=== PATIENT | female | born 1945 | race Caucasian/White ===

== ENCOUNTER 2017-05-03 09:08 | Inpatient (IN) | payer MEDICARE, OTHER ==
[~2017-05-03] VITALS: Ht 152.4 cm; Wt 35.8 kg
[~2017-05-03 09:08] MED LIST: ASPI81TA31 PO; ATOR10TA PO; Acetaminophen PO; CRANBERRY PO; DIAZ2TAB PO; DULO30CA2 PO; GABA100C PO; HYDR-552 PO; LANS15CA13 PO; QUET50TA PO; SODI473S8 TP
[2017-05-03 09:50] LABS: BASOPHILS % (AUTO) 0.7 % (0.0-2.0); EOSINOPHILS # (AUTO) 0.3 K/uL (0.0-0.7); EOSINOPHILS % (AUTO) 4.4 % (0.0-7.0); HEMATOCRIT 34.7 % (31.2-41.9); HEMOGLOBIN 11.1 g/dL (10.9-14.3); LYMPHOCYTES # (AUTO) 1.5 K/uL (20.0-40.0); LYMPHOCYTES % (AUTO) 26.1 % (20.5-51.5); MEAN CORPUSCULAR HGB CONC 32 g/dL (32.3-35.6); MEAN CORPUSCULAR VOLUME 96.9 fL (75.5-95.3); MONOCYTES # (AUTO) 0.7 K/uL (2.0-10.0); MONOCYTES % (AUTO) 11.7 % (0.0-11.0); NEUTROPHILS # (AUTO) 3.4 K/uL (1.8-8.9); NEUTROPHILS % (AUTO) 57.1 % (38.5-71.5); PLATELET COUNT (AUTO) 209 K/uL (179-408); RED BLOOD CELL COUNT(AUTO) 3.58 MIL/uL (3.63-4.92); WHITE BLOOD COUNT (AUTO) 5.9 K/uL (3.8-11.8)
[2017-05-03] MEDS ORDERED: LANS30CA54 PO (09:50)
[2017-05-03] MEDS ORDERED: DULO60CA45 PO (09:50)
[2017-05-03 09:54] LABS: CHLORIDE 102 mmol/L (98-107); CREATININE 0.8 mg/dL (0.6-1.3); GLUCOSE 88 mg/dL (74-106); POTASSIUM 3.6 mmol/L (3.5-5.1); UREA NITROGEN, BLOOD 20 mg/dL (7-18)
[2017-05-03 09:56] LABS: CARBON DIOXIDE 40 mmol/L (21-32)
[2017-05-03 10:06] LABS: ALANINE AMINOTRANSFERASE 11 U/L (14-59); ALKALINE PHOSPHATASE 65 U/L (50-136); ASPARTATE AMINOTRANSFERASE 11 U/L (15-37); BILIRUBIN,DIRECT 0.1 mg/dL (0.0-0.2); BILIRUBIN,TOTAL 0.2 mg/dL (0.2-1.0); TOTAL PROTEIN, SERUM 5.6 g/dL (6.4-8.2)
[2017-05-03 10:17] LABS: *BILIRUBIN,URIN NEGATIVE (NEGATIVE); *BLOOD, URINE 2+ (NEGATIVE); *CLARITY,URINE CLOUDY (CLEAR); *COLOR,URINE YELLOW (YELLOW); *KETONES,URINE NEGATIVE (NEGATIVE); *PROTEIN,URINE 2+ (NEGATIVE); *UROBILINOGEN,URINE 0.2 E.U./dl (NORMAL); LEUKOCYTE ESTERASE ,URINE 2+ (NEGATIVE); NITRITE, URINE NEGATIVE (NEGATIVE); PH,URINE 6.5 (5.0-8.0); UGLUCOSE NEGATIVE (NEGATIVE)
[2017-05-03 10:24] LABS: ABG BASE EXCESS 11.6 mmol/L; ABG HCO3 39.1 mmol/L; ABG PH 7.378 (7.350-7.450); ABG PO2 54.2 mmHg (75.0-100.0); ABG SITE RIGHT RADIAL; ABG TOTAL HEMOGLOBIN 11.5 G/dL (12.0-16.0); COHb 1.8 % (0.5-1.5); MetHb 0.3 % (0.0-1.5); O2Hb 84.1 % (94.0-97.0); VENT MODE Nasal Cannula
[2017-05-03 10:41] LABS: BACTERIA,URINE NONE SEEN /HPF (NONE SEEN); MUCUS,URINE FEW /LPF (0-FEW); SQUAMOUS EPITHELIAL CELL,UR FEW /HPF (NONE SEEN); WBC,URINE TNTC /HPF (0-3); YEAST,URINE MODERATE /HPF (NONE SEEN)
[2017-05-03] MEDS ORDERED: CEFTRIAXONE 1 G in IV DEXTROSE 5% 50 ML IV ONE (10:45)
[2017-05-03] MEDS ORDERED: FUROSEMIDE 20 MG/2 ML VIAL IV ONE ×2 (10:45→22:45)
[2017-05-03] MEDS ORDERED: ACETAMINOPHEN ES 500 MG TABLET PO ONE (11:00)
[2017-05-03] MEDS ORDERED: ACETAMINOPHEN ES 500 MG TABLET ONE (11:14)
[2017-05-03 13:23] VITALS: BP 103/82
[2017-05-03] MEDS ORDERED: HYDROMORPHONE 1 MG/1 ML DISP.SYRIN IV PRN ×2 (15:00→17:15)
[2017-05-03] MEDS ORDERED: POTASSIUM CHLORIDE 20 MEQ in IV D5/ 0.9% NACL 1,000 ML IV PRN (15:00)
[2017-05-03] MEDS ORDERED: ALBUTEROL SULFATE 2.5 MG/3 ML NEBU NEB PRN (15:00)
[2017-05-03] MEDS ORDERED: ALBUTEROL SULFATE 2.5 MG/ 0.5 ML NEBU NEB PRN (15:15)
[2017-05-03 15:54] VITALS: BP 144/70
[2017-05-03] MEDS ORDERED: FLUCONAZOLE 200 MG/NS 100ML IV 100 MG in PREMIXED 1 EACH IV SCH (16:00)
[2017-05-03] MEDS ORDERED: DIAZEPAM 10 MG/2 ML DISP.SYRIN IV PRN (17:15)
[2017-05-03] MEDS: HYDROMORPHONE 2 MG/1 ML DISP.SYRIN IV PRN (17:33)
[2017-05-03] MEDS: VANCOMYCIN IV 750 MG in IV DEXTROSE 5% 250 ML IV SCH (17:56)
[2017-05-03] MEDS ORDERED: AZITHROMYCIN IV 500 MG in IV DEXTROSE 5% 250 ML IV SCH (18:00)
[2017-05-03] MEDS: ALBUTEROL SULFATE 2.5 MG/3 ML NEBU NEB SCH (19:57)
[2017-05-03 20:00] VITALS: BP 143/63
[2017-05-03] MEDS: ATORVASTATIN 40 MG TABLET PO SCH (21:00)
[2017-05-03] MEDS: methylPREDNISolone SOD SUCC 40 MG/ML VIAL IV SCH (21:20)
[2017-05-03] MEDS: PIPERACILLIN/TAZOBACTAM/D5W 3.375 G in PREMIXED 1 EACH IV SCH (21:20)
[2017-05-03] MEDS: ENOXAPARIN SODIUM 30 MG/0.3 ML DISP.SYRIN SUBCUT SCH (21:28)
[2017-05-03] MEDS: ONDANSETRON 4 MG/2 ML VIAL IV PRN (21:37)
[2017-05-03] MEDS: IPRATROPIUM BROMIDE 0.5 MG/2.5 ML NEBU NEB PRN (22:38)
[2017-05-03] MEDS ORDERED: FUROSEMIDE 20 MG/2 ML VIAL ONE (23:23)
[2017-05-03] MEDS: LORAZEPAM 2 MG/1 ML VIAL IV PRN (23:59)
[2017-05-04] VITALS (15 sets, daily range): BP systolic 115–159; BP diastolic 52–102
[2017-05-04] MEDS: HYDROMORPHONE 2 MG/1 ML DISP.SYRIN IV PRN ×3 (02:29→21:41)
[2017-05-04] MEDS: PIPERACILLIN/TAZOBACTAM/D5W 3.375 G in PREMIXED 1 EACH IV SCH ×3 (05:37→21:33)
[2017-05-04 06:18] LABS: BASOPHILS % (AUTO) 0.3 % (0.0-2.0); EOSINOPHILS % (AUTO) 0.3 % (0.0-7.0); HEMATOCRIT 36.5 % (37-47); HEMOGLOBIN 11.8 G/DL (12.0-16.0); LYMPHOCYTES # (AUTO) 0.6 K/UL (0.8-4.8); LYMPHOCYTES % (AUTO) 13.5 % (20.5-51.5); MEAN CORPUSCULAR HEMOGLOBIN 30.8 UUG (27.0-31.0); MEAN CORPUSCULAR HGB CONC 32 g/dL (32.0-37.0); MEAN CORPUSCULAR VOLUME 95.1 FL (81.0-99.0); MONOCYTES # (AUTO) 0.1 K/UL (0.1-1.30); MONOCYTES % (AUTO) 1.9 % (0.0-11.0); NEUTROPHILS # (AUTO) 3.4 K/UL (1.8-8.9); PLATELET COUNT (AUTO) 316 K/UL (150-450); RED BLOOD CELL COUNT(AUTO) 3.84 MIL/UL (4.2-5.4); WHITE BLOOD COUNT (AUTO) 4.1 K/UL (4.0-11.2)
[2017-05-04 06:46] LABS: IRON, SERUM 23 ug/dL (50-175)
[2017-05-04 06:54] LABS: THYROID STIMULATING HORMONE 0.149 mIU/mL (0.358-3.740)
[2017-05-04 07:26] LABS: ALANINE AMINOTRANSFERASE 12 U/L (14-59); ALKALINE PHOSPHATASE 75 U/L (50-136); ASPARTATE AMINOTRANSFERASE 10 U/L (15-37); BILIRUBIN,TOTAL 0.3 mg/dL (0.2-1.0); CHLORIDE 98 mmol/L (98-107); CREATININE 0.6 mg/dL (0.6-1.3); GLUCOSE 132 mg/dL (74-106); MAGNESIUM 1.7 mg/dL (1.8-2.4); PHOSPHOROUS 3.4 mg/dL (2.5-4.9); POTASSIUM 3.6 mmol/L (3.5-5.1); TOTAL PROTEIN, SERUM 6.3 g/dL (6.4-8.2); UREA NITROGEN, BLOOD 11 mg/dL (7-18)
[2017-05-04] MEDS: ALBUTEROL SULFATE 2.5 MG/3 ML NEBU NEB SCH ×3 (07:26→19:24)
[2017-05-04] MEDS: methylPREDNISolone SOD SUCC 40 MG/ML VIAL IV SCH ×2 (08:20→20:43)
[2017-05-04] MEDS: FAMOTIDINE. 20 MG/2 ML VIAL IV SCH (08:21)
[2017-05-04] MEDS: ASPIRIN EC 81 MG TABLET.DR PO SCH ×2 (08:27→09:00)
[2017-05-04 08:28] LABS: CARBON DIOXIDE 41 mmol/L (21-32)
[2017-05-04] MEDS ORDERED: FUROSEMIDE 20 MG/2 ML VIAL IV SCH (09:00)
[2017-05-04 10:31] LABS: ABG HCO3 48.6 mmol/L; ABG PH 7.331 (7.350-7.450); ABG PO2 88.1 mmHg (75.0-100.0); ABG SITE RIGHT RADIAL; ABG TOTAL HEMOGLOBIN 12.8 G/dL (12.0-16.0); COHb 1.6 % (0.5-1.5); MetHb 0.3 % (0.0-1.5); O2Hb 93.9 % (94.0-97.0)
[2017-05-04] MEDS: LORAZEPAM 2 MG/1 ML VIAL IV PRN (11:04)
[2017-05-04] MEDS ORDERED: MAGNESIUM SULFATE/D5W 100 ML IV SCH (11:45)
[2017-05-04] MEDS: IPRATROPIUM BROMIDE 0.5 MG/2.5 ML NEBU NEB PRN (13:19)
[2017-05-04] MEDS ORDERED: Z GUARD REMEDY PASTE 57 GM TUBE TOP PRN (13:45)
[2017-05-04 15:20] LABS: ABG HCO3 45.8 mmol/L; ABG PCO2 68.6 mmHg (35.0-45.0); ABG PH 7.442 (7.350-7.450); ABG PO2 57.4 mmHg (75.0-100.0); ABG SITE LEFT RADIAL; COHb 1.9 % (0.5-1.5); MetHb 0.3 % (0.0-1.5); O2Hb 87.7 % (94.0-97.0); VENT MODE BIPAP
[2017-05-04] MEDS ORDERED: hydrALAZINE HCL 20 MG/1 ML VIAL IV PRN (18:15)
[2017-05-04] MEDS: FUROSEMIDE 40 MG/4 ML VIAL IV SCH (18:28)
[2017-05-04] MEDS: ONDANSETRON 4 MG/2 ML VIAL IV PRN (19:10)
[2017-05-04] MEDS: ATORVASTATIN 40 MG TABLET PO SCH (20:34)
[2017-05-04] MEDS: ENOXAPARIN SODIUM 30 MG/0.3 ML DISP.SYRIN SUBCUT SCH (20:44)
[2017-05-04] MEDS: Z GUARD REMEDY PASTE 57 GM TUBE TOP SCH (20:45)
[2017-05-04] MEDS: VANCOMYCIN IV 750 MG in IV DEXTROSE 5% 250 ML IV SCH (21:33)
[2017-05-05] VITALS (18 sets, daily range): BP systolic 84–128; BP diastolic 32–87
[2017-05-05] MEDS: LORAZEPAM 2 MG/1 ML VIAL IV PRN ×2 (01:00→14:49)
[2017-05-05 04:45] LABS: BASOPHILS # (AUTO) 0.1 K/uL (0.0-8.0); BASOPHILS % (AUTO) 1.3 % (0.0-2.0); HEMATOCRIT 38.9 % (37-47); HEMOGLOBIN 12.5 G/DL (12.0-16.0); LYMPHOCYTES # (AUTO) 0.8 K/UL (0.8-4.8); LYMPHOCYTES % (AUTO) 14.1 % (20.5-51.5); MEAN CORPUSCULAR HEMOGLOBIN 30.1 UUG (27.0-31.0); MEAN CORPUSCULAR HGB CONC 32 g/dL (32.0-37.0); MONOCYTES # (AUTO) 0.3 K/UL (0.1-1.30); MONOCYTES % (AUTO) 6.2 % (0.0-11.0); NEUTROPHILS # (AUTO) 4.3 K/UL (1.8-8.9); NEUTROPHILS % (AUTO) 78.4 % (38.5-71.5); PLATELET COUNT (AUTO) 375 K/UL (150-450); RED BLOOD CELL COUNT(AUTO) 4.14 MIL/UL (4.2-5.4); WHITE BLOOD COUNT (AUTO) 5.5 K/UL (4.0-11.2)
[2017-05-05 05:02] LABS: ALANINE AMINOTRANSFERASE 12 U/L (14-59); ALKALINE PHOSPHATASE 71 U/L (50-136); ASPARTATE AMINOTRANSFERASE 10 U/L (15-37); BILIRUBIN,TOTAL 0.4 mg/dL (0.2-1.0); CHLORIDE 92 mmol/L (98-107); CREATININE 0.8 mg/dL (0.6-1.3); GLUCOSE 116 mg/dL (74-106); LIPASE 59 U/L (73-393); MAGNESIUM 1.9 mg/dL (1.8-2.4); PHOSPHOROUS 3.6 mg/dL (2.5-4.9); POTASSIUM 3.4 mmol/L (3.5-5.1); TOTAL PROTEIN, SERUM 6.7 g/dL (6.4-8.2); UREA NITROGEN, BLOOD 16 mg/dL (7-18)
[2017-05-05 05:12] LABS: CARBON DIOXIDE 46 mmol/L (21-32)
[2017-05-05] MEDS: PIPERACILLIN/TAZOBACTAM/D5W 3.375 G in PREMIXED 1 EACH IV SCH ×3 (05:35→21:49)
[2017-05-05 05:41] LABS: ABG BASE EXCESS 18.1 mmol/L; ABG HCO3 44.6 mmol/L; ABG PCO2 59.7 mmHg (35.0-45.0); ABG PH 7.491 (7.350-7.450); ABG PO2 65.9 mmHg (75.0-100.0); ABG SITE LEFT RADIAL; COHb 1.6 % (0.5-1.5); MetHb 0.3 % (0.0-1.5)
[2017-05-05] MEDS: IV NORMAL SALINE 250 ML IV PRN (06:27)
[2017-05-05] MEDS: ALBUTEROL SULFATE 2.5 MG/3 ML NEBU NEB SCH ×3 (07:56→19:23)
[2017-05-05] MEDS: FUROSEMIDE 40 MG/4 ML VIAL IV SCH (08:22)
[2017-05-05] MEDS: FAMOTIDINE. 20 MG/2 ML VIAL IV SCH (08:23)
[2017-05-05] MEDS: methylPREDNISolone SOD SUCC 40 MG/ML VIAL IV SCH ×2 (08:23→20:20)
[2017-05-05] MEDS: Z GUARD REMEDY PASTE 57 GM TUBE TOP SCH ×2 (08:25→20:34)
[2017-05-05] MEDS: ASPIRIN EC 81 MG TABLET.DR PO SCH (08:58)
[2017-05-05] MEDS: HYDROMORPHONE 2 MG/1 ML DISP.SYRIN IV PRN (11:52)
[2017-05-05] MEDS ORDERED: POTASSIUM CHLORIDE 50 ML IV SCH (12:45)
[2017-05-05] MEDS ORDERED: POTASSIUM CHLORIDE 10 MEQ in IV DEXTROSE 5% 100 ML IV ONE (14:00)
[2017-05-05] MEDS ORDERED: ACETAzolamide SODIUM 500 MG VIAL IV ONE (15:30)
[2017-05-05] MEDS ORDERED: DIAZEPAM 2 MG TABLET PO PRN (17:00)
[2017-05-05] MEDS ORDERED: BISACODYL 10 MG SUPP.RECT RC PRN (17:15)
[2017-05-05] MEDS: GABAPENTIN 100 MG CAPSULE PO SCH (17:38)
[2017-05-05] MEDS: DULOXETINE 60 MG CAPSULE.DR PO SCH (17:39)
[2017-05-05] MEDS: ATORVASTATIN 40 MG TABLET PO SCH (20:20)
[2017-05-05] MEDS: ENOXAPARIN SODIUM 30 MG/0.3 ML DISP.SYRIN SUBCUT SCH (20:21)
[2017-05-05] MEDS: QUETIAPINE FUMARATE 25 MG TABLET PO SCH (20:35)
[2017-05-06] VITALS (7 sets, daily range): BP systolic 99–130; BP diastolic 51–80
[2017-05-06] MEDS: VANCOMYCIN IV 750 MG in IV DEXTROSE 5% 250 ML IV SCH (03:28)
[2017-05-06] MEDS: HYDROMORPHONE 2 MG/1 ML DISP.SYRIN IV PRN (04:47)
[2017-05-06 04:52] LABS: BASOPHILS # (AUTO) 0.1 K/uL (0.0-8.0); HEMATOCRIT 39.8 % (37-47); HEMOGLOBIN 12.9 G/DL (12.0-16.0); LYMPHOCYTES # (AUTO) 0.7 K/UL (0.8-4.8); LYMPHOCYTES % (AUTO) 9.2 % (20.5-51.5); MEAN CORPUSCULAR HEMOGLOBIN 30.5 UUG (27.0-31.0); MEAN CORPUSCULAR HGB CONC 32 g/dL (32.0-37.0); MEAN CORPUSCULAR VOLUME 94.2 FL (81.0-99.0); MONOCYTES # (AUTO) 0.3 K/UL (0.1-1.30); MONOCYTES % (AUTO) 3.5 % (0.0-11.0); NEUTROPHILS # (AUTO) 6.5 K/UL (1.8-8.9); NEUTROPHILS % (AUTO) 86.3 % (38.5-71.5); PLATELET COUNT (AUTO) 359 K/UL (150-450); RED BLOOD CELL COUNT(AUTO) 4.22 MIL/UL (4.2-5.4); WHITE BLOOD COUNT (AUTO) 7.6 K/UL (4.0-11.2)
[2017-05-06 05:05] LABS: ALANINE AMINOTRANSFERASE 13 U/L (14-59); ALKALINE PHOSPHATASE 61 U/L (50-136); ASPARTATE AMINOTRANSFERASE 26 U/L (15-37); BILIRUBIN,TOTAL 0.4 mg/dL (0.2-1.0); CARBON DIOXIDE 38 mmol/L (21-32); CHLORIDE 94 mmol/L (98-107); CREATININE 1.5 mg/dL (0.6-1.3); GLUCOSE 239 mg/dL (74-106); PHOSPHOROUS 4.3 mg/dL (2.5-4.9); POTASSIUM 3.9 mmol/L (3.5-5.1); TOTAL PROTEIN, SERUM 6.6 g/dL (6.4-8.2); UREA NITROGEN, BLOOD 32 mg/dL (7-18)
[2017-05-06] MEDS: IV NORMAL SALINE 250 ML IV PRN (05:28)
[2017-05-06] MEDS: PIPERACILLIN/TAZOBACTAM/D5W 3.375 G in PREMIXED 1 EACH IV SCH ×3 (05:29→21:20)
[2017-05-06] MEDS: ALBUTEROL SULFATE 2.5 MG/3 ML NEBU NEB SCH ×3 (07:35→19:44)
[2017-05-06] MEDS: GABAPENTIN 100 MG CAPSULE PO SCH (09:26)
[2017-05-06] MEDS: Z GUARD REMEDY PASTE 57 GM TUBE TOP SCH ×2 (09:26→21:24)
[2017-05-06] MEDS: DULOXETINE 60 MG CAPSULE.DR PO SCH (09:26)
[2017-05-06] MEDS: ASPIRIN EC 81 MG TABLET.DR PO SCH (09:26)
[2017-05-06] MEDS: FUROSEMIDE 40 MG/4 ML VIAL IV SCH (09:27)
[2017-05-06] MEDS: FAMOTIDINE 20 MG TABLET PO SCH (09:33)
[2017-05-06] MEDS: ACETAMINOPHEN 650 MG SUPP.RECT RC PRN (09:33)
[2017-05-06] MEDS ORDERED: IV NS 1000 ML 1,000 ML IV PRN (10:30)
[2017-05-06] MEDS: ATORVASTATIN 40 MG TABLET PO SCH (21:00)
[2017-05-06] MEDS: QUETIAPINE FUMARATE 25 MG TABLET PO SCH (21:00)
[2017-05-06] MEDS: ENOXAPARIN SODIUM 30 MG/0.3 ML DISP.SYRIN SUBCUT SCH (21:21)
[2017-05-07] VITALS (7 sets, daily range): BP systolic 100–128; BP diastolic 52–79
[2017-05-07] MEDS: HYDROMORPHONE 2 MG/1 ML DISP.SYRIN IV PRN ×2 (00:34→05:17)
[2017-05-07] MEDS: PIPERACILLIN/TAZOBACTAM/D5W 3.375 G in PREMIXED 1 EACH IV SCH ×3 (05:27→22:09)
[2017-05-07 06:55] LABS: BASOPHILS # (AUTO) 0.1 K/uL (0.0-8.0); BASOPHILS % (AUTO) 0.4 % (0.0-2.0); EOSINOPHILS # (AUTO) 0.1 K/uL (0.0-0.7); EOSINOPHILS % (AUTO) 1.1 % (0.0-7.0); HEMATOCRIT 43.5 % (37-47); HEMOGLOBIN 13.8 G/DL (12.0-16.0); LYMPHOCYTES # (AUTO) 2.3 K/UL (0.8-4.8); LYMPHOCYTES % (AUTO) 17.8 % (20.5-51.5); MEAN CORPUSCULAR HEMOGLOBIN 30.4 UUG (27.0-31.0); MEAN CORPUSCULAR HGB CONC 32 g/dL (32.0-37.0); MEAN CORPUSCULAR VOLUME 95.5 FL (81.0-99.0); MONOCYTES # (AUTO) 1.4 K/UL (0.1-1.30); MONOCYTES % (AUTO) 10.6 % (0.0-11.0); NEUTROPHILS # (AUTO) 9.2 K/UL (1.8-8.9); NEUTROPHILS % (AUTO) 70.1 % (38.5-71.5); PLATELET COUNT (AUTO) 376 K/UL (150-450); RED BLOOD CELL COUNT(AUTO) 4.55 MIL/UL (4.2-5.4); WHITE BLOOD COUNT (AUTO) 13.1 K/UL (4.0-11.2)
[2017-05-07 07:06] LABS: CHLORIDE 96 mmol/L (98-107); CREATININE 1.1 mg/dL (0.6-1.3); GLUCOSE 125 mg/dL (74-106); MAGNESIUM 2.2 mg/dL (1.8-2.4); PHOSPHOROUS 4.5 mg/dL (2.5-4.9); UREA NITROGEN, BLOOD 35 mg/dL (7-18)
[2017-05-07 07:10] LABS: CARBON DIOXIDE 40 mmol/L (21-32); POTASSIUM 2.5 mmol/L (3.5-5.1)
[2017-05-07] MEDS: ALBUTEROL SULFATE 2.5 MG/3 ML NEBU NEB SCH ×3 (08:17→19:49)
[2017-05-07 08:56] LABS: ABG BASE EXCESS 9.6 mmol/L; ABG HCO3 41.6 mmol/L; ABG PCO2 102.1 mmHg (35.0-45.0); ABG PH 7.228 (7.350-7.450); ABG PO2 68.9 mmHg (75.0-100.0); ABG SITE RIGHT RADIAL; ABG TOTAL HEMOGLOBIN 14.3 G/dL (12.0-16.0); COHb 2.1 % (0.5-1.5); MetHb 0.3 % (0.0-1.5); O2Hb 87.8 % (94.0-97.0); VENT MODE Nasal Cannula
[2017-05-07] MEDS: GABAPENTIN 100 MG CAPSULE PO SCH (09:00)
[2017-05-07] MEDS: DULOXETINE 30 MG CAPSULE.DR PO SCH (09:00)
[2017-05-07] MEDS: methylPREDNISolone SOD SUCC 40 MG/ML VIAL IV SCH ×2 (09:00→11:32)
[2017-05-07] MEDS: FAMOTIDINE 20 MG TABLET PO SCH ×2 (09:00→11:31)
[2017-05-07] MEDS: ASPIRIN EC 81 MG TABLET.DR PO SCH ×2 (09:00→11:31)
[2017-05-07] MEDS: Z GUARD REMEDY PASTE 57 GM TUBE TOP SCH ×2 (09:16→21:09)
[2017-05-07] MEDS ORDERED: FUROSEMIDE 20 MG/2 ML VIAL IV SCH ×2 (10:30→12:00)
[2017-05-07] MEDS ORDERED: POTASSIUM CHLORIDE 50 ML IV SCH (10:30)
[2017-05-07] MEDS: ACETAzolamide SODIUM 500 MG VIAL IV SCH (10:45)
[2017-05-07] MEDS: POTASSIUM CHLORIDE 10 MEQ in IV DEXTROSE 5% 50 ML IV SCH ×2 (12:59→13:10)
[2017-05-07 14:56] LABS: *BILIRUBIN,URIN NEGATIVE (NEGATIVE); *BLOOD, URINE NEGATIVE (NEGATIVE); *CLARITY,URINE CLEAR (CLEAR); *COLOR,URINE LIGHT YELLOW (YELLOW); *KETONES,URINE NEGATIVE (NEGATIVE); *PROTEIN,URINE NEGATIVE (NEGATIVE); *UROBILINOGEN,URINE 0.2 E.U./dl (NORMAL); LEUKOCYTE ESTERASE ,URINE TRACE (NEGATIVE); NITRITE, URINE NEGATIVE (NEGATIVE); UGLUCOSE NEGATIVE (NEGATIVE)
[2017-05-07 15:01] LABS: BACTERIA,URINE FEW /HPF (NONE SEEN); RBC,URINE 0-3 /HPF (0-3); SQUAMOUS EPITHELIAL CELL,UR FEW /HPF (NONE SEEN)
[2017-05-07 16:05] LABS: ABG BASE EXCESS 11.9 mmol/L; ABG HCO3 39.9 mmol/L; ABG PCO2 67.7 mmHg (35.0-45.0); ABG PH 7.388 (7.350-7.450); ABG PO2 69.6 mmHg (75.0-100.0); ABG SITE LEFT RADIAL; ABG TOTAL HEMOGLOBIN 13.7 G/dL (12.0-16.0); COHb 2.2 % (0.5-1.5); MetHb 0.3 % (0.0-1.5); O2Hb 91.4 % (94.0-97.0); VENT MODE Nasal Cannula
[2017-05-07] MEDS: ACETAMINOPHEN 650 MG SUPP.RECT RC PRN (17:35)
[2017-05-07] MEDS: ATORVASTATIN 40 MG TABLET PO SCH (21:00)
[2017-05-07] MEDS: QUETIAPINE FUMARATE 25 MG TABLET PO SCH (21:00)
[2017-05-07] MEDS: [UNRECOGNIZED DRUG - OTHER] EACHEYE SCH (21:07)
[2017-05-07] MEDS: ENOXAPARIN SODIUM 30 MG/0.3 ML DISP.SYRIN SUBCUT SCH (21:08)
[2017-05-07] MEDS: [UNRECOGNIZED DRUG - OTHER] LEFTEYE SCH (21:08)
[2017-05-08] VITALS (7 sets, daily range): BP systolic 79–115; BP diastolic 42–60
[2017-05-08] MEDS: QUETIAPINE FUMARATE 25 MG TABLET PO SCH (02:18)
[2017-05-08] MEDS: ATORVASTATIN 40 MG TABLET PO SCH ×2 (02:19→21:00)
[2017-05-08] MEDS ORDERED: IV NORMAL SALINE 250 ML IV ONE (04:30)
[2017-05-08] MEDS: PIPERACILLIN/TAZOBACTAM/D5W 3.375 G in PREMIXED 1 EACH IV SCH ×3 (05:28→21:03)
[2017-05-08 06:24] LABS: ABG BASE EXCESS 6.1 mmol/L; ABG HCO3 32.4 mmol/L; ABG PCO2 54.2 mmHg (35.0-45.0); ABG PH 7.394 (7.350-7.450); ABG PO2 67.4 mmHg (75.0-100.0); ABG SITE RIGHT RADIAL; ABG TOTAL HEMOGLOBIN 12.4 G/dL (12.0-16.0); COHb 1.6 % (0.5-1.5); MetHb 0.3 % (0.0-1.5); O2Hb 91.2 % (94.0-97.0); VENT MODE Nasal Cannula
[2017-05-08 07:29] LABS: BASOPHILS % (AUTO) 0.2 % (0.0-2.0); EOSINOPHILS % (AUTO) 0.5 % (0.0-7.0); HEMOGLOBIN 12.4 G/DL (12.0-16.0); LYMPHOCYTES # (AUTO) 1.3 K/UL (0.8-4.8); LYMPHOCYTES % (AUTO) 13.5 % (20.5-51.5); MEAN CORPUSCULAR HEMOGLOBIN 30.2 UUG (27.0-31.0); MEAN CORPUSCULAR HGB CONC 32 g/dL (32.0-37.0); MEAN CORPUSCULAR VOLUME 94.4 FL (81.0-99.0); MONOCYTES # (AUTO) 0.8 K/UL (0.1-1.30); MONOCYTES % (AUTO) 8.7 % (0.0-11.0); NEUTROPHILS # (AUTO) 7.3 K/UL (1.8-8.9); NEUTROPHILS % (AUTO) 77.1 % (38.5-71.5)
[2017-05-08 07:34] LABS: HEMATOCRIT 38.7 % (37-47); PLATELET COUNT (AUTO) 276 K/UL (150-450); RED BLOOD CELL COUNT(AUTO) 4.09 MIL/UL (4.2-5.4); WHITE BLOOD COUNT (AUTO) 9.7 K/UL (4.0-11.2)
[2017-05-08 07:35] LABS: CARBON DIOXIDE 35 mmol/L (21-32); CHLORIDE 101 mmol/L (98-107); CREATININE 1.2 mg/dL (0.6-1.3); GLUCOSE 132 mg/dL (74-106); PHOSPHOROUS 3.1 mg/dL (2.5-4.9); UREA NITROGEN, BLOOD 45 mg/dL (7-18)
[2017-05-08 07:40] LABS: POTASSIUM 2.4 mmol/L (3.5-5.1)
[2017-05-08] MEDS: ALBUTEROL SULFATE 2.5 MG/3 ML NEBU NEB SCH ×3 (08:33→19:23)
[2017-05-08] MEDS: DULOXETINE 30 MG CAPSULE.DR PO SCH (09:00)
[2017-05-08] MEDS: GABAPENTIN 100 MG CAPSULE PO SCH (09:00)
[2017-05-08] MEDS: CHOLECALCIFEROL 1,000 UNIT TABLET PO SCH (09:18)
[2017-05-08] MEDS: methylPREDNISolone SOD SUCC 40 MG/ML VIAL IV SCH (09:18)
[2017-05-08] MEDS: CYANOCOBALAMIN 1000 MCG/ML VIAL IM SCH (09:18)
[2017-05-08] MEDS: ACETAzolamide SODIUM 500 MG VIAL IV SCH (09:18)
[2017-05-08] MEDS: FAMOTIDINE 20 MG TABLET PO SCH (09:18)
[2017-05-08] MEDS: ASPIRIN EC 81 MG TABLET.DR PO SCH (09:18)
[2017-05-08] MEDS: Z GUARD REMEDY PASTE 57 GM TUBE TOP SCH ×2 (09:19→21:03)
[2017-05-08] MEDS ORDERED: FUROSEMIDE 20 MG/2 ML VIAL IV SCH (09:49)
[2017-05-08] MEDS: ACETAMINOPHEN 650 MG SUPP.RECT RC PRN ×2 (12:21→22:38)
[2017-05-08] MEDS: FUROSEMIDE 20 MG/2 ML VIAL IV SCH (12:21)
[2017-05-08] MEDS ORDERED: POTASSIUM CHLORIDE 20 MEQ TAB.PRT.SR PO ONE (13:45)
[2017-05-08] MEDS ORDERED: POTASSIUM CHLORIDE 20 MEQ POWDER PACKET PO ONE (14:15)
[2017-05-08] MEDS: LACTOBACILLUS RHAMNOSUS GG 1 EACH CAPSULE PO SCH (21:00)
[2017-05-08] MEDS: ENOXAPARIN SODIUM 30 MG/0.3 ML DISP.SYRIN SUBCUT SCH (21:02)
[2017-05-08] MEDS: [UNRECOGNIZED DRUG - OTHER] LEFTEYE SCH ×2 (21:03→21:36)
[2017-05-08] MEDS: [UNRECOGNIZED DRUG - OTHER] EACHEYE SCH ×2 (21:04→21:37)
[2017-05-08] MEDS: METRONIDAZOLE 500 MG/NS 100ML 500 MG in PREMIXED 1 EACH IV SCH (23:28)
[2017-05-08] MEDS ORDERED: METRONIDAZOLE 500 MG/NS 100ML 100 ML IV ONE (23:37)
[2017-05-09] VITALS: BP 101/60
[2017-05-09] MEDS ORDERED: METRONIDAZOLE 500 MG/NS 100ML 100 ML IV ONE (00:13)
[2017-05-09 04:00] VITALS: BP 132/55
[2017-05-09] MEDS: PIPERACILLIN/TAZOBACTAM/D5W 3.375 G in PREMIXED 1 EACH IV SCH ×3 (05:28→22:57)
[2017-05-09] MEDS: METRONIDAZOLE 500 MG/NS 100ML 500 MG in PREMIXED 1 EACH IV SCH ×2 (06:39→14:22)
[2017-05-09 07:09] LABS: BASOPHILS % (AUTO) 0.4 % (0.0-2.0); EOSINOPHILS # (AUTO) 0.1 K/uL (0.0-0.7); EOSINOPHILS % (AUTO) 0.9 % (0.0-7.0); HEMATOCRIT 38.6 % (31.2-41.9); HEMOGLOBIN 12.5 g/dL (10.9-14.3); LYMPHOCYTES # (AUTO) 1.4 K/uL (20.0-40.0); LYMPHOCYTES % (AUTO) 16.1 % (20.5-51.5); MEAN CORPUSCULAR HGB CONC 32 g/dL (32.3-35.6); MEAN CORPUSCULAR VOLUME 95.8 fL (75.5-95.3); MONOCYTES # (AUTO) 0.8 K/uL (2.0-10.0); MONOCYTES % (AUTO) 9.7 % (0.0-11.0); NEUTROPHILS # (AUTO) 6.3 K/uL (1.8-8.9); NEUTROPHILS % (AUTO) 72.9 % (38.5-71.5); PLATELET COUNT (AUTO) 267 K/uL (179-408); RED BLOOD CELL COUNT(AUTO) 4.03 MIL/uL (3.63-4.92); WHITE BLOOD COUNT (AUTO) 8.6 K/uL (3.8-11.8)
[2017-05-09 07:12] LABS: CARBON DIOXIDE 33 mmol/L (21-32); CHLORIDE 105 mmol/L (98-107); CREATININE 0.9 mg/dL (0.6-1.3); GLUCOSE 113 mg/dL (74-106); MAGNESIUM 2.2 mg/dL (1.8-2.4); PHOSPHOROUS 3.2 mg/dL (2.5-4.9); POTASSIUM 3.1 mmol/L (3.5-5.1); UREA NITROGEN, BLOOD 45 mg/dL (7-18)
[2017-05-09] MEDS: ALBUTEROL SULFATE 2.5 MG/3 ML NEBU NEB SCH ×3 (07:42→19:37)
[2017-05-09] MEDS: IPRATROPIUM BROMIDE 0.5 MG/2.5 ML NEBU NEB PRN ×2 (07:42→19:37)
[2017-05-09] MEDS: ACETAMINOPHEN 650 MG SUPP.RECT RC PRN (08:03)
[2017-05-09] MEDS: CYANOCOBALAMIN 1000 MCG/ML VIAL IM SCH (08:49)
[2017-05-09] MEDS: methylPREDNISolone SOD SUCC 40 MG/ML VIAL IV SCH (08:49)
[2017-05-09] MEDS: ACETAzolamide SODIUM 500 MG VIAL IV SCH (08:50)
[2017-05-09] MEDS: DULOXETINE 30 MG CAPSULE.DR PO SCH (08:50)
[2017-05-09] MEDS: ASPIRIN EC 81 MG TABLET.DR PO SCH (08:50)
[2017-05-09] MEDS: GABAPENTIN 100 MG CAPSULE PO SCH (08:50)
[2017-05-09] MEDS: FAMOTIDINE 20 MG TABLET PO SCH (08:50)
[2017-05-09] MEDS: CHOLECALCIFEROL 1,000 UNIT TABLET PO SCH (08:50)
[2017-05-09] MEDS: Z GUARD REMEDY PASTE 57 GM TUBE TOP SCH ×2 (08:51→20:38)
[2017-05-09] MEDS: LACTOBACILLUS RHAMNOSUS GG 1 EACH CAPSULE PO SCH ×2 (08:54→20:38)
[2017-05-09] MEDS ORDERED: POTASSIUM CHLORIDE 50 ML IV SCH (10:30)
[2017-05-09] MEDS: FUROSEMIDE 20 MG/2 ML VIAL IV SCH (11:22)
[2017-05-09 11:25] VITALS: BP 104/51
[2017-05-09] MEDS ORDERED: POTASSIUM CHLORIDE 20 MEQ POWDER PACKET PO ONE (12:15)
[2017-05-09 15:34] VITALS: BP 103/57
[2017-05-09 20:00] VITALS: BP 130/77
[2017-05-09] MEDS: [UNRECOGNIZED DRUG - OTHER] EACHEYE SCH (20:37)
[2017-05-09] MEDS: ATORVASTATIN 40 MG TABLET PO SCH (20:38)
[2017-05-09] MEDS: [UNRECOGNIZED DRUG - OTHER] LEFTEYE SCH (20:38)
[2017-05-09] MEDS: ENOXAPARIN SODIUM 30 MG/0.3 ML DISP.SYRIN SUBCUT SCH (20:40)
[2017-05-09] MEDS: QUETIAPINE FUMARATE 25 MG TABLET PO SCH (20:41)
[2017-05-10] VITALS: BP 133/66
[2017-05-10] MEDS: HYDROCODONE/APAP 5-325MG TABLET PO PRN ×2 (00:02→08:07)
[2017-05-10] MEDS: HYDROMORPHONE 2 MG/1 ML DISP.SYRIN IV PRN (01:37)
[2017-05-10 04:00] VITALS: BP 113/59
[2017-05-10 05:26] VITALS: BP 113/59
[2017-05-10] MEDS: PIPERACILLIN/TAZOBACTAM/D5W 3.375 G in PREMIXED 1 EACH IV SCH ×2 (05:30→13:37)
[2017-05-10] MEDS: ALBUTEROL SULFATE 2.5 MG/3 ML NEBU NEB SCH ×2 (07:16→13:04)
[2017-05-10 07:47] LABS: BASOPHILS % (AUTO) 0.3 % (0.0-2.0); EOSINOPHILS # (AUTO) 0.1 K/uL (0.0-0.7); EOSINOPHILS % (AUTO) 0.8 % (0.0-7.0); HEMATOCRIT 35.6 % (37-47); HEMOGLOBIN 11.2 G/DL (12.0-16.0); LYMPHOCYTES # (AUTO) 1.4 K/UL (0.8-4.8); LYMPHOCYTES % (AUTO) 14.3 % (20.5-51.5); MEAN CORPUSCULAR HEMOGLOBIN 29.9 UUG (27.0-31.0); MEAN CORPUSCULAR HGB CONC 32 g/dL (32.0-37.0); MEAN CORPUSCULAR VOLUME 94.9 FL (81.0-99.0); MONOCYTES # (AUTO) 0.8 K/UL (0.1-1.30); MONOCYTES % (AUTO) 8.2 % (0.0-11.0); NEUTROPHILS # (AUTO) 7.6 K/UL (1.8-8.9); NEUTROPHILS % (AUTO) 76.4 % (38.5-71.5); PLATELET COUNT (AUTO) 279 K/UL (150-450); RED BLOOD CELL COUNT(AUTO) 3.76 MIL/UL (4.2-5.4); WHITE BLOOD COUNT (AUTO) 9.9 K/UL (4.0-11.2)
[2017-05-10 08:00] LABS: CARBON DIOXIDE 29 mmol/L (21-32); CHLORIDE 106 mmol/L (98-107); CREATININE 0.9 mg/dL (0.6-1.3); GLUCOSE 95 mg/dL (74-106); PHOSPHOROUS 3.4 mg/dL (2.5-4.9); POTASSIUM 3.6 mmol/L (3.5-5.1); UREA NITROGEN, BLOOD 40 mg/dL (7-18)
[2017-05-10] MEDS: GABAPENTIN 100 MG CAPSULE PO SCH ×3 (08:41→11:00)
[2017-05-10] MEDS: LACTOBACILLUS RHAMNOSUS GG 1 EACH CAPSULE PO SCH (08:41)
[2017-05-10] MEDS: ASPIRIN EC 81 MG TABLET.DR PO SCH (08:41)
[2017-05-10] MEDS: DULOXETINE 30 MG CAPSULE.DR PO SCH (08:41)
[2017-05-10] MEDS: FAMOTIDINE 20 MG TABLET PO SCH (08:41)
[2017-05-10] MEDS: CYANOCOBALAMIN 1000 MCG/ML VIAL IM SCH (08:42)
[2017-05-10] MEDS: methylPREDNISolone SOD SUCC 40 MG/ML VIAL IV SCH (08:42)
[2017-05-10] MEDS: CHOLECALCIFEROL 1,000 UNIT TABLET PO SCH (08:42)
[2017-05-10] MEDS: Z GUARD REMEDY PASTE 57 GM TUBE TOP SCH (08:43)
[2017-05-10] MEDS ORDERED: ACETAzolamide 250 MG TABLET PO SCH (09:00)
[2017-05-10 11:28] VITALS: BP 96/50
[2017-05-10] MEDS ORDERED: PRED20TA PO (13:58)
[2017-05-10] MEDS ORDERED: POTA10TA15 PO (13:58)
[2017-05-10] MEDS ORDERED: FURO-152 PO (13:58)
[2017-05-10] MEDS ORDERED: LEVO500T90 PO (13:58)
[2017-05-10] MEDS ORDERED: ALBU2.5V38 NEB (13:58)
[2017-05-10] MEDS ORDERED: LACT1CAP57 PO (13:58)
[2017-05-10] MEDS ORDERED: PRED10TA PO (13:58)
[2017-05-10 15:31] VITALS: BP 94/46
== END 2017-05-10 16:09 | disposition home health service (06) | DRG 871 ==
LOC: ER 09:08 → TELE 12:20 → CCU 05-04 11:36 → MED 05-06 06:00 → TELE 05-06 06:57
PROVIDERS: ADMIT Internal Medicine; ATTEND Internal Medicine
PROC: 05H533Z Insertion of Infusion Device into Right Subclavian Vein, Percutaneous Approach (ICD-10-PCS; 2017-05-03)
PROC: 5A09357 Assistance with Respiratory Ventilation, Less than 24 Consecutive Hours, Continuous Positive Airway Pressure (ICD-10-PCS; principal; 2017-05-04)
DX: A41.9 Sepsis, unspecified organism (principal); J69.0 Pneumonitis due to inhalation of food and vomit; J96.21 Acute and chronic respiratory failure with hypoxia; E43 Unspecified severe protein-calorie malnutrition; G93.40 Encephalopathy, unspecified; I50.33 Acute on chronic diastolic (congestive) heart failure; N17.9 Acute kidney failure, unspecified; D68.59 Other primary thrombophilia; E83.42 Hypomagnesemia; J96.22 Acute and chronic respiratory failure with hypercapnia; R53.2 Functional quadriplegia; B37.49 Other urogenital candidiasis; J44.0 Chronic obstructive pulmonary disease with (acute) lower respiratory infection; M84.48XA Pathological fracture, other site, initial encounter for fracture; J44.1 Chronic obstructive pulmonary disease with (acute) exacerbation; G35 Multiple sclerosis; D63.8 Anemia in other chronic diseases classified elsewhere; I11.0 Hypertensive heart disease with heart failure; D50.9 Iron deficiency anemia, unspecified; E87.6 Hypokalemia; F17.210 Nicotine dependence, cigarettes, uncomplicated; F41.9 Anxiety disorder, unspecified; M06.9 Rheumatoid arthritis, unspecified; Z90.710 Acquired absence of both cervix and uterus; Z98.2 Presence of cerebrospinal fluid drainage device; Z87.440 Personal history of urinary (tract) infections; Z86.011 Personal history of benign neoplasm of the brain; E05.90 Thyrotoxicosis, unspecified without thyrotoxic crisis or storm; I25.10 Atherosclerotic heart disease of native coronary artery without angina pectoris; I25.2 Old myocardial infarction; Z79.899 Other long term (current) drug therapy; J84.10 Pulmonary fibrosis, unspecified; E88.09 Other disorders of plasma-protein metabolism, not elsewhere classified; K76.9 Liver disease, unspecified; L89.899 Pressure ulcer of other site, unspecified stage; Z99.81 Dependence on supplemental oxygen; G89.4 Chronic pain syndrome
CPT/HCPCS: 36415; 36600; 70030-TC; 71010; 82306; 83550; 83605; 83690; 83735; 84100; 84443; 85025; 85730; 86850; 86900; 86901; 87040; 87086; 87400; 92526; 92610; 93005; 94640; 94660; 94664; A4663; J1120; J1170; J1450; J1650; J1940; J2060; J2405; J2543; J2920; J3370; J3420; J3475; J3480; J3490; J3590; J7030; J7040; J7042; J7050; J7060

== ENCOUNTER 2017-06-27 07:13 | Day surgery (SDC) | payer MEDICARE, OTHER ==
[~2017-06-27 07:13] MED LIST changes: +ALBU2.5V38 NEB; -Acetaminophen PO; +BALANCED SALT IRRIG SOLN COMB1 500 ML, EPINEPHRINE-PF 1:1000 1 MG IO ONE; -CRANBERRY PO; -DIAZ2TAB PO; -DULO30CA2 PO; +DULO60CA45 PO; +FURO-152 PO; +LACT1CAP57 PO; -LANS15CA13 PO; +LANS30CA54 PO; +LEVO500T90 PO; +POTA10TA15 PO; +PRED10TA PO; +PRED20TA PO; -SODI473S8 TP
[2017-06-27] MEDS ORDERED: PROPOFOL 200 MG/20 ML BOTTLE IV ONE (07:14)
[2017-06-27] MEDS ORDERED: IV LACTATED RINGERS SOLUTION 1,000 ML BAG IV ONE (07:14)
[2017-06-27] MEDS ORDERED: TETRACAINE HCL 0.5% OPHT DROP 2 ML BOTTLE ONE ×2 (07:56→08:10)
[2017-06-27] MEDS ORDERED: CIPROFLOXACIN 0.3% OPHT DROP 2.5 ML BOTTLE ONE (07:56)
[2017-06-27] MEDS ORDERED: CYCLOPENTOLATE 1% OPHT DROP 2 ML BOTTLE ONE (07:56)
[2017-06-27] MEDS ORDERED: FLURBIPROFEN 0.03% OPHT DROP 2.5 ML BOTTLE ONE (07:56)
[2017-06-27] MEDS ORDERED: PHENYLEPHRINE 2.5% OPHT DROP 2 ML BOTTLE ONE (07:57)
[2017-06-27] MEDS ORDERED: PILOCARPINE 1% OPHT DROP 15 ML BOTTLE ONE (08:09)
[2017-06-27] MEDS ORDERED: NEO/POLYMYX B/DEXAME OPHT OINT 3.5 GM TUBE ONE (08:09)
[2017-06-27] MEDS ORDERED: LIDOCAINE HCL-MPF 1% 5 ML VIAL ONE (08:10)
[2017-06-27] MEDS ORDERED: BUPIVACAINE PF 0.5% 30 ML VIAL ONE (08:11)
[2017-06-27] MEDS ORDERED: HYALURONATE SODIUM 8.5 MG/0.85 ML DISP.SYRIN ONE ×2 (08:11→09:49)
[2017-06-27] MEDS ORDERED: BALANCED SALT IRRIG SOLN COMB2 15 ML IRRIG.SOLN ONE (08:11)
[2017-06-27] MEDS ORDERED: EPINEPHRINE 1 MG/1 ML AMP ONE (08:11)
[2017-06-27 08:26] LABS: BASOPHILS # (AUTO) 0.1 K/uL (0.0-8.0); BASOPHILS % (AUTO) 0.6 % (0.0-2.0); EOSINOPHILS # (AUTO) 0.2 K/uL (0.0-0.7); EOSINOPHILS % (AUTO) 1.9 % (0.0-7.0); HEMATOCRIT 41.4 % (31.2-41.9); HEMOGLOBIN 13.6 g/dL (10.9-14.3); LYMPHOCYTES # (AUTO) 1.7 K/uL (20.0-40.0); LYMPHOCYTES % (AUTO) 19.6 % (20.5-51.5); MEAN CORPUSCULAR HEMOGLOBIN 30.8 uug (24.7-32.8); MEAN CORPUSCULAR HGB CONC 33 g/dL (32.3-35.6); MEAN CORPUSCULAR VOLUME 93.7 fL (75.5-95.3); MONOCYTES # (AUTO) 0.6 K/uL (2.0-10.0); MONOCYTES % (AUTO) 6.6 % (0.0-11.0); NEUTROPHILS % (AUTO) 71.3 % (38.5-71.5); PLATELET COUNT (AUTO) 241 K/uL (179-408); RED BLOOD CELL COUNT(AUTO) 4.42 MIL/uL (3.63-4.92); WHITE BLOOD COUNT (AUTO) 8.4 K/uL (3.8-11.8)
[2017-06-27 08:33] LABS: CARBON DIOXIDE 32 mmol/L (21-32); CHLORIDE 107 mmol/L (98-107); CREATININE 0.5 mg/dL (0.6-1.3); GLUCOSE 97 mg/dL (74-106); POTASSIUM 4.5 mmol/L (3.5-5.1); UREA NITROGEN, BLOOD 20 mg/dL (7-18)
[2017-06-27] MEDS ORDERED: MIDAZOLAM HCL 2 MG/2 ML VIAL ONE (09:08)
[2017-06-27] MEDS ORDERED: FENTANYL CITRATE 100 MCG/2 ML AMPUL ONE (09:08)
[2017-06-27] MEDS ORDERED: TRYPAN BLUE 0.5 ML DISP.SYRIN ONE (09:12)
[2017-07-11] MEDS ORDERED: CEPH500C2 PO (18:02)
== END 2017-06-27 11:15 | disposition home or self-care (01) ==
LOC: DS 07:13
PROVIDERS: ATTEND Dermatology MOHS-Micrographic Surgery
DX: H26.8 Other specified cataract (principal); H40.89 Other specified glaucoma; J44.9 Chronic obstructive pulmonary disease, unspecified; K21.9 Gastro-esophageal reflux disease without esophagitis; I25.10 Atherosclerotic heart disease of native coronary artery without angina pectoris; I10 Essential (primary) hypertension; G43.909 Migraine, unspecified, not intractable, without status migrainosus; I21.3 ST elevation (STEMI) myocardial infarction of unspecified site
CPT/HCPCS: 36415; 85025; 85730; A4663; J0171; J2250; J3010; J3490; J3590; J7120; J7321; Q9968; V2632

== ENCOUNTER 2017-07-08 12:35 | Inpatient (IN) | payer MEDICARE, OTHER ==
[~2017-07-08] VITALS: Ht 152.4 cm; Wt 45.4 kg
[~2017-07-08 12:35] MED LIST changes: -BALANCED SALT IRRIG SOLN COMB1 500 ML, EPINEPHRINE-PF 1:1000 1 MG IO ONE
[2017-07-08] MEDS ORDERED: IV NORMAL SALINE 1000 ML BAG IV ONE (12:45)
[2017-07-08 13:11] LABS: BASOPHILS % (AUTO) 0.7 % (0.0-2.0); EOSINOPHILS # (AUTO) 0.1 K/uL (0.0-0.7); EOSINOPHILS % (AUTO) 2.2 % (0.0-7.0); HEMATOCRIT 41.4 % (31.2-41.9); HEMOGLOBIN 13.4 g/dL (10.9-14.3); LYMPHOCYTES # (AUTO) 1.6 K/uL (20.0-40.0); LYMPHOCYTES % (AUTO) 24.9 % (20.5-51.5); MEAN CORPUSCULAR HEMOGLOBIN 30.3 uug (24.7-32.8); MEAN CORPUSCULAR HGB CONC 32 g/dL (32.3-35.6); MEAN CORPUSCULAR VOLUME 93.5 fL (75.5-95.3); MONOCYTES # (AUTO) 0.6 K/uL (2.0-10.0); NEUTROPHILS # (AUTO) 4.2 K/uL (1.8-8.9); NEUTROPHILS % (AUTO) 63.2 % (38.5-71.5); PLATELET COUNT (AUTO) 202 K/uL (179-408); RED BLOOD CELL COUNT(AUTO) 4.43 MIL/uL (3.63-4.92); WHITE BLOOD COUNT (AUTO) 6.6 K/uL (3.8-11.8)
[2017-07-08 13:18] LABS: CARBON DIOXIDE 34 mmol/L (21-32); CHLORIDE 106 mmol/L (98-107); CREATININE 0.7 mg/dL (0.6-1.3); GLUCOSE 103 mg/dL (74-106); POTASSIUM 3.6 mmol/L (3.5-5.1); UREA NITROGEN, BLOOD 17 mg/dL (7-18)
[2017-07-08 13:24] LABS: ALANINE AMINOTRANSFERASE 12 U/L (14-59); ALKALINE PHOSPHATASE 86 U/L (50-136); ASPARTATE AMINOTRANSFERASE 13 U/L (15-37); BILIRUBIN,DIRECT 0.1 mg/dL (0.0-0.2); BILIRUBIN,TOTAL 0.3 mg/dL (0.2-1.0)
[2017-07-08 15:15] LABS: *BILIRUBIN,URIN NEGATIVE (NEGATIVE); *BLOOD, URINE 2+ (NEGATIVE); *CLARITY,URINE CLOUDY (CLEAR); *COLOR,URINE YELLOW (YELLOW); *KETONES,URINE NEGATIVE (NEGATIVE); *PROTEIN,URINE 2+ (NEGATIVE); *UROBILINOGEN,URINE 0.2 E.U./dl (NORMAL); LEUKOCYTE ESTERASE ,URINE 1+ (NEGATIVE); NITRITE, URINE NEGATIVE (NEGATIVE); UGLUCOSE NEGATIVE (NEGATIVE)
[2017-07-08 15:24] LABS: BACTERIA,URINE MODERATE /HPF (NONE SEEN); SQUAMOUS EPITHELIAL CELL,UR MODERATE /HPF (NONE SEEN); WBC,URINE TNTC /HPF (0-3)
[2017-07-08] MEDS ORDERED: MAGNESIUM HYDROXIDE 30 ML LIQUID UDC PO ONE (15:30)
[2017-07-08] MEDS ORDERED: CEFTRIAXONE 1 G in IV DEXTROSE 5% 50 ML IV ONE (15:30)
--- NOTE | 2017-07-08 16:00 | NUR ---
pt has bilat hip pressure ulcers and is bedbound. pt family refusing to have dressings removed for assessment or photos. notes wound center cares for them
[2017-07-08] MEDS ORDERED: CEFTRIAXONE 1 G VIAL ONE (16:31)
--- NOTE | 2017-07-08 17:00 | NUR ---
no distress. pt alert. color normal. no sever sob. report given to desmond meehan
[2017-07-08 18:00] VITALS: BP 157/79
--- NOTE | 2017-07-08 18:04 | NUR ---
PT IN ROOM, IN NO ACUTE DISTRESS. REQUESTING PAIN MEDICATION AND A SLEEPING PILL FOR HS. FAMILY REFUSING PICTURES TO BE TAKEN OF PTS WOUNDS. WILL CALL MD FOR ADMITTING ORDERS
[2017-07-08] MEDS: HYDROMORPHONE 1 MG/1 ML DISP.SYRIN IV PRN (18:57)
[2017-07-08 19:00] VITALS: BP 160/76
--- NOTE | 2017-07-08 19:30 | NUR ---
RECEIVED IN BED AWAKE, FAMILY AT BEDSIDE. IN NO ACUTE DISTRESS. AWAITING FOR ORDERS FROM DR. CARTER. SAFETY MEASURES RENDERED.
[2017-07-08] MEDS ORDERED: ALBUTEROL SULFATE 2.5 MG/3 ML NEBU NEB PRN (22:45)
[2017-07-08] MEDS ORDERED: ACETAMINOPHEN 650 MG SUPP.RECT RC PRN (22:45)
[2017-07-08] MEDS ORDERED: CEFTRIAXONE 1 G in IV DEXTROSE 5% 50 ML IV SCH (22:45)
[2017-07-08] MEDS: IV D5 1/2 NS 1000 ML 1,000 ML IV PRN (23:38)
[2017-07-09] VITALS: BP 146/98
[2017-07-09] MEDS: LORAZEPAM 2 MG/1 ML VIAL IV PRN ×2 (00:12→12:59)
[2017-07-09] MEDS ORDERED: LORAZEPAM 2 MG/1 ML VIAL ONE (00:26)
[2017-07-09] MEDS ORDERED: CEFTRIAXONE 1 G VIAL ONE (01:07)
--- NOTE | 2017-07-09 02:09 | NUR ---
HANDS OFF REPORT TO AVINASH ESPITIA
--- NOTE | 2017-07-09 02:11 | NUR ---
PT ASLEEP ON BED. PT IV INTACT AND PATENT. VS WITHIN NORMAL LIMIT EXCEPT BP 146/98. WILL CONTINUE TO MONITOR. ON BEDSIDE. SAFETY AND COMFORT PROVIDED.
--- NOTE | 2017-07-09 02:11 | NUR ---
BILATERAL HIP DRESSING INTACT. PT AND FAMILY REFUSED TO CHANGE AND OPEN THE DRESSING. WILL ENDORSE TO THE NEXT SHIFT NURSE. NOTIFY THE CHARGE NURSE. WILL CONTINUE TO MONITOR. SAFETY AND COMFORT PROVIDED.
[2017-07-09 04:00] VITALS: BP 96/69
--- NOTE | 2017-07-09 06:16 | NUR ---
PT SLEPT INTERMITTENTLY. PT BP IS HIGH . RIGHT AR, 164/86 LEFT ARM 165/93. CALLED THE DOCTOR. STILL WAITING FOR THE REPLY. I NOTIFY THE CHARGE NURSE. WILL ENDORSE TO THE NEXT SHIFT.SHOWS NO SIGNS OF DISTRESS.SAFETY AND COMFORT PROVIDED.
[2017-07-09 07:03] LABS: BASOPHILS % (AUTO) 0.8 % (0.0-2.0); EOSINOPHILS # (AUTO) 0.2 K/uL (0.0-0.7); EOSINOPHILS % (AUTO) 2.6 % (0.0-7.0); HEMATOCRIT 38.3 % (31.2-41.9); HEMOGLOBIN 12.5 g/dL (10.9-14.3); LYMPHOCYTES # (AUTO) 1.4 K/uL (20.0-40.0); LYMPHOCYTES % (AUTO) 23.8 % (20.5-51.5); MEAN CORPUSCULAR HEMOGLOBIN 30.5 uug (24.7-32.8); MEAN CORPUSCULAR HGB CONC 33 g/dL (32.3-35.6); MEAN CORPUSCULAR VOLUME 93.6 fL (75.5-95.3); MONOCYTES # (AUTO) 0.6 K/uL (2.0-10.0); MONOCYTES % (AUTO) 9.8 % (0.0-11.0); NEUTROPHILS # (AUTO) 3.7 K/uL (1.8-8.9); PLATELET COUNT (AUTO) 200 K/uL (179-408); RED BLOOD CELL COUNT(AUTO) 4.09 MIL/uL (3.63-4.92); WHITE BLOOD COUNT (AUTO) 5.9 K/uL (3.8-11.8)
--- NOTE | 2017-07-09 07:07 | NUR ---
THE DOCTOR WAS NOTIFIED ON HYPERTENSION OF THE PT. ORDERED BY PHONE VASOTEC 2.5 MG IV Q6PRN. WILL ENDORSE TO THE DAYSHIFT NURSE.
[2017-07-09] MEDS ORDERED: ENALAPRILAT DIHYDRATE INJ 2.5 MG in IV NORMAL SALINE 50 ML IV PRN (07:15)
[2017-07-09 08:15] LABS: BASOPHILS % (MANUAL) 1 % (0-2); EOSINOPHILS % (MANUAL) 4 % (0-8); LYMPHOCYTES % (MANUAL) 25 % (20-40); METAMYELOCYTES % 1 % (0-1); MONOCYTES % (MANUAL) 9 % (2-10); NEUTROPHILS % (MANUAL) 60 % (42-75)
[2017-07-09 08:51] LABS: ALANINE AMINOTRANSFERASE 8 U/L (14-59); ALKALINE PHOSPHATASE 71 U/L (50-136); ASPARTATE AMINOTRANSFERASE 14 U/L (15-37); BILIRUBIN,TOTAL 0.2 mg/dL (0.2-1.0); CARBON DIOXIDE 27 mmol/L (21-32); CHLORIDE 106 mmol/L (98-107); CREATININE 0.5 mg/dL (0.6-1.3); GLUCOSE 87 mg/dL (74-106); MAGNESIUM 1.3 mg/dL (1.8-2.4); POTASSIUM 3.6 mmol/L (3.5-5.1); TOTAL PROTEIN, SERUM 6.3 g/dL (6.4-8.2); UREA NITROGEN, BLOOD 12 mg/dL (7-18)
[2017-07-09] MEDS: FAMOTIDINE. 20 MG/2 ML VIAL IV SCH ×2 (09:43→20:35)
[2017-07-09 11:08] VITALS: BP 140/91
--- NOTE | 2017-07-09 12:00 | NUR ---
PT. ANXIOUS AND RESTLESS [id number]. PT.'S DAUGHTER REFUSES TO ALLOW ME TO GIVE EITHER THE VASOTEC OR ATIVAN. WILL NOTIFY DR. GARCIA.
[2017-07-09] MEDS ORDERED: ENALAPRILAT DIHYDRATE INJ 2.5 MG in IV NORMAL SALINE 50 ML IV ONE (12:15)
[2017-07-09] MEDS: MAGNESIUM SULFATE/D5W 100 ML IV SCH ×2 (14:28→16:41)
[2017-07-09 15:30] VITALS: BP 130/65
--- NOTE | 2017-07-09 19:14 | NUR ---
PT'S. FAMILY REFUSED MEDS, REFUSED TO ALLOW TURNING OF PT. REFUSED BP. MEDS. REFUSED CT-SCAN. REFUSED TO ALLOW RECHECKING OF BP.
--- NOTE | 2017-07-09 19:30 | NUR ---
RECEIVED PT ASLEEP ON BED. CAREGIVER ON BEDSIDE. DAYSHIFT NURSE ENDORSE TO ME THAT THE DAUGHTER WANTS NO TURNING OF POSITION TO THE PT, NO VITAL SIGNS, TO BE DONE WHILE THE PT IS STILL SLEEPING SINCE HER MOTHER DIDN'T SLEEP WELL FOR THE PAST FEW DAYS, THEY DON'T WANT VASOTEC FOR THE PT TO BE GIVEN AND CT SCAN ALSO. I NOTIFY MY CHARGE NURSE. I CHECKED THAT THE BILATERAL HIP DRESSING STILL INTACT. PT AND FAMILY REFUSED TO CHANGE THE DRESSING AND OPEN IT. SAFETY AND COMFORT PROVIDED.
[2017-07-09] MEDS: IV D5 1/2 NS 1000 ML 1,000 ML IV PRN (20:34)
[2017-07-09] MEDS: ACETAMINOPHEN 325 MG TABLET PO PRN (22:50)
[2017-07-09] MEDS ORDERED: ACETAMINOPHEN 325 MG TABLET ONE (23:06)
--- NOTE | 2017-07-09 23:30 | NUR ---
1120PM ORDERED THROUGH TELEPHONE MESSAGE THAT PT CAN BE GIVEN ZOFRAN FOR NAUSEA OF THE PT AND ALSO ATIVAN HS THAT WAS GIVEN [id number] AGO PER DAY SHIFT. BECAUSE THE WANTS THE PT TO SLEEP. CHARGE NURSE WAS ALSO NOTIFIED.
[2017-07-09] MEDS ORDERED: ONDANSETRON 4 MG/2 ML VIAL ONE (23:43)
[2017-07-09] MEDS: CEFTRIAXONE 1 G in IV NORMAL SALINE 50 ML IV SCH (23:44)
[2017-07-09] MEDS: ONDANSETRON 4 MG/2 ML VIAL IV PRN (23:52)
[2017-07-10] VITALS: BP 159/81
[2017-07-10] MEDS: HYDROMORPHONE 1 MG/1 ML DISP.SYRIN IV PRN ×4 (01:08→22:56)
--- NOTE | 2017-07-10 02:12 | NUR ---
BILATERAL HIP DRESSING INTACT. PT AND FAMILY REFUSED TO OPEN THE DRESSING.
[2017-07-10] MEDS: LORAZEPAM 2 MG/1 ML VIAL IV PRN (03:50)
--- NOTE | 2017-07-10 06:59 | NUR ---
PT SLEPT INTERMITTENTLY. BP WAS HIGH BUT GETTING LOWER. GIVEN PAIN MEDICATION RECENT BLOOD PRESSURE, ZOFRAN AND ATIVAN ON MY SHIFT. PT TOLERATED THE MEDICATION. IS 120/79. ON BEDSIDE . PT SHOWS NO SIGNS OF DISTRESS.
[2017-07-10 07:10] LABS: BASOPHILS % (AUTO) 0.7 % (0.0-2.0); EOSINOPHILS # (AUTO) 0.1 K/uL (0.0-0.7); EOSINOPHILS % (AUTO) 2.3 % (0.0-7.0); HEMATOCRIT 41.1 % (31.2-41.9); HEMOGLOBIN 13.3 g/dL (10.9-14.3); LYMPHOCYTES # (AUTO) 1.5 K/uL (20.0-40.0); LYMPHOCYTES % (AUTO) 23.7 % (20.5-51.5); MEAN CORPUSCULAR HEMOGLOBIN 30.4 uug (24.7-32.8); MEAN CORPUSCULAR HGB CONC 33 g/dL (32.3-35.6); MEAN CORPUSCULAR VOLUME 93.6 fL (75.5-95.3); MONOCYTES # (AUTO) 0.6 K/uL (2.0-10.0); MONOCYTES % (AUTO) 9.3 % (0.0-11.0); NEUTROPHILS # (AUTO) 4.1 K/uL (1.8-8.9); PLATELET COUNT (AUTO) 219 K/uL (179-408); RED BLOOD CELL COUNT(AUTO) 4.39 MIL/uL (3.63-4.92); WHITE BLOOD COUNT (AUTO) 6.4 K/uL (3.8-11.8)
[2017-07-10 08:51] LABS: CARBON DIOXIDE 30 mmol/L (21-32); CHLORIDE 102 mmol/L (98-107); CREATININE 0.5 mg/dL (0.6-1.3); GLUCOSE 113 mg/dL (74-106); MAGNESIUM 2.2 mg/dL (1.8-2.4); PHOSPHOROUS 4.3 mg/dL (2.5-4.9); POTASSIUM 3.5 mmol/L (3.5-5.1); UREA NITROGEN, BLOOD 7 mg/dL (7-18)
[2017-07-10] MEDS: FAMOTIDINE. 20 MG/2 ML VIAL IV SCH (09:43)
[2017-07-10] MEDS: ONDANSETRON 4 MG/2 ML VIAL IV PRN (09:48)
[2017-07-10] MEDS: ACETAMINOPHEN 325 MG TABLET PO PRN ×3 (10:32→20:58)
[2017-07-10 11:40] VITALS: BP 90/58
--- NOTE | 2017-07-10 12:00 | NUR ---
PT CALM AND RELAX. NO COMPLAIN OF HEADACHE Addendum: 07/10/17 at 1527 by USMAN HERCULES RN Amended: Links added.
[2017-07-10 15:32] VITALS: BP 129/98
--- NOTE | 2017-07-10 19:00 | NUR ---
RECEIVED PATIENT IN BED, AWAKE, CONT ON PAIN MANAGEMENT, KEPT CLEAN DRY AND COMFORTABLE. FAMILY AT BEDSIDE, TURN AND REPOSITION, CALL LIGHT WITHIN REACH.
[2017-07-10 19:55] VITALS: BP 112/62
[2017-07-10] MEDS: IV D5 1/2 NS 1000 ML 1,000 ML IV PRN (21:11)
[2017-07-10] MEDS: FAMOTIDINE 20 MG TABLET PO SCH (21:15)
[2017-07-10] MEDS: CEFTRIAXONE 1 G in IV NORMAL SALINE 50 ML IV SCH (23:10)
[2017-07-11] VITALS: BP 109/69
[2017-07-11 04:00] VITALS: BP 115/61
--- NOTE | 2017-07-11 04:52 | NUR ---
PATIENT SLEPT MOST OF THE NIGHT, NO SOB NO CHEST PAIN, CONT PAIN MANAGEMENT, TURN AND REPOSITION EVERY TWO HOURS, KEPT CLEAN AND DRY, AT BEDSIDE.
[2017-07-11] MEDS: HYDROMORPHONE 1 MG/1 ML DISP.SYRIN IV PRN (06:09)
[2017-07-11] MEDS ORDERED: HYDROMORPHONE 1 MG/1 ML DISP.SYRIN ONE (06:21)
[2017-07-11 06:57] LABS: BASOPHILS # (AUTO) 0.1 K/uL (0.0-8.0); BASOPHILS % (AUTO) 0.9 % (0.0-2.0); EOSINOPHILS # (AUTO) 0.3 K/uL (0.0-0.7); EOSINOPHILS % (AUTO) 4.7 % (0.0-7.0); LYMPHOCYTES # (AUTO) 1.9 K/uL (20.0-40.0); LYMPHOCYTES % (AUTO) 30.4 % (20.5-51.5); MEAN CORPUSCULAR HEMOGLOBIN 30.6 uug (24.7-32.8); MEAN CORPUSCULAR HGB CONC 33 g/dL (32.3-35.6); MEAN CORPUSCULAR VOLUME 94.1 fL (75.5-95.3); MONOCYTES # (AUTO) 0.6 K/uL (2.0-10.0); NEUTROPHILS # (AUTO) 3.3 K/uL (1.8-8.9); PLATELET COUNT (AUTO) 205 K/uL (179-408); RED BLOOD CELL COUNT(AUTO) 3.93 MIL/uL (3.63-4.92); WHITE BLOOD COUNT (AUTO) 6.2 K/uL (3.8-11.8)
[2017-07-11 07:04] LABS: ALANINE AMINOTRANSFERASE 10 U/L (14-59); ALKALINE PHOSPHATASE 65 U/L (50-136); ASPARTATE AMINOTRANSFERASE 17 U/L (15-37); BILIRUBIN,TOTAL 0.3 mg/dL (0.2-1.0); CARBON DIOXIDE 30 mmol/L (21-32); CHLORIDE 106 mmol/L (98-107); CREATININE 0.6 mg/dL (0.6-1.3); GLUCOSE 94 mg/dL (74-106); MAGNESIUM 1.8 mg/dL (1.8-2.4); PHOSPHOROUS 3.8 mg/dL (2.5-4.9); POTASSIUM 3.4 mmol/L (3.5-5.1); TOTAL PROTEIN, SERUM 5.6 g/dL (6.4-8.2); UREA NITROGEN, BLOOD 12 mg/dL (7-18)
--- NOTE | 2017-07-11 08:00 | NUR ---
Sleeping. O2 at 2L/NC. IVF infusing. Spouse at bedside
[2017-07-11] MEDS: FAMOTIDINE 20 MG TABLET PO SCH (09:02)
[2017-07-11] MEDS: ACETAMINOPHEN 325 MG TABLET PO PRN ×2 (09:02→17:50)
[2017-07-11] MEDS: HYDROMORPHONE 2 MG/1 ML DISP.SYRIN IV PRN ×2 (10:30→15:19)
--- NOTE | 2017-07-11 10:30 | NUR ---
Incontinence care done. Refused repositioning.
[2017-07-11 11:03] VITALS: BP 113/68
[2017-07-11] MEDS ORDERED: POTASSIUM CHLORIDE 50 ML IV SCH (11:45)
[2017-07-11] MEDS ORDERED: POTASSIUM CHLORIDE 10 MEQ CAPSULE.SA PO ONE (12:15)
--- NOTE | 2017-07-11 12:50 | NUR ---
K 3.4, Potassium po given as ordered.
[2017-07-11] MEDS ORDERED: POTASSIUM CHLORIDE 10 MEQ in IV NORMAL SALINE 50 ML IV ONE (13:00)
[2017-07-11] MEDS ORDERED: CEPHALEXIN MONOHYDRATE 500 MG CAPSULE PO SCH (14:45)
[2017-07-11 15:00] VITALS: BP 129/71
[2017-07-11] MEDS: IV D5 1/2 NS 1000 ML 1,000 ML IV PRN (15:22)
[2017-07-11] MEDS ORDERED: CEPH500C2 PO (18:02)
--- NOTE | 2017-07-11 18:39 | NUR ---
With discharge order to home with home health to continue. Saline lock removed. Tele removed. Prescription and DC instruction given to spouse, verbalized understanding. Refused to check skin/wound and photo. Patient bedrest. Ambulance arranged for sweet pickled fruit maker.
--- NOTE | 2017-07-11 19:55 | NUR ---
RECEIVED REPORT FROM DAYSHIFT RN THAT PATIENT IS WAITING FOR AMBULANCE TO PICK AND TAKE PATIENT HOME. AT BEDSIDE. ALL NEEDS ATTENDED.
--- NOTE | 2017-07-11 20:00 | NUR ---
IS VERY UPSET THAT AMBULANCE WILL NOT ARRIVE UNTIL [address]. [facility] [facility]TER [facility] THAT HE IS NOT WAITING FOR AMBULANCE TO ALLERGIST/MD AND WILL TAKE HIS HOME PRIVATELY VIA CAR. ALL NEEDS ATTENDED. DR. CARTER AWARE AND POWER HOUSE ENGINEER AWARE. ALL NEEDS ATTENDED.
== END 2017-07-11 20:04 | disposition home health service (06) | DRG 871 ==
LOC: ER 12:39 → TELE 16:36
PROVIDERS: ADMIT Internal Medicine; ATTEND Internal Medicine
DX: A41.9 Sepsis, unspecified organism (principal); G93.41 Metabolic encephalopathy; J96.21 Acute and chronic respiratory failure with hypoxia; G93.6 Cerebral edema; G62.81 Critical illness polyneuropathy; E43 Unspecified severe protein-calorie malnutrition; D68.59 Other primary thrombophilia; G35 Multiple sclerosis; E83.42 Hypomagnesemia; J96.22 Acute and chronic respiratory failure with hypercapnia; R53.2 Functional quadriplegia; N39.0 Urinary tract infection, site not specified; Z68.1 Body mass index [BMI] 19.9 or less, adult; J98.11 Atelectasis; I50.32 Chronic diastolic (congestive) heart failure; R65.20 Severe sepsis without septic shock; D32.0 Benign neoplasm of cerebral meninges; Z98.2 Presence of cerebrospinal fluid drainage device; M06.9 Rheumatoid arthritis, unspecified; M80.08XD Age-related osteoporosis with current pathological fracture, vertebra(e), subsequent encounter for fracture with routine healing; F17.210 Nicotine dependence, cigarettes, uncomplicated; E87.6 Hypokalemia; G89.4 Chronic pain syndrome; E05.90 Thyrotoxicosis, unspecified without thyrotoxic crisis or storm; I25.2 Old myocardial infarction; I25.10 Atherosclerotic heart disease of native coronary artery without angina pectoris; J43.9 Emphysema, unspecified; Z99.81 Dependence on supplemental oxygen; M19.90 Unspecified osteoarthritis, unspecified site; N31.9 Neuromuscular dysfunction of bladder, unspecified; Z90.710 Acquired absence of both cervix and uterus; G31.84 Mild cognitive impairment of uncertain or unknown etiology; Z79.82 Long term (current) use of aspirin; Z86.011 Personal history of benign neoplasm of the brain
CPT/HCPCS: 36415; 70030-TC; 70450; 71045; 83605; 83735; 84100; 85025; 85730; 87040; 87086; 93005; A4663; C1758; J0696; J1170; J2060; J2405; J3475; J3490; J7060

== ENCOUNTER 2017-08-02 12:35 | Inpatient (IN) | payer MEDICARE, OTHER ==
[~2017-08-02] VITALS: Ht 152.4 cm; Wt 56.5 kg
[~2017-08-02 12:35] MED LIST changes: +CEPH500C2 PO; -LEVO500T90 PO; -PRED20TA PO
[2017-08-02] MEDS ORDERED: DIAZ5TAB4 PO (13:06)
[2017-08-02] MEDS ORDERED: CRAN450T9 PO (13:06)
[2017-08-02 13:28] LABS: BASOPHILS # (AUTO) 0.1 K/uL (0.0-8.0); BASOPHILS % (AUTO) 0.6 % (0.0-2.0); EOSINOPHILS # (AUTO) 0.3 K/uL (0.0-0.7); EOSINOPHILS % (AUTO) 2.5 % (0.0-7.0); HEMATOCRIT 39.6 % (31.2-41.9); HEMOGLOBIN 12.6 g/dL (10.9-14.3); LYMPHOCYTES # (AUTO) 1.3 K/uL (20.0-40.0); LYMPHOCYTES % (AUTO) 10.5 % (20.5-51.5); MEAN CORPUSCULAR HEMOGLOBIN 29.9 uug (24.7-32.8); MEAN CORPUSCULAR HGB CONC 32 g/dL (32.3-35.6); MEAN CORPUSCULAR VOLUME 93.8 fL (75.5-95.3); MONOCYTES # (AUTO) 0.7 K/uL (2.0-10.0); MONOCYTES % (AUTO) 5.7 % (0.0-11.0); NEUTROPHILS # (AUTO) 9.9 K/uL (1.8-8.9); NEUTROPHILS % (AUTO) 80.7 % (38.5-71.5); PLATELET COUNT (AUTO) 193 K/uL (179-408); RED BLOOD CELL COUNT(AUTO) 4.22 MIL/uL (3.63-4.92); WHITE BLOOD COUNT (AUTO) 12.3 K/uL (3.8-11.8)
[2017-08-02 13:39] LABS: CARBON DIOXIDE 33 mmol/L (21-32); CHLORIDE 102 mmol/L (98-107); CREATININE 0.9 mg/dL (0.6-1.3); GLUCOSE 108 mg/dL (74-106); POTASSIUM 4.1 mmol/L (3.5-5.1); UREA NITROGEN, BLOOD 22 mg/dL (7-18)
[2017-08-02 13:45] LABS: ALANINE AMINOTRANSFERASE 12 U/L (14-59); ALKALINE PHOSPHATASE 105 U/L (50-136); ASPARTATE AMINOTRANSFERASE 12 U/L (15-37); BILIRUBIN,DIRECT 0.1 mg/dL (0.0-0.2); BILIRUBIN,TOTAL 0.2 mg/dL (0.2-1.0); TOTAL PROTEIN, SERUM 6.6 g/dL (6.4-8.2)
--- NOTE | 2017-08-02 14:00 | NUR ---
PT IS IN ROOM #1A. DR CREWS EVALUATED THE PT.
[2017-08-02 14:30] LABS: *BILIRUBIN,URIN NEGATIVE (NEGATIVE); *BLOOD, URINE 2+ (NEGATIVE); *CLARITY,URINE TURBID (CLEAR); *COLOR,URINE YELLOW (YELLOW); *KETONES,URINE NEGATIVE (NEGATIVE); *PROTEIN,URINE 2+ (NEGATIVE); *UROBILINOGEN,URINE 0.2 E.U./dl (NORMAL); LEUKOCYTE ESTERASE ,URINE 2+ (NEGATIVE); NITRITE, URINE NEGATIVE (NEGATIVE); UGLUCOSE NEGATIVE (NEGATIVE)
[2017-08-02] MEDS ORDERED: CEFTRIAXONE 1 G in IV DEXTROSE 5% 50 ML IV ONE (14:45)
[2017-08-02] MEDS ORDERED: IV NORMAL SALINE 1000 ML BAG IV ONE (14:45)
[2017-08-02 14:46] LABS: BACTERIA,URINE FEW /HPF (NONE SEEN); SQUAMOUS EPITHELIAL CELL,UR FEW /HPF (NONE SEEN); WBC,URINE TNTC /HPF (0-3)
[2017-08-02] MEDS ORDERED: CEFTRIAXONE 1 G VIAL ONE (14:51)
--- NOTE | 2017-08-02 15:53 | NUR ---
Pt. admitted to TELE, under care of Belongs List completed
--- NOTE | 2017-08-02 16:05 | NUR ---
REPORT GIVEN TO UTILITY SYSTEM REPAIRER.
[2017-08-02 16:55] VITALS: BP 107/59
--- NOTE | 2017-08-02 20:00 | NUR ---
Received patient in bed w/ daughter in room. No SOB noted. Vital signs are WNL, sinus rhythm sinus tach on the monitor.
[2017-08-02 20:58] VITALS: BP 120/73
--- NOTE | 2017-08-02 21:15 | NUR ---
Patient resting in bed, with & daughter in room. Daughter stated patient is nauseous. No signs of nausea vomiting noted. Called Dr. Taylor for orders. Will continue to monitor.
[2017-08-02] MEDS ORDERED: LORAZEPAM 2 MG/1 ML VIAL IV ONE (21:30)
[2017-08-02] MEDS: ONDANSETRON 4 MG/2 ML VIAL IV PRN (21:48)
--- NOTE | 2017-08-02 21:49 | NUR ---
Agitated at this time BP 122/71 HR 109 O2Sat 94%. Ativan 0.5mg IVP adm., Zofran 4mg IVP given for nausea. Sinus tach on the monitor.
[2017-08-02] MEDS ORDERED: CEFTRIAXONE 1 G in IV DEXTROSE 5% 50 ML IV SCH (22:00)
[2017-08-02] MEDS ORDERED: ACETAMINOPHEN 325 MG TABLET PO PRN (22:00)
[2017-08-02] MEDS: IV NS 1000 ML 1,000 ML IV PRN (22:09)
--- NOTE | 2017-08-02 22:26 | NUR ---
Rocephin 1 gm IV Q 24 hrs not administered, patient already received it in ER prior to admission.
[2017-08-03 00:16] VITALS: BP 144/75
[2017-08-03] MEDS: MORPHINE SULFATE 4 MG/1 ML DISP.SYRIN IV PRN ×2 (03:32→20:14)
[2017-08-03 04:00] VITALS: BP 132/90
--- NOTE | 2017-08-03 06:40 | NUR ---
PT REMAINS DISORIENTED AND CONFUSED AT THIS TIME WITH AT BEDSIDE. TELE NOTED TO BE SINUS TACHY; NO S/S OF DISTRESS NOTED AT THIS TIME. PAIN MANAGEMENT PROVIDED. RIGHT WRIST IV LINE INFILTRATED, PT IS CONTRACTED AND A HARD STICK. NEW PERIPHERAL LINE INSERTED ON RIGHT LOWER LEG- MD MADE AWARE.
[2017-08-03 06:43] LABS: BASOPHILS % (AUTO) 0.7 % (0.0-2.0); EOSINOPHILS # (AUTO) 0.1 K/uL (0.0-0.7); EOSINOPHILS % (AUTO) 1.6 % (0.0-7.0); HEMATOCRIT 38.3 % (31.2-41.9); HEMOGLOBIN 12.4 g/dL (10.9-14.3); LYMPHOCYTES % (AUTO) 18.1 % (20.5-51.5); MEAN CORPUSCULAR HEMOGLOBIN 30.2 uug (24.7-32.8); MEAN CORPUSCULAR HGB CONC 32 g/dL (32.3-35.6); MEAN CORPUSCULAR VOLUME 93.4 fL (75.5-95.3); MONOCYTES # (AUTO) 0.5 K/uL (2.0-10.0); MONOCYTES % (AUTO) 8.9 % (0.0-11.0); NEUTROPHILS # (AUTO) 4.1 K/uL (1.8-8.9); NEUTROPHILS % (AUTO) 70.7 % (38.5-71.5); PLATELET COUNT (AUTO) 149 K/uL (179-408); WHITE BLOOD COUNT (AUTO) 5.7 K/uL (3.8-11.8)
[2017-08-03 06:55] LABS: ALANINE AMINOTRANSFERASE 12 U/L (14-59); ALKALINE PHOSPHATASE 93 U/L (50-136); ASPARTATE AMINOTRANSFERASE 18 U/L (15-37); BILIRUBIN,TOTAL 0.2 mg/dL (0.2-1.0); CARBON DIOXIDE 33 mmol/L (21-32); CHLORIDE 106 mmol/L (98-107); CREATININE 0.7 mg/dL (0.6-1.3); GLUCOSE 96 mg/dL (74-106); MAGNESIUM 1.4 mg/dL (1.8-2.4); POTASSIUM 4.2 mmol/L (3.5-5.1); TOTAL PROTEIN, SERUM 6.1 g/dL (6.4-8.2); UREA NITROGEN, BLOOD 16 mg/dL (7-18)
--- NOTE | 2017-08-03 07:25 | NUR ---
Received report from biological engineer nurse, patient in bed mumbling, appears to be confused. Bed in low position, side rails up x2, bed alarm on. at the bedside sleeping.
[2017-08-03] MEDS: FAMOTIDINE. 20 MG/2 ML VIAL IV SCH (08:24)
[2017-08-03] MEDS: MAGNESIUM SULFATE/D5W 100 ML IV SCH ×2 (11:10→12:04)
--- NOTE | 2017-08-03 14:21 | NUR ---
WOUND CARE CONSULT: PT'S DAUGHTER AT BEDSIDE REFUSED SKIN ASSESSMENT AND STATED THAT FAMILY TAKES CARE OF WOUND DRESSINGS PER DR HAIRSTON, SURGEON. DAUGHTER STATES THAT DRESSINGS TO BILATERAL HIPS ARE TO STAY IN PLACE FOR 1 WEEK. PT ON FIRST STEP MATTRESS. DISCUSSED SKIN PROTECTION WITH NURSING STAFF. ALL SKIN PROTECTION MEASURES IN PLACE. WILL SEE PRN. ANNE IN AGREEMENT WITH PLAN OF CARE.
[2017-08-03] MEDS ORDERED: Z GUARD REMEDY PASTE 57 GM TUBE TOP PRN (14:30)
[2017-08-03] MEDS: CEFTRIAXONE 1 G in IV DEXTROSE 5% 50 ML IV SCH (15:17)
[2017-08-03] MEDS: ONDANSETRON 4 MG/2 ML VIAL IV PRN (17:02)
[2017-08-03] MEDS: IV NS 1000 ML 1,000 ML IV PRN (17:26)
--- NOTE | 2017-08-03 18:17 | NUR ---
PATIENT HAS BEEN COOPERATIVE WITH CARE TODAY, AND GOT SOME SLEEP. PATIENTS FAMILY REFUSING TO HAVE ROUTINE VITALS DUE TO DISCOMFORT OF PATIENT AND LACK OF SLEEP OVER THE LAST THREE DAYS. PATIENT HAD SOME INTERMITTENT NAUSEA WHICH WAS RELIEVED WITH ZOFRAN. CURRENTLY PATIENT IS IN BED, NO EVIDENCE OF DISTRESS NOTED AT THIS TIME, BED IN LOW POSITION, SIDE RAILS UP X2, BED ALARM ON.
[2017-08-03] MEDS ORDERED: HYDROCODONE/APAP 5-325MG TABLET PO PRN (19:15)
[2017-08-03] MEDS ORDERED: ALBUTEROL SULFATE 2.5 MG/3 ML NEBU NEB PRN (19:15)
[2017-08-03 20:35] VITALS: BP 136/75
[2017-08-03] MEDS: DOCUSATE SODIUM 100 MG CAPSULE PO SCH (20:35)
[2017-08-03] MEDS: ATORVASTATIN 10 MG TABLET PO SCH (20:35)
[2017-08-03] MEDS: QUETIAPINE FUMARATE 25 MG TABLET PO SCH (21:15)
[2017-08-03] MEDS ORDERED: ENOXAPARIN SODIUM 30 MG/0.3 ML DISP.SYRIN SUBCUT SCH ×2 (21:15→22:23)
[2017-08-03] MEDS: Z GUARD REMEDY PASTE 57 GM TUBE TOP SCH (21:26)
--- NOTE | 2017-08-04 00:30 | NUR ---
awake at beginning of shift. daughter at bedside. no acute distress noted. repositioned for comfort. turned from sides to sides. pain meds given as needed. IVF's infusing well. tolerated po meds well. kept comfortable. making needs known.
[2017-08-04] MEDS: MORPHINE SULFATE 4 MG/1 ML DISP.SYRIN IV PRN ×2 (01:52→20:52)
[2017-08-04 04:54] VITALS: BP 158/79
[2017-08-04 07:25] LABS: BASOPHILS # (AUTO) 0.1 K/uL (0.0-8.0); BASOPHILS % (AUTO) 1.3 % (0.0-2.0); EOSINOPHILS # (AUTO) 0.2 K/uL (0.0-0.7); EOSINOPHILS % (AUTO) 4.4 % (0.0-7.0); HEMATOCRIT 35.5 % (31.2-41.9); HEMOGLOBIN 11.5 g/dL (10.9-14.3); LYMPHOCYTES # (AUTO) 1.6 K/uL (20.0-40.0); LYMPHOCYTES % (AUTO) 30.4 % (20.5-51.5); MEAN CORPUSCULAR HEMOGLOBIN 30.5 uug (24.7-32.8); MEAN CORPUSCULAR HGB CONC 32 g/dL (32.3-35.6); MEAN CORPUSCULAR VOLUME 94.1 fL (75.5-95.3); MONOCYTES # (AUTO) 0.5 K/uL (2.0-10.0); MONOCYTES % (AUTO) 10.2 % (0.0-11.0); NEUTROPHILS # (AUTO) 2.8 K/uL (1.8-8.9); NEUTROPHILS % (AUTO) 53.7 % (38.5-71.5); PLATELET COUNT (AUTO) 150 K/uL (179-408); RED BLOOD CELL COUNT(AUTO) 3.77 MIL/uL (3.63-4.92); WHITE BLOOD COUNT (AUTO) 5.1 K/uL (3.8-11.8)
--- NOTE | 2017-08-04 07:30 | NUR ---
Received report from mini shifter nurse, patient in bed asleep, no evidence of distress noted at this time, bed in low position, side rails up x2, bed alarm on. at bedside requesting that the patient not be bothered and allowed to sleep.
[2017-08-04 07:36] LABS: CARBON DIOXIDE 34 mmol/L (21-32); CHLORIDE 106 mmol/L (98-107); CREATININE 0.5 mg/dL (0.6-1.3); GLUCOSE 96 mg/dL (74-106); MAGNESIUM 1.9 mg/dL (1.8-2.4); PHOSPHOROUS 3.6 mg/dL (2.5-4.9); POTASSIUM 3.9 mmol/L (3.5-5.1); UREA NITROGEN, BLOOD 9 mg/dL (7-18)
[2017-08-04 08:03] LABS: EOSINOPHILS % (MANUAL) 2 % (0-8); LYMPHOCYTES % (MANUAL) 35 % (20-40); METAMYELOCYTES % 1 % (0-1); MONOCYTES % (MANUAL) 13 % (2-10); MYELOCYTES % 1 % (0-0); NEUTROPHILS % (MANUAL) 48 % (42-75)
[2017-08-04] MEDS: FAMOTIDINE. 20 MG/2 ML VIAL IV SCH (08:47)
[2017-08-04] MEDS: LACTOBACILLUS RHAMNOSUS GG 1 EACH CAPSULE PO SCH ×2 (08:48→17:14)
[2017-08-04] MEDS: ASPIRIN 81 MG TAB.CHEW PO SCH (08:48)
[2017-08-04] MEDS: GABAPENTIN 100 MG CAPSULE PO SCH (08:48)
[2017-08-04] MEDS: DULOXETINE 60 MG CAPSULE.DR PO SCH (08:48)
[2017-08-04] MEDS: Z GUARD REMEDY PASTE 57 GM TUBE TOP SCH ×2 (08:49→20:10)
[2017-08-04] MEDS: IV NS 1000 ML 1,000 ML IV PRN (10:30)
[2017-08-04 11:23] VITALS: BP 108/65
[2017-08-04 16:01] VITALS: BP 131/71
--- NOTE | 2017-08-04 17:00 | NUR ---
Notified Dr. Taylor the results of urine, fluconazole ordered.
[2017-08-04] MEDS: CEFTRIAXONE 1 G in IV DEXTROSE 5% 50 ML IV SCH (17:13)
[2017-08-04] MEDS: ENOXAPARIN SODIUM 30 MG/0.3 ML DISP.SYRIN SUBCUT SCH (17:14)
--- NOTE | 2017-08-04 18:12 | NUR ---
Patient has been cooperative with care. No evidence of distress noted at this time. Bed in low position, side rails up x2, bed alarm on. Family at bedside.
--- NOTE | 2017-08-04 19:30 | NUR ---
PT IN ROOM ALERT AWAKE IN NO ACUTE DISTRESS. PT STATES PAIN IN LOWER EXTREMTIES AND DAUGHTER REQUESTING MORPHINE. ROUTINE DIFLUCAN IV ATB ON HAND. CONTINUING OXYGEN THERAPY AT 2L/MIN VIA N/C. CONTINUE TO MONITOR. CALL LIGHT PLACED WITHIN REACH. PT REPOSITIONED.
[2017-08-04] MEDS: ATORVASTATIN 10 MG TABLET PO SCH (20:09)
[2017-08-04] MEDS: DOCUSATE SODIUM 100 MG CAPSULE PO SCH (20:09)
[2017-08-04] MEDS: FLUCONAZOLE 200 MG/NS 100ML IV 100 MG in PREMIXED 1 EACH IV SCH (20:18)
[2017-08-04 20:46] VITALS: BP 143/77
[2017-08-04] MEDS ORDERED: MAGNESIUM HYDROXIDE 30 ML LIQUID UDC PO ONE (21:00)
[2017-08-04] MEDS: QUETIAPINE FUMARATE 25 MG TABLET PO SCH (21:56)
--- NOTE | 2017-08-05 01:00 | NUR ---
PT IN ROOM ASLEEP IN NO ACUTE DISTRESS. CG AT BEDSIDE. NO REACTION TO RECENT IV DIFLUCAN ATB THERAPY. CONTINUE TO MONITOR.
[2017-08-05] MEDS: IV NS 1000 ML 1,000 ML IV PRN ×2 (04:21→21:43)
--- NOTE | 2017-08-05 05:00 | NUR ---
PT IN ROOM ASLEEP IN NO RESP DISTRESS. NO REACTION OVERNIGHT TO RECENT IV ATB THERAPY. MAINTAINING IV HYDRATION NS AT 60ML/HR. DENIES ANY PAIN OR DISCOMFORT. V/S ARE WNL WITH O2 SAT NOTED 94% VIA 2L/MIN N/C. CG AT BEDSIDE. CALL LIGHT PLACED WITHIN REACH. PT REPOSITIONED. CONTINUE TO MONITOR.
[2017-08-05 05:28] VITALS: BP 119/65
[2017-08-05 06:42] LABS: BASOPHILS % (AUTO) 0.6 % (0.0-2.0); EOSINOPHILS # (AUTO) 0.2 K/uL (0.0-0.7); EOSINOPHILS % (AUTO) 4.6 % (0.0-7.0); HEMATOCRIT 33.5 % (31.2-41.9); HEMOGLOBIN 10.9 g/dL (10.9-14.3); LYMPHOCYTES # (AUTO) 1.3 K/uL (20.0-40.0); LYMPHOCYTES % (AUTO) 29.4 % (20.5-51.5); MEAN CORPUSCULAR HEMOGLOBIN 30.6 uug (24.7-32.8); MEAN CORPUSCULAR HGB CONC 33 g/dL (32.3-35.6); MEAN CORPUSCULAR VOLUME 94.4 fL (75.5-95.3); MONOCYTES # (AUTO) 0.4 K/uL (2.0-10.0); MONOCYTES % (AUTO) 8.7 % (0.0-11.0); NEUTROPHILS # (AUTO) 2.6 K/uL (1.8-8.9); NEUTROPHILS % (AUTO) 56.7 % (38.5-71.5); PLATELET COUNT (AUTO) 143 K/uL (179-408); RED BLOOD CELL COUNT(AUTO) 3.55 MIL/uL (3.63-4.92); WHITE BLOOD COUNT (AUTO) 4.5 K/uL (3.8-11.8)
[2017-08-05 06:55] LABS: CARBON DIOXIDE 33 mmol/L (21-32); CHLORIDE 108 mmol/L (98-107); CREATININE 0.6 mg/dL (0.6-1.3); GLUCOSE 90 mg/dL (74-106); POTASSIUM 3.6 mmol/L (3.5-5.1); UREA NITROGEN, BLOOD 10 mg/dL (7-18)
--- NOTE | 2017-08-05 07:10 | NUR ---
RECEIVED REPORT FROM TRANSLATOR NURSE, PATIENT IN BED ASLEEP, NO EVIDENCE OF DISTRESS NOTED AT THIS TIME, BED IN LOW POSITION, SIDE RAILS UP X2, AIR MATTRESS ON. IS AT BEDSIDE. ALL NEEDS MET.
[2017-08-05] MEDS: DULOXETINE 60 MG CAPSULE.DR PO SCH (08:20)
[2017-08-05] MEDS: FAMOTIDINE 20 MG TABLET PO SCH (08:20)
[2017-08-05] MEDS: LACTOBACILLUS RHAMNOSUS GG 1 EACH CAPSULE PO SCH ×2 (08:20→17:40)
[2017-08-05] MEDS: ASPIRIN 81 MG TAB.CHEW PO SCH (08:20)
[2017-08-05] MEDS: GABAPENTIN 100 MG CAPSULE PO SCH (08:20)
[2017-08-05] MEDS: ENOXAPARIN SODIUM 30 MG/0.3 ML DISP.SYRIN SUBCUT SCH (08:21)
[2017-08-05] MEDS: Z GUARD REMEDY PASTE 57 GM TUBE TOP SCH ×2 (08:21→20:04)
[2017-08-05 10:55] VITALS: BP 137/69
--- NOTE | 2017-08-05 13:00 | NUR ---
PATIENT HAD A VERY LARGE HARD STOOL. PATIENT EXPERIENCED BLEEDING THE RECTUM WAS FULLY EXTENDED DURING THE BM.
[2017-08-05] MEDS: MORPHINE SULFATE 4 MG/1 ML DISP.SYRIN IV PRN ×2 (14:30→22:12)
[2017-08-05] MEDS: CEFTRIAXONE 1 G in IV DEXTROSE 5% 50 ML IV SCH (15:00)
[2017-08-05 15:09] VITALS: BP 147/73
--- NOTE | 2017-08-05 18:31 | NUR ---
PATIENT IS CURRENTLY IN BED RESTING, NO EVIDENCE OF DISTRESS NOTED. PATIENT IS FULLY ALERT, AND NOW SPEAKING IN TAMAZIGHT EXPRESSING HER NEEDS AND CONCERNS. BED IN LOW POSITION, SIDE RAILS UP X2, BED ALARM ON. PATIENT IS STILL ON THE AIR MATTRESS AND PRIVATE RAILROAD HAND AT BEDSIDE.
--- NOTE | 2017-08-05 19:30 | NUR ---
PT IN ROOM ALERT AWAKE IN NO ACUTE DISTRESS. CONTINUING ON OXYGEN THERAPY WITH NO C/O SOB. PT MAINTAINING IV FLUIDS WITH NO REACTION TO RECENT IV ATB THERAPY. CONTINUE TO MONITOR FOR PAIN MANAGEMENT. PT REPOSITIONED AND HOB ELEVATED 30 DEGREES. BED ALARM NOTED. CG AT BEDSIDE.
[2017-08-05 20:01] VITALS: BP 136/75
[2017-08-05] MEDS: QUETIAPINE FUMARATE 25 MG TABLET PO SCH (20:03)
[2017-08-05] MEDS: DOCUSATE SODIUM 100 MG CAPSULE PO SCH (20:03)
[2017-08-05] MEDS: FLUCONAZOLE 200 MG/NS 100ML IV 100 MG in PREMIXED 1 EACH IV SCH (20:03)
[2017-08-05] MEDS: ATORVASTATIN 10 MG TABLET PO SCH (20:03)
--- NOTE | 2017-08-05 21:13 | NUR ---
PT'S STATES PT IS C/O 'SPASM LIKE' TO CHEST AND STOMACH AREA. REQUESTING SOMETHING ALSO FOR SLEEP FOR THE PT. DR GARCIA NOTIFIED AND ORDERED VALIUM 2MG PO PRN HS. CONTINUE TO MONITOR. DAUGHTER OF PT IS AWARE.
[2017-08-05] MEDS ORDERED: DIAZEPAM 2 MG TABLET PO PRN (21:15)
[2017-08-05] MEDS ORDERED: LORAZEPAM 2 MG/1 ML VIAL IV PRN (23:45)
--- NOTE | 2017-08-06 02:00 | NUR ---
PT IN ROOM ABLE TO SLEEP WITHOUT DIFFICULTY SINCE ADMINISTRATION OF ATIVAN IV. CONTINUE TO MONITOR. CG AT BEDSIDE.
[2017-08-06 04:00] VITALS: BP 100/54
--- NOTE | 2017-08-06 05:00 | NUR ---
PT IN ROOM ABLE TO SLEEP WITHOUT DIFFICULTY. NO REACTION TO PREVIOUS ATB THERAPY DIFLUCAN. PT REPOSITIONED WITH HOB MAINTAINED 30 DEGREES. DENIES ANY PAIN OR SOB AT THIS TIME. CG AT BEDSIDE. CONTINUE TO MONITOR.
[2017-08-06] MEDS: ONDANSETRON 4 MG/2 ML VIAL IV PRN (06:34)
[2017-08-06 06:58] LABS: BASOPHILS % (AUTO) 1.1 % (0.0-2.0); EOSINOPHILS # (AUTO) 0.3 K/uL (0.0-0.7); EOSINOPHILS % (AUTO) 5.6 % (0.0-7.0); HEMATOCRIT 30.8 % (31.2-41.9); LYMPHOCYTES # (AUTO) 1.7 K/uL (20.0-40.0); LYMPHOCYTES % (AUTO) 37.1 % (20.5-51.5); MEAN CORPUSCULAR HEMOGLOBIN 30.2 uug (24.7-32.8); MEAN CORPUSCULAR HGB CONC 32 g/dL (32.3-35.6); MEAN CORPUSCULAR VOLUME 93.5 fL (75.5-95.3); MONOCYTES # (AUTO) 0.4 K/uL (2.0-10.0); MONOCYTES % (AUTO) 9.4 % (0.0-11.0); NEUTROPHILS # (AUTO) 2.1 K/uL (1.8-8.9); NEUTROPHILS % (AUTO) 46.8 % (38.5-71.5); PLATELET COUNT (AUTO) 136 K/uL (179-408); RED BLOOD CELL COUNT(AUTO) 3.29 MIL/uL (3.63-4.92); WHITE BLOOD COUNT (AUTO) 4.5 K/uL (3.8-11.8)
--- NOTE | 2017-08-06 07:05 | NUR ---
RECEIVED REPORT FROM ASSEMBLY LINE LEADER NURSE, PATIENT IN BED ASLEEP, NO EVIDENCE OF DISTRESS NOTED, BED IN LOW POSITION, SIDE RAILS UP X2. AT BEDSIDE.
[2017-08-06 07:19] LABS: ALANINE AMINOTRANSFERASE 6 U/L (14-59); ALKALINE PHOSPHATASE 62 U/L (50-136); ASPARTATE AMINOTRANSFERASE 15 U/L (15-37); BILIRUBIN,TOTAL 0.1 mg/dL (0.2-1.0); CARBON DIOXIDE 32 mmol/L (21-32); CHLORIDE 108 mmol/L (98-107); CREATININE 0.6 mg/dL (0.6-1.3); GLUCOSE 82 mg/dL (74-106); MAGNESIUM 1.5 mg/dL (1.8-2.4); PHOSPHOROUS 3.5 mg/dL (2.5-4.9); POTASSIUM 3.9 mmol/L (3.5-5.1); TOTAL PROTEIN, SERUM 4.9 g/dL (6.4-8.2); UREA NITROGEN, BLOOD 12 mg/dL (7-18)
[2017-08-06] MEDS: GABAPENTIN 100 MG CAPSULE PO SCH (08:27)
[2017-08-06] MEDS: ASPIRIN 81 MG TAB.CHEW PO SCH (08:27)
[2017-08-06] MEDS: LACTOBACILLUS RHAMNOSUS GG 1 EACH CAPSULE PO SCH (08:27)
[2017-08-06] MEDS: FAMOTIDINE 20 MG TABLET PO SCH (08:27)
[2017-08-06] MEDS: DULOXETINE 60 MG CAPSULE.DR PO SCH (08:27)
[2017-08-06] MEDS: ENOXAPARIN SODIUM 30 MG/0.3 ML DISP.SYRIN SUBCUT SCH (08:28)
[2017-08-06] MEDS: Z GUARD REMEDY PASTE 57 GM TUBE TOP SCH (08:29)
[2017-08-06 11:30] VITALS: BP 105/55
[2017-08-06] MEDS: MAGNESIUM SULFATE/D5W 100 ML IV SCH ×2 (12:28→14:14)
[2017-08-06] MEDS ORDERED: LORAZEPAM 2 MG/1 ML VIAL IV PRN (15:30)
[2017-08-06 16:05] VITALS: BP 110/56
--- NOTE | 2017-08-06 16:55 | NUR ---
PATIENT TOLERATED MEALS, NO EVIDENCE OF DISTRESS NOTED THROUGHOUT THE DAY. PATIENT HAS BEEN SLEEPING ON AND OFF THROUGHOUT THE DAY. ALL BELONGINGS HAVE BEEN INVENTORIED, AND DISCHARGE INSTRUCTIONS GIVEN TO BOTH THE CAREGIVER AND THE DAUGHTERS. AMBULANCE PICKED UP PATIENT TO BE DISCHARGED HOME WITH HOME HEALTH.
== END 2017-08-06 16:55 | disposition home health service (06) | DRG 871 ==
LOC: ER 12:55 → TELE 15:42 → MED 08-03 20:43
PROVIDERS: ADMIT Internal Medicine; ATTEND Internal Medicine
DX: B37.7 Candidal sepsis (principal); E43 Unspecified severe protein-calorie malnutrition; G93.41 Metabolic encephalopathy; L89.154 Pressure ulcer of sacral region, stage 4; J96.11 Chronic respiratory failure with hypoxia; J96.12 Chronic respiratory failure with hypercapnia; R65.20 Severe sepsis without septic shock; L89.224 Pressure ulcer of left hip, stage 4; L89.214 Pressure ulcer of right hip, stage 4; I50.32 Chronic diastolic (congestive) heart failure; R53.2 Functional quadriplegia; D68.59 Other primary thrombophilia; J98.11 Atelectasis; A41.89 Other specified sepsis; N31.9 Neuromuscular dysfunction of bladder, unspecified; B37.49 Other urogenital candidiasis; G35 Multiple sclerosis; Z74.01 Bed confinement status; Z98.2 Presence of cerebrospinal fluid drainage device; Z87.01 Personal history of pneumonia (recurrent); M80.852D Other osteoporosis with current pathological fracture, left femur, subsequent encounter for fracture with routine healing; M80.851D Other osteoporosis with current pathological fracture, right femur, subsequent encounter for fracture with routine healing; Z87.891 Personal history of nicotine dependence; Z79.52 Long term (current) use of systemic steroids; Z79.82 Long term (current) use of aspirin; Z79.899 Other long term (current) drug therapy; F41.9 Anxiety disorder, unspecified; M06.9 Rheumatoid arthritis, unspecified; J84.10 Pulmonary fibrosis, unspecified; J43.9 Emphysema, unspecified; I25.2 Old myocardial infarction; Z68.24 Body mass index [BMI] 24.0-24.9, adult; Z86.011 Personal history of benign neoplasm of the brain; Z90.710 Acquired absence of both cervix and uterus; Z99.81 Dependence on supplemental oxygen; K56.41 Fecal impaction; G89.4 Chronic pain syndrome; I25.10 Atherosclerotic heart disease of native coronary artery without angina pectoris; M19.90 Unspecified osteoarthritis, unspecified site; F03.90 Unspecified dementia, unspecified severity, without behavioral disturbance, psychotic disturbance, mood disturbance, and anxiety
CPT/HCPCS: 36415; 70030-TC; 71045; 83605; 83735; 84100; 85025; 85730; 87040; 87086; 93005; A4663; J0696; J1450; J1650; J2060; J2270; J2405; J3475; J3490; J7030; J7060

== ENCOUNTER 2017-11-03 12:15 | Inpatient (IN) | payer MEDICARE, OTHER ==
[~2017-11-03] VITALS: Ht 152.4 cm; Wt 49.0 kg
[~2017-11-03 12:15] MED LIST changes: -CEPH500C2 PO; +CRAN450T9 PO; +DIAZ5TAB4 PO; -FURO-152 PO; -POTA10TA15 PO; -PRED10TA PO
[2017-11-03] MEDS ORDERED: LUMIGAN 0.01% EYE DROPS EACHEYE (12:41)
[2017-11-03] MEDS ORDERED: INVANZ 1 GM IM (12:41)
[2017-11-03] MEDS ORDERED: METRONIDAZOLE 500 MG TABLET PO (12:41)
[2017-11-03] MEDS ORDERED: CLOPIDOGREL 75 MG TABLET (12:41)
[2017-11-03] MEDS ORDERED: ALBUTEROL SULFATE 2.5 MG/ 0.5 ML NEBU NEB ONE (13:00)
[2017-11-03] MEDS ORDERED: IPRATROPIUM BROMIDE 0.5 MG/2.5 ML NEBU NEB ONE (13:00)
[2017-11-03 13:23] LABS: ABG BASE EXCESS 7.1 mmol/L; ABG HCO3 33.5 mmol/L; ABG PCO2 56.7 mmHg (35.0-45.0); ABG PH 7.389 (7.350-7.450); ABG PO2 70.6 mmHg (75.0-100.0); ABG SITE RIGHT RADIAL; ABG TOTAL HEMOGLOBIN 11.3 G/dL (12.0-16.0); COHb 1.3 % (0.5-1.5); MetHb 0.3 % (0.0-1.5); O2Hb 91.7 % (94.0-97.0); VENT MODE Nasal Cannula
[2017-11-03 13:25] LABS: BASOPHILS % (AUTO) 0.8 % (0.0-2.0); EOSINOPHILS # (AUTO) 0.1 K/uL (0.0-0.7); EOSINOPHILS % (AUTO) 2.1 % (0.0-7.0); HEMOGLOBIN 11.6 g/dL (10.9-14.3); LYMPHOCYTES # (AUTO) 1.1 K/uL (20.0-40.0); LYMPHOCYTES % (AUTO) 21.5 % (20.5-51.5); MEAN CORPUSCULAR HEMOGLOBIN 29.8 uug (24.7-32.8); MEAN CORPUSCULAR HGB CONC 32 g/dL (32.3-35.6); MEAN CORPUSCULAR VOLUME 92.5 fL (75.5-95.3); MONOCYTES # (AUTO) 0.5 K/uL (2.0-10.0); MONOCYTES % (AUTO) 8.8 % (0.0-11.0); NEUTROPHILS # (AUTO) 3.5 K/uL (1.8-8.9); NEUTROPHILS % (AUTO) 66.8 % (38.5-71.5); PLATELET COUNT (AUTO) 211 K/uL (179-408); RED BLOOD CELL COUNT(AUTO) 3.89 MIL/uL (3.63-4.92); WHITE BLOOD COUNT (AUTO) 5.3 K/uL (3.8-11.8)
[2017-11-03] MEDS ORDERED: IPRATROPIUM BROMIDE 0.5 MG/2.5 ML NEBU ONE (13:29)
[2017-11-03] MEDS ORDERED: ALBUTEROL SULFATE 2.5 MG/3 ML NEBU ONE (13:29)
[2017-11-03 13:32] LABS: CARBON DIOXIDE 35 mmol/L (21-32); CHLORIDE 106 mmol/L (98-107); CREATININE 0.7 mg/dL (0.6-1.3); GLUCOSE 91 mg/dL (74-106); UREA NITROGEN, BLOOD 15 mg/dL (7-18)
[2017-11-03 13:45] LABS: ALANINE AMINOTRANSFERASE 13 U/L (14-59); ALKALINE PHOSPHATASE 69 U/L (50-136); ASPARTATE AMINOTRANSFERASE 15 U/L (15-37); BILIRUBIN,TOTAL 0.2 mg/dL (0.2-1.0); CREATINE KINASE, TOTAL 29 U/L (26-192)
[2017-11-03 14:21] LABS: *BILIRUBIN,URIN NEGATIVE (NEGATIVE); *BLOOD, URINE 2+ (NEGATIVE); *CLARITY,URINE CLOUDY (CLEAR); *KETONES,URINE NEGATIVE (NEGATIVE); *PROTEIN,URINE 2+ (NEGATIVE); *UROBILINOGEN,URINE 0.2 E.U./dl (NORMAL); LEUKOCYTE ESTERASE ,URINE 1+ (NEGATIVE); NITRITE, URINE NEGATIVE (NEGATIVE); UGLUCOSE NEGATIVE (NEGATIVE)
[2017-11-03 14:30] LABS: BACTERIA,URINE NONE SEEN /HPF (NONE SEEN); RBC,URINE 80-100 /HPF (0-3); SQUAMOUS EPITHELIAL CELL,UR MANY /HPF (NONE SEEN); WBC,URINE TNTC /HPF (0-3)
[2017-11-03 14:31] LABS: YEAST,URINE MODERATE /HPF (NONE SEEN)
[2017-11-03 18:43] VITALS: BP 135/68
[2017-11-03] MEDS ORDERED: FUROSEMIDE 20 MG/2 ML VIAL IV SCH (19:15)
[2017-11-03] MEDS: FLUCONAZOLE 200 MG/NS 100ML IV 100 MG in PREMIXED 1 EACH IV SCH (20:15)
[2017-11-03] MEDS ORDERED: ACETAMINOPHEN 650 MG SUPP.RECT RC PRN (20:30)
[2017-11-03] MEDS ORDERED: MORPHINE SULFATE 2 MG/1 ML DISP.SYRIN IV PRN (20:30)
[2017-11-03 20:48] VITALS: BP 147/72
[2017-11-04 00:08] VITALS: BP 99/62
[2017-11-04 05:13] VITALS: BP 116/54
[2017-11-04 07:17] LABS: ALANINE AMINOTRANSFERASE 11 U/L (14-59); ALKALINE PHOSPHATASE 70 U/L (50-136); ASPARTATE AMINOTRANSFERASE 27 U/L (15-37); BILIRUBIN,TOTAL 0.2 mg/dL (0.2-1.0); CARBON DIOXIDE 33 mmol/L (21-32); CHLORIDE 101 mmol/L (98-107); CREATININE 0.6 mg/dL (0.6-1.3); GLUCOSE 66 mg/dL (74-106); MAGNESIUM 1.8 mg/dL (1.8-2.4); PHOSPHOROUS 3.8 mg/dL (2.5-4.9); POTASSIUM 4.6 mmol/L (3.5-5.1); TOTAL PROTEIN, SERUM 6.2 g/dL (6.4-8.2); UREA NITROGEN, BLOOD 13 mg/dL (7-18)
[2017-11-04 07:38] LABS: BASOPHILS # (AUTO) 0.1 K/uL (0.0-8.0); EOSINOPHILS # (AUTO) 0.1 K/uL (0.0-0.7); EOSINOPHILS % (AUTO) 1.9 % (0.0-7.0); HEMATOCRIT 37.3 % (31.2-41.9); HEMOGLOBIN 12.4 g/dL (10.9-14.3); LYMPHOCYTES # (AUTO) 1.4 K/uL (20.0-40.0); LYMPHOCYTES % (AUTO) 24.6 % (20.5-51.5); MEAN CORPUSCULAR HEMOGLOBIN 30.8 uug (24.7-32.8); MEAN CORPUSCULAR HGB CONC 33 g/dL (32.3-35.6); MEAN CORPUSCULAR VOLUME 92.6 fL (75.5-95.3); MONOCYTES # (AUTO) 0.4 K/uL (2.0-10.0); MONOCYTES % (AUTO) 7.8 % (0.0-11.0); NEUTROPHILS # (AUTO) 3.6 K/uL (1.8-8.9); NEUTROPHILS % (AUTO) 64.7 % (38.5-71.5); PLATELET COUNT (AUTO) 184 K/uL (179-408); RED BLOOD CELL COUNT(AUTO) 4.03 MIL/uL (3.63-4.92); WHITE BLOOD COUNT (AUTO) 5.5 K/uL (3.8-11.8)
[2017-11-04] MEDS: ASPIRIN 81 MG TAB.CHEW PO SCH (10:45)
[2017-11-04] MEDS: PANTOPRAZOLE SODIUM 40 MG VIAL IV SCH (11:41)
[2017-11-04 11:46] VITALS: BP 128/57
[2017-11-04] MEDS ORDERED: IV D5 1/2 NS 1000 ML 1,000 ML IV PRN (12:45)
[2017-11-04 13:06] VITALS: BP 115/58
[2017-11-04] MEDS: MORPHINE SULFATE 4 MG/1 ML DISP.SYRIN IV PRN (13:13)
[2017-11-04 15:44] VITALS: BP 113/51
[2017-11-04] MEDS: DULOXETINE 60 MG CAPSULE.DR PO SCH (17:47)
[2017-11-04] MEDS: ACETAMINOPHEN 325 MG TABLET PO PRN (17:49)
[2017-11-04] MEDS: IPRATROPIUM BROMIDE 0.5 MG/2.5 ML NEBU NEB PRN (19:12)
[2017-11-04] MEDS: ALBUTEROL SULFATE 2.5 MG/3 ML NEBU NEB PRN (19:12)
[2017-11-04] MEDS: FLUCONAZOLE 200 MG/NS 100ML IV 100 MG in PREMIXED 1 EACH IV SCH (19:15)
[2017-11-04 20:36] VITALS: BP 96/59
[2017-11-04] MEDS: DOCUSATE SODIUM 100 MG CAPSULE PO SCH (21:19)
[2017-11-04] MEDS ORDERED: DIAZEPAM 5 MG TABLET PO PRN (22:30)
[2017-11-05] VITALS (7 sets, daily range): BP systolic 102–129; BP diastolic 51–67
[2017-11-05] MEDS: MORPHINE SULFATE 4 MG/1 ML DISP.SYRIN IV PRN ×2 (00:19→03:54)
[2017-11-05] MEDS: ACETAMINOPHEN 325 MG TABLET PO PRN ×2 (02:55→13:49)
[2017-11-05] MEDS: DULOXETINE 60 MG CAPSULE.DR PO SCH (08:18)
[2017-11-05] MEDS: PANTOPRAZOLE SODIUM 40 MG VIAL IV SCH (08:18)
[2017-11-05] MEDS: FUROSEMIDE 20 MG TABLET PO SCH (08:18)
[2017-11-05] MEDS: ASPIRIN 81 MG TAB.CHEW PO SCH (08:19)
[2017-11-05] MEDS: FLUCONAZOLE 200 MG/NS 100ML IV 100 MG in PREMIXED 1 EACH IV SCH (18:35)
[2017-11-05] MEDS ORDERED: HYDROCODONE/APAP 5-325MG TABLET PO PRN (18:45)
[2017-11-05] MEDS: DOCUSATE SODIUM 100 MG CAPSULE PO SCH (20:44)
[2017-11-05] MEDS: QUETIAPINE FUMARATE 25 MG TABLET PO SCH (21:00)
[2017-11-06] VITALS (11 sets, daily range): BP systolic 90–123; BP diastolic 51–69
[2017-11-06] MEDS ORDERED: IV NORMAL SALINE 250 ML BAG IV ONE (00:15)
[2017-11-06] MEDS: PANTOPRAZOLE SODIUM 40 MG TABLET.DR PO SCH (06:16)
[2017-11-06 08:17] LABS: BASOPHILS # (AUTO) 0.1 K/uL (0.0-8.0); EOSINOPHILS # (AUTO) 0.1 K/uL (0.0-0.7); EOSINOPHILS % (AUTO) 2.1 % (0.0-7.0); HEMATOCRIT 37.5 % (31.2-41.9); HEMOGLOBIN 12.2 g/dL (10.9-14.3); LYMPHOCYTES # (AUTO) 1.6 K/uL (20.0-40.0); LYMPHOCYTES % (AUTO) 25.4 % (20.5-51.5); MEAN CORPUSCULAR HEMOGLOBIN 30.3 uug (24.7-32.8); MEAN CORPUSCULAR HGB CONC 32 g/dL (32.3-35.6); MEAN CORPUSCULAR VOLUME 93.2 fL (75.5-95.3); MONOCYTES # (AUTO) 0.7 K/uL (2.0-10.0); NEUTROPHILS # (AUTO) 3.9 K/uL (1.8-8.9); NEUTROPHILS % (AUTO) 60.5 % (38.5-71.5); RED BLOOD CELL COUNT(AUTO) 4.02 MIL/uL (3.63-4.92); WHITE BLOOD COUNT (AUTO) 6.5 K/uL (3.8-11.8)
[2017-11-06 08:24] LABS: PLATELET COUNT (AUTO) 286 K/uL (179-408)
[2017-11-06 08:36] LABS: BAND % (MANUAL) 1 % (0-10); EOSINOPHILS % (MANUAL) 3 % (0-8); LYMPHOCYTES % (MANUAL) 26 % (20-40); MONOCYTES % (MANUAL) 10 % (2-10); MYELOCYTES % 1 % (0-0); NEUTROPHILS % (MANUAL) 59 % (42-75)
[2017-11-06 08:43] LABS: CARBON DIOXIDE 34 mmol/L (21-32); CHLORIDE 102 mmol/L (98-107); CREATININE 0.6 mg/dL (0.6-1.3); GLUCOSE 106 mg/dL (74-106); POTASSIUM 4.7 mmol/L (3.5-5.1); UREA NITROGEN, BLOOD 19 mg/dL (7-18)
[2017-11-06] MEDS: ASPIRIN 81 MG TAB.CHEW PO SCH (09:00)
[2017-11-06] MEDS: DULOXETINE 60 MG CAPSULE.DR PO SCH (09:31)
[2017-11-06] MEDS: FUROSEMIDE 20 MG TABLET PO SCH (09:31)
[2017-11-06 13:05] LABS: *BILIRUBIN,URIN NEGATIVE (NEGATIVE); *BLOOD, URINE 2+ (NEGATIVE); *CLARITY,URINE CLOUDY (CLEAR); *COLOR,URINE LIGHT YELLOW (YELLOW); *KETONES,URINE NEGATIVE (NEGATIVE); *PROTEIN,URINE NEGATIVE (NEGATIVE); *UROBILINOGEN,URINE 0.2 E.U./dl (NORMAL); LEUKOCYTE ESTERASE ,URINE 3+ (NEGATIVE); NITRITE, URINE NEGATIVE (NEGATIVE); UGLUCOSE NEGATIVE (NEGATIVE)
[2017-11-06 13:10] LABS: BACTERIA,URINE FEW /HPF (NONE SEEN); SQUAMOUS EPITHELIAL CELL,UR FEW /HPF (NONE SEEN); WBC,URINE TNTC /HPF (0-3)
[2017-11-06] MEDS: ALBUTEROL SULFATE 2.5 MG/3 ML NEBU NEB PRN (15:04)
[2017-11-06] MEDS: IPRATROPIUM BROMIDE 0.5 MG/2.5 ML NEBU NEB PRN (15:04)
[2017-11-06] MEDS: FLUCONAZOLE 200 MG/NS 100ML IV 100 MG in PREMIXED 1 EACH IV SCH (18:44)
[2017-11-06] MEDS: DOCUSATE SODIUM 100 MG CAPSULE PO SCH (21:00)
[2017-11-06] MEDS: QUETIAPINE FUMARATE 25 MG TABLET PO SCH (21:00)
[2017-11-06] MEDS: LINEZOLID IV 600 MG in PREMIXED 1 EACH IV SCH (21:21)
[2017-11-06] MEDS: ACETAMINOPHEN 325 MG TABLET PO PRN (23:36)
[2017-11-07 04:00] VITALS: BP 95/50
[2017-11-07] MEDS: ACETAMINOPHEN 325 MG TABLET PO PRN ×2 (05:15→20:46)
[2017-11-07] MEDS: PANTOPRAZOLE SODIUM 40 MG TABLET.DR PO SCH (06:07)
[2017-11-07 07:03] LABS: ALANINE AMINOTRANSFERASE 12 U/L (14-59); ALKALINE PHOSPHATASE 64 U/L (50-136); ASPARTATE AMINOTRANSFERASE 12 U/L (15-37); BILIRUBIN,TOTAL 0.2 mg/dL (0.2-1.0); CARBON DIOXIDE 36 mmol/L (21-32); CHLORIDE 99 mmol/L (98-107); CREATININE 0.9 mg/dL (0.6-1.3); GLUCOSE 154 mg/dL (74-106); MAGNESIUM 1.9 mg/dL (1.8-2.4); PHOSPHOROUS 3.1 mg/dL (2.5-4.9); TOTAL PROTEIN, SERUM 5.9 g/dL (6.4-8.2); UREA NITROGEN, BLOOD 26 mg/dL (7-18)
[2017-11-07 07:18] LABS: BASOPHILS % (AUTO) 0.8 % (0.0-2.0); EOSINOPHILS # (AUTO) 0.1 K/uL (0.0-0.7); HEMATOCRIT 33.9 % (31.2-41.9); HEMOGLOBIN 11.1 g/dL (10.9-14.3); LYMPHOCYTES # (AUTO) 1.5 K/uL (20.0-40.0); LYMPHOCYTES % (AUTO) 23.9 % (20.5-51.5); MEAN CORPUSCULAR HEMOGLOBIN 30.2 uug (24.7-32.8); MEAN CORPUSCULAR HGB CONC 33 g/dL (32.3-35.6); MEAN CORPUSCULAR VOLUME 92.2 fL (75.5-95.3); MONOCYTES # (AUTO) 0.7 K/uL (2.0-10.0); MONOCYTES % (AUTO) 10.4 % (0.0-11.0); NEUTROPHILS % (AUTO) 62.9 % (38.5-71.5); PLATELET COUNT (AUTO) 288 K/uL (179-408); RED BLOOD CELL COUNT(AUTO) 3.68 MIL/uL (3.63-4.92); WHITE BLOOD COUNT (AUTO) 6.3 K/uL (3.8-11.8)
[2017-11-07] MEDS: ASPIRIN 81 MG TAB.CHEW PO SCH (08:35)
[2017-11-07] MEDS: LINEZOLID IV 600 MG in PREMIXED 1 EACH IV SCH ×2 (08:35→22:04)
[2017-11-07] MEDS: FUROSEMIDE 20 MG TABLET PO SCH (08:35)
[2017-11-07 12:00] VITALS: BP 102/45
[2017-11-07 15:58] VITALS: BP 98/46
[2017-11-07] MEDS: ALBUTEROL SULFATE 2.5 MG/3 ML NEBU NEB PRN (19:44)
[2017-11-07] MEDS: IPRATROPIUM BROMIDE 0.5 MG/2.5 ML NEBU NEB PRN (19:44)
[2017-11-07 19:56] VITALS: BP 105/57
[2017-11-07] MEDS: DOCUSATE SODIUM 100 MG CAPSULE PO SCH (20:46)
[2017-11-07] MEDS: QUETIAPINE FUMARATE 25 MG TABLET PO SCH (20:47)
[2017-11-07] MEDS: FLUCONAZOLE 200 MG/NS 100ML IV 100 MG in PREMIXED 1 EACH IV SCH (21:55)
[2017-11-08 00:32] VITALS: BP 103/57
[2017-11-08 04:00] VITALS: BP 109/52
[2017-11-08] MEDS: PANTOPRAZOLE SODIUM 40 MG TABLET.DR PO SCH (06:09)
[2017-11-08 07:02] LABS: CARBON DIOXIDE 33 mmol/L (21-32); CHLORIDE 102 mmol/L (98-107); CREATININE 0.8 mg/dL (0.6-1.3); GLUCOSE 114 mg/dL (74-106); MAGNESIUM 1.9 mg/dL (1.8-2.4); PHOSPHOROUS 3.1 mg/dL (2.5-4.9); POTASSIUM 4.2 mmol/L (3.5-5.1); UREA NITROGEN, BLOOD 23 mg/dL (7-18)
[2017-11-08 07:30] LABS: BASOPHILS % (AUTO) 0.7 % (0.0-2.0); EOSINOPHILS # (AUTO) 0.1 K/uL (0.0-0.7); EOSINOPHILS % (AUTO) 1.7 % (0.0-7.0); HEMATOCRIT 33.6 % (31.2-41.9); HEMOGLOBIN 10.9 g/dL (10.9-14.3); LYMPHOCYTES # (AUTO) 1.4 K/uL (20.0-40.0); LYMPHOCYTES % (AUTO) 20.9 % (20.5-51.5); MEAN CORPUSCULAR HEMOGLOBIN 29.8 uug (24.7-32.8); MEAN CORPUSCULAR HGB CONC 33 g/dL (32.3-35.6); MEAN CORPUSCULAR VOLUME 91.7 fL (75.5-95.3); MONOCYTES # (AUTO) 0.5 K/uL (2.0-10.0); MONOCYTES % (AUTO) 8.3 % (0.0-11.0); NEUTROPHILS # (AUTO) 4.4 K/uL (1.8-8.9); NEUTROPHILS % (AUTO) 68.4 % (38.5-71.5); PLATELET COUNT (AUTO) 244 K/uL (179-408); RED BLOOD CELL COUNT(AUTO) 3.66 MIL/uL (3.63-4.92); WHITE BLOOD COUNT (AUTO) 6.5 K/uL (3.8-11.8)
[2017-11-08] MEDS: LINEZOLID IV 600 MG in PREMIXED 1 EACH IV SCH (08:19)
[2017-11-08] MEDS: ASPIRIN 81 MG TAB.CHEW PO SCH (08:27)
[2017-11-08] MEDS ORDERED: LINE600T7 PO (11:11)
[2017-11-08] MEDS ORDERED: FLUC100T8 PO (11:11)
[2017-11-08 11:46] VITALS: BP 94/51
[2017-11-08 16:18] VITALS: BP 103/68
[2017-11-08 17:23] VITALS: BP 120/66
[2017-11-08 17:40] VITALS: BP 120/66
== END 2017-11-08 17:39 | disposition home or self-care (01) | DRG 871 ==
LOC: ER 12:16 → TELE 17:58 → MED 11-04 11:29
PROVIDERS: ADMIT Internal Medicine; ATTEND Internal Medicine
DX: A41.9 Sepsis, unspecified organism (principal); J96.21 Acute and chronic respiratory failure with hypoxia; E43 Unspecified severe protein-calorie malnutrition; G92 Toxic encephalopathy; R53.2 Functional quadriplegia; G35 Multiple sclerosis; Z99.81 Dependence on supplemental oxygen; J84.10 Pulmonary fibrosis, unspecified; F03.90 Unspecified dementia, unspecified severity, without behavioral disturbance, psychotic disturbance, mood disturbance, and anxiety; B37.49 Other urogenital candidiasis; I25.10 Atherosclerotic heart disease of native coronary artery without angina pectoris; J96.22 Acute and chronic respiratory failure with hypercapnia; N39.0 Urinary tract infection, site not specified; I25.2 Old myocardial infarction; R65.20 Severe sepsis without septic shock; B95.2 Enterococcus as the cause of diseases classified elsewhere; Z16.21 Resistance to vancomycin; J43.9 Emphysema, unspecified; Z87.891 Personal history of nicotine dependence; M06.9 Rheumatoid arthritis, unspecified; G89.4 Chronic pain syndrome; Z98.2 Presence of cerebrospinal fluid drainage device; M81.0 Age-related osteoporosis without current pathological fracture; Z87.440 Personal history of urinary (tract) infections; Z90.710 Acquired absence of both cervix and uterus; Z79.82 Long term (current) use of aspirin; Z79.899 Other long term (current) drug therapy; Z86.011 Personal history of benign neoplasm of the brain; G47.00 Insomnia, unspecified; F41.9 Anxiety disorder, unspecified; F32.9 Major depressive disorder, single episode, unspecified; K59.00 Constipation, unspecified; Z87.311 Personal history of (healed) other pathological fracture; Z68.21 Body mass index [BMI] 21.0-21.9, adult; Z98.41 Cataract extraction status, right eye; Z96.1 Presence of intraocular lens
CPT/HCPCS: 36415; 36600; 70030-TC; 71045; 83735; 84100; 85025; 85610; 87040; 87077; 87086; 93005; 93307; 94640; A4663; C1758; C9113; J1450; J1940; J2020; J2270; J3490; J3590; J7040; J7050

== ENCOUNTER 2017-12-29 23:01 | Inpatient (IN) | payer MEDICARE, OTHER ==
[~2017-12-29] VITALS: Ht 152.4 cm; Wt 37.7 kg
[~2017-12-29 23:01] MED LIST changes: +CLOPIDOGREL 75 MG TABLET PO; -CRAN450T9 PO; +FLUC100T8 PO; -GABA100C PO; -LACT1CAP57 PO; +LINE600T7 PO; +LUMIGAN 0.01% EYE DROPS EACHEYE; -QUET50TA PO
--- NOTE | 2017-12-29 23:33 | NUR ---
Dr Mosley into eval patient
[2017-12-29] MEDS ORDERED: GABA-532 PO (23:50)
[2017-12-29] MEDS ORDERED: HYDR-3326 PO (23:50)
[2017-12-29] MEDS ORDERED: ATOR10TA PO (23:50)
[2017-12-29] MEDS ORDERED: ACET-2154 PO (23:51)
[2017-12-29 23:55] LABS: BASOPHILS % (AUTO) 0.6 % (0.0-2.0); EOSINOPHILS # (AUTO) 0.1 K/uL (0.0-0.7); EOSINOPHILS % (AUTO) 1.2 % (0.0-7.0); HEMATOCRIT 41.3 % (31.2-41.9); HEMOGLOBIN 13.2 g/dL (10.9-14.3); LYMPHOCYTES # (AUTO) 1.3 K/uL (20.0-40.0); LYMPHOCYTES % (AUTO) 20.8 % (20.5-51.5); MEAN CORPUSCULAR HEMOGLOBIN 29.3 uug (24.7-32.8); MEAN CORPUSCULAR HGB CONC 32 g/dL (32.3-35.6); MEAN CORPUSCULAR VOLUME 91.9 fL (75.5-95.3); MONOCYTES # (AUTO) 0.4 K/uL (2.0-10.0); MONOCYTES % (AUTO) 7.2 % (0.0-11.0); NEUTROPHILS # (AUTO) 4.3 K/uL (1.8-8.9); NEUTROPHILS % (AUTO) 70.2 % (38.5-71.5); PLATELET COUNT (AUTO) 165 K/uL (179-408); RED BLOOD CELL COUNT(AUTO) 4.49 MIL/uL (3.63-4.92); WHITE BLOOD COUNT (AUTO) 6.1 K/uL (3.8-11.8)
[2017-12-30 00:04] LABS: CARBON DIOXIDE 27 mmol/L (21-32); CHLORIDE 107 mmol/L (98-107); CREATININE 0.7 mg/dL (0.6-1.3); GLUCOSE 109 mg/dL (74-106); POTASSIUM 3.9 mmol/L (3.5-5.1); UREA NITROGEN, BLOOD 15 mg/dL (7-18)
[2017-12-30 00:09] LABS: *BILIRUBIN,URIN NEGATIVE (NEGATIVE); *BLOOD, URINE 2+ (NEGATIVE); *CLARITY,URINE SLIGHTLY CLOUDY (CLEAR); *COLOR,URINE YELLOW (YELLOW); *KETONES,URINE 1+ (NEGATIVE); *PROTEIN,URINE TRACE (NEGATIVE); *UROBILINOGEN,URINE 0.2 E.U./dl (NORMAL); LEUKOCYTE ESTERASE ,URINE 2+ (NEGATIVE); NITRITE, URINE NEGATIVE (NEGATIVE); UGLUCOSE NEGATIVE (NEGATIVE)
[2017-12-30 00:14] LABS: BACTERIA,URINE FEW /HPF (NONE SEEN); SQUAMOUS EPITHELIAL CELL,UR MODERATE /HPF (NONE SEEN); WBC,URINE 20-50 /HPF (0-3)
[2017-12-30 00:17] LABS: ALANINE AMINOTRANSFERASE 15 U/L (14-59); ALKALINE PHOSPHATASE 66 U/L (50-136); ASPARTATE AMINOTRANSFERASE 11 U/L (15-37); BILIRUBIN,DIRECT 0.1 mg/dL (0.0-0.2); BILIRUBIN,TOTAL 0.3 mg/dL (0.2-1.0); TOTAL PROTEIN, SERUM 6.7 g/dL (6.4-8.2)
[2017-12-30] MEDS ORDERED: PIPERACILLIN SODIUM/TAZOBACTAM 3.375 G in IV DEXTROSE 5% 50 ML IV ONE (00:30)
[2017-12-30] MEDS ORDERED: PIPERACILLIN/TAZOBACTAM/D5W 50 ML IV ONE (00:44)
[2017-12-30] MEDS ORDERED: diphenhydrAMINE 50 MG/1 ML VIAL ONE (00:44)
[2017-12-30] MEDS ORDERED: diphenhydrAMINE 50 MG/1 ML VIAL IV ONE (00:45)
[2017-12-30] MEDS ORDERED: ALBUTEROL SULFATE 2.5 MG/3 ML NEBU NEB PRN (02:00)
[2017-12-30] MEDS ORDERED: Z GUARD REMEDY PASTE 57 GM TUBE TOP PRN (02:00)
[2017-12-30] MEDS ORDERED: MAGNESIUM HYDROXIDE 30 ML LIQUID UDC PO PRN (02:00)
--- NOTE | 2017-12-30 02:00 | NUR ---
Patient diapher wet with urine. Daughter refused to have diapher change at this time stating "I want my mom to sleep for now."
[2017-12-30] MEDS ORDERED: CEPHALEXIN MONOHYDRATE 500 MG CAPSULE ONE (02:12)
[2017-12-30] MEDS ORDERED: CEPHALEXIN MONOHYDRATE 250 MG CAPSULE ONE (02:13)
[2017-12-30] MEDS ORDERED: CEPHALEXIN MONOHYDRATE 250 MG CAPSULE PO ONE (02:15)
--- NOTE | 2017-12-30 03:27 | NUR ---
Received pt to the [facility] floor with daughter at bedside. Daughter refusing for mom to get vital signs taken. Daughter did not want Pt to transfer off [facility] to hospital bed in fear that pt will wake up. ER nurse and I transferred pt to hospital bed. Pt is still asleep. No s/s distress noted. Daughter does not want me to assess patient. I told daughter I will try not to wake up patient, but i need to visually inspect and assess patient. Lung sounds diminished, bowel sounds active x4. Per daughter, pt has an ulcer on the right hip. I was unable to visualize it due to patient sleeping on her right side. Will reassess later in the morning once patient is awake. BLE 1+ edema noted. On 02 at 2L via NC. Daughter refusing for chux to be placed under patient and refusing diaper change until patient is awake. Charge nurse notified. Addendum: 12/30/17 at 0340 by FERNY MONSON RN Per daughter, she is requesting an air mattress for the patient and states she has a pureed diet. She is also stating they wish to refuse any wound care. Also states she wants all AM meds to be held until MD review it because she thinks Zyvox is contraindicted with patient's other medications. Will inform Am nurse.
--- NOTE | 2017-12-30 03:33 | NUR ---
Transfered to 2nd floor via tiffany
--- NOTE | 2017-12-30 03:38 | NUR ---
is at bedside and will spend the night. Awaiting for IV antibiotics for patient.
[2017-12-30] MEDS ORDERED: PIPERACILLIN SODIUM/TAZO 3.375 GM VIAL ONE (03:55)
--- NOTE | 2017-12-30 03:55 | NUR ---
Received call from pharmacy regarding drug interaction between Zyvox and Cymbalta. I called dr Farshad Lomax and he is aware and is OK for patient to take both medications since she is actually taking both at home. I called back the pharmacy to relay the message.
[2017-12-30] MEDS: IV NS 1000 ML 1,000 ML IV PRN ×2 (04:14→16:42)
[2017-12-30] MEDS: ENOXAPARIN SODIUM 40 MG/0.4 ML DISP.SYRIN SQ SCH ×2 (04:59→20:20)
--- NOTE | 2017-12-30 05:48 | NUR ---
IV site on left forearm was infiltrated. I was unable to run the IVF. Reinserted a 22g to the right wrist. IVF infusing at this time.
[2017-12-30] MEDS ORDERED: PIPERACILLIN SODIUM/TAZOBACTAM 3.375 G in IV DEXTROSE 5% 50 ML IV SCH (06:00)
[2017-12-30] MEDS ORDERED: LINEZOLID IV 600 MG in PREMIXED 1 EACH IV ONE (06:00)
--- NOTE | 2017-12-30 06:39 | NUR ---
Per family, to administer Keflex 750mg when patient wakes up. Will endorse to AM nurse. Zyvox IVF still infusing at this time. Will endorse to AM nurse to infuse the Zosyn IVP when Zyvox is done infusing.
[2017-12-30] MEDS: DULOXETINE 60 MG CAPSULE.DR PO SCH (08:17)
[2017-12-30] MEDS: ASPIRIN 81 MG TAB.CHEW PO SCH (08:17)
--- NOTE | 2017-12-30 08:19 | NUR ---
patient'd in room and refused all po medicines except IV antibiotic only. Addendum: 12/30/17 at 0819 by DB CURRY RN Amended: Links added.
[2017-12-30] MEDS: PIPERACILLIN SODIUM/TAZOBACTAM 3.375 G in IV DEXTROSE 5% 50 ML IV SCH ×3 (08:23→22:08)
--- NOTE | 2017-12-30 08:30 | NUR ---
seen By Keely ROOT for Epic Addendum: 12/30/17 at 1453 by DB CURRY RN Amended: Monica added. Addendum: 12/30/17 at 1455 by DB CURRY RN Amended: Monica lee.
[2017-12-30] MEDS ORDERED: DIAZEPAM 5 MG TABLET PO SCH (09:00)
--- NOTE | 2017-12-30 09:46 | NUR ---
Patient's refused to wake patient up to be turned and RN to do full assessment. Addendum: 12/30/17 at 0947 by DB CURRY RN Amended: Links added.
[2017-12-30] MEDS: ACETAMINOPHEN 325 MG TABLET PO PRN ×2 (10:21→17:23)
[2017-12-30] MEDS: ONDANSETRON 4 MG/2 ML VIAL IV PRN (10:21)
--- NOTE | 2017-12-30 10:34 | NUR ---
c/o nausea and generalized body discomfort. medicated with zofran and tylenol. bp 168/53/ will talk to TRACK SURFACING MACHINE OPERATOR for an hypertensive medications Addendum: 12/30/17 at 1034 by DB CURRY RN Amended: Links added.
[2017-12-30 11:26] VITALS: BP 158/84
--- NOTE | 2017-12-30 11:35 | NUR ---
seen by Jody ROOT for ID. orders received. Nancy dc/d. will start on Macrobid Addendum: 12/30/17 at 1455 by DB CURRY RN Amended: Links added.
[2017-12-30] MEDS: CLOPIDOGREL 75 MG TABLET PO SCH (12:00)
--- NOTE | 2017-12-30 13:24 | NUR ---
family refused plavix Addendum: 12/30/17 at 1325 by DB CURRY RN Amended: Links added.
[2017-12-30] MEDS ORDERED: HYDR-3326 PO (14:06)
[2017-12-30] MEDS: NITROFURANTOIN/NITROFURAN MAC 100 MG CAPSULE PO SCH ×2 (14:59→20:19)
[2017-12-30] MEDS ORDERED: hydrALAZINE HCL 25 MG TABLET PO PRN (15:15)
--- NOTE | 2017-12-30 15:30 | NUR ---
seen by dr Chou. ANNE aware of high bp this am. orders received. Addendum: 12/30/17 at 1530 by DB CURRY RN Amended: Links added.
[2017-12-30 15:38] VITALS: BP 141/69
[2017-12-30] MEDS: LISINOPRIL 5 MG TABLET PO SCH (16:42)
[2017-12-30] MEDS: HYDROCODONE/APAP 5-325MG TABLET PO PRN ×2 (17:31→23:13)
--- NOTE | 2017-12-30 17:37 | NUR ---
medicated for abdominal discomfort Addendum: 12/30/17 at 1737 by DB CURRY RN Amended: Links added.
--- NOTE | 2017-12-30 19:10 | NUR ---
received pt asleep on bed, no signs of respiratory distress noted, IV site on R wrist, patent and intact. pt on O2 2L via NC, with O2 sat of 95%. family at bedside. safety measures initiated. call mckeon within reach.
[2017-12-30 19:52] VITALS: BP 151/67
[2017-12-30] MEDS: ATORVASTATIN 10 MG TABLET PO SCH (20:19)
[2017-12-30 20:37] VITALS: BP 132/70
[2017-12-30] MEDS ORDERED: LINEZOLID IV 600 MG in PREMIXED 1 EACH IV SCH ×4 (21:00)
[2017-12-31 04:00] VITALS: BP 117/68
[2017-12-31] MEDS: PIPERACILLIN SODIUM/TAZOBACTAM 3.375 G in IV DEXTROSE 5% 50 ML IV SCH ×2 (05:30→14:01)
[2017-12-31 05:57] LABS: BASOPHILS % (AUTO) 0.9 % (0.0-2.0); EOSINOPHILS # (AUTO) 0.1 K/uL (0.0-0.7); EOSINOPHILS % (AUTO) 2.9 % (0.0-7.0); HEMATOCRIT 37.9 % (31.2-41.9); LYMPHOCYTES # (AUTO) 1.1 K/uL (20.0-40.0); LYMPHOCYTES % (AUTO) 23.7 % (20.5-51.5); MEAN CORPUSCULAR HEMOGLOBIN 29.3 uug (24.7-32.8); MEAN CORPUSCULAR HGB CONC 32 g/dL (32.3-35.6); MONOCYTES # (AUTO) 0.4 K/uL (2.0-10.0); MONOCYTES % (AUTO) 8.8 % (0.0-11.0); NEUTROPHILS % (AUTO) 63.7 % (38.5-71.5); PLATELET COUNT (AUTO) 152 K/uL (179-408); RED BLOOD CELL COUNT(AUTO) 4.08 MIL/uL (3.63-4.92); WHITE BLOOD COUNT (AUTO) 4.7 K/uL (3.8-11.8)
[2017-12-31 06:07] LABS: CARBON DIOXIDE 27 mmol/L (21-32); CHLORIDE 111 mmol/L (98-107); CHOLESTEROL 148 mg/dL (<200); CREATININE 0.6 mg/dL (0.6-1.3); GLUCOSE 91 mg/dL (74-106); HDL CHOLESTEROL 46 mg/dL (40-60); MAGNESIUM 1.5 mg/dL (1.8-2.4); PHOSPHOROUS 3.5 mg/dL (2.5-4.9); POTASSIUM 3.1 mmol/L (3.5-5.1); TRIGLYCERIDES 120 MG/DL (30-150); UREA NITROGEN, BLOOD 11 mg/dL (7-18)
[2017-12-31 06:17] LABS: THYROID STIMULATING HORMONE 0.818 mIU/mL (0.358-3.740)
--- NOTE | 2017-12-31 06:26 | NUR ---
pt resting comfortably in bed, no signs of respiratory distress noted. IVF on r wrist, patent and intact. wound care provided. spouse at bedside. all needs met and attended. safety measures maintained, call mckeon within reach
--- NOTE | 2017-12-31 07:20 | NUR ---
Received pt sleeping in bed on her right side. IV hydration running. Noted sleeping in bed. No immediate s/s of SOB, pain, distress or discomfort.
[2017-12-31] MEDS: LISINOPRIL 5 MG TABLET PO SCH (09:00)
[2017-12-31] MEDS: ASPIRIN 81 MG TAB.CHEW PO SCH (09:00)
[2017-12-31] MEDS: DULOXETINE 60 MG CAPSULE.DR PO SCH (09:00)
--- NOTE | 2017-12-31 09:00 | NUR ---
Tried giveing the pt her medications and caregiver stated to come back later and let the pt rest
[2017-12-31] MEDS ORDERED: MAGNESIUM OXIDE 400 MG TABLET PO ONE (09:15)
[2017-12-31] MEDS ORDERED: POTASSIUM CHLORIDE 20 MEQ TAB.PRT.SR PO ONE (09:15)
[2017-12-31] MEDS: NITROFURANTOIN/NITROFURAN MAC 100 MG CAPSULE PO SCH ×2 (09:58→20:10)
[2017-12-31] MEDS: CLOPIDOGREL 75 MG TABLET PO SCH (09:58)
[2017-12-31] MEDS: HYDROCODONE/APAP 5-325MG TABLET PO PRN ×3 (10:16→21:28)
--- NOTE | 2017-12-31 10:24 | NUR ---
Received a call from the daughter stating NOT to give her mom aspirin, Cymbalta and Lisinopril. Informed her about the pt.'s BP being 183/80. Daughter stated to hold the BP med and give her mother a [place].
--- NOTE | 2017-12-31 11:00 | NUR ---
During body assessment, the pt informed me not to touch her. I reply that I was doing as assessment on her extremities to check for edema
[2017-12-31 11:59] VITALS: BP 109/54
[2017-12-31] MEDS: ONDANSETRON 4 MG/2 ML VIAL IV PRN ×2 (13:31→20:10)
--- NOTE | 2017-12-31 14:27 | NUR ---
Daughter stated very specific that the pt should not have aspirin, Cymbalta, and Lisinopril. Daughter stated not to give BP medications and instead give Ramona. Daughter was upset that there was no wound dressing on the left hip and wanted to know who to blame. Daughter states no one should do wound dressing on her mother except her. Wound dressing to be changed by daughter only on and Th. Daughter stated only the outside gauze should be changed if soil. NEGOTIATOR Stephanie aware of these requests from the daughter. Informed the daughter there were no previous endorsements on what medications to give and not to give. Informed the daughter that there was no endorsement to me not to touch or start a dressing. Informed the daughter that wound care are provided by me when the patient is going to be diaper change, as a nursing cluster care.
--- NOTE | 2017-12-31 15:39 | NUR ---
Per RN BIRTHING, she ordered Gabapentin and will hold Cymbalta and resume in five days, orders for nurse not to do wound care and ok for family to do wound care. Per Dr Tirado, ABDELRAHMAN Aspirin, and HTN medications for now. will adjust tomorrow. Daughter is aware and informed about ALL orders
[2017-12-31 16:06] VITALS: BP 114/56
[2017-12-31] MEDS: GABAPENTIN 100 MG CAPSULE PO SCH (17:12)
[2017-12-31 17:21] VITALS: BP 135/67
--- NOTE | 2017-12-31 17:23 | NUR ---
Daughter request that pt.'s BP to be take before [place] is given. BP 135/67 HR 99 Addendum: 12/31/17 at 1728 by QUAN ESPINAL RN Caregiver by bedside and feeding the pt.. Gabapentin explained to pt before giving it to her and informed her that it was requested by the daughter and HYDRAULIC AND PLUMBING INSTALLER placed the order
--- NOTE | 2017-12-31 19:20 | NUR ---
Pt has had caregivers during the day and noted the a second daughter in the room. No immediate s/s of SOB, pain, distress or discomfort at this time. ALL request from the first daughter this morning were relayed to TIME STAMP ASSEMBLER, cataloging assistant and carried out.
--- NOTE | 2017-12-31 20:00 | NUR ---
PATIENT IN BED AAOX2 WITH CONFUSION AND FORGETFULNESS ABLE TO STATE BASIC NEEDS, NO S/S OF PAIN OR DISTRESS ON ASSESSMENT. NO FEVER AT THIS TIME. SAFETY MEASURES & ASPIRATION PRECAUTIONS IN PLACE. CALL LIGHT LEFT WITHIN PATIENTS REACH
[2017-12-31 20:09] VITALS: BP 150/71
[2017-12-31] MEDS: ATORVASTATIN 10 MG TABLET PO SCH (20:10)
[2017-12-31] MEDS: ENOXAPARIN SODIUM 40 MG/0.4 ML DISP.SYRIN SQ SCH (20:12)
[2018-01-01] VITALS (7 sets, daily range): BP systolic 99–155; BP diastolic 51–93
--- NOTE | 2018-01-01 06:11 | NUR ---
PATIENT IS ASLEEP, SLEPT WELL THROUGH THE SHIFT. PAIN MEDS GIVEN REQUESTED BY FAMILY. NO S/S OF PAIN OR ACUTE DISTRESS AT PRESENT. SAFETY AND COMFORT MEASURES MAINTAINED AT ALL TIMES
[2018-01-01 06:30] LABS: BASOPHILS % (AUTO) 0.7 % (0.0-2.0); EOSINOPHILS # (AUTO) 0.2 K/uL (0.0-0.7); EOSINOPHILS % (AUTO) 5.3 % (0.0-7.0); HEMATOCRIT 36.1 % (31.2-41.9); HEMOGLOBIN 11.5 g/dL (10.9-14.3); LYMPHOCYTES # (AUTO) 0.7 K/uL (20.0-40.0); LYMPHOCYTES % (AUTO) 18.2 % (20.5-51.5); MEAN CORPUSCULAR HEMOGLOBIN 30.1 uug (24.7-32.8); MEAN CORPUSCULAR HGB CONC 32 g/dL (32.3-35.6); MEAN CORPUSCULAR VOLUME 94.3 fL (75.5-95.3); MONOCYTES # (AUTO) 0.4 K/uL (2.0-10.0); MONOCYTES % (AUTO) 9.2 % (0.0-11.0); NEUTROPHILS # (AUTO) 2.6 K/uL (1.8-8.9); NEUTROPHILS % (AUTO) 66.6 % (38.5-71.5); PLATELET COUNT (AUTO) 152 K/uL (179-408); RED BLOOD CELL COUNT(AUTO) 3.83 MIL/uL (3.63-4.92)
[2018-01-01 06:34] LABS: CARBON DIOXIDE 25 mmol/L (21-32); CHLORIDE 111 mmol/L (98-107); CREATININE 0.5 mg/dL (0.6-1.3); GLUCOSE 86 mg/dL (74-106); MAGNESIUM 1.6 mg/dL (1.8-2.4); PHOSPHOROUS 2.6 mg/dL (2.5-4.9); POTASSIUM 3.6 mmol/L (3.5-5.1); UREA NITROGEN, BLOOD 10 mg/dL (7-18)
--- NOTE | 2018-01-01 07:30 | NUR ---
spouse on room, patient sleeping comfortably. no distress noted
[2018-01-01] MEDS ORDERED: MAGNESIUM OXIDE 400 MG TABLET PO ONE (09:00)
[2018-01-01] MEDS: HYDROCODONE/APAP 5-325MG TABLET PO PRN ×3 (09:46→22:56)
[2018-01-01] MEDS: GABAPENTIN 100 MG CAPSULE PO SCH ×2 (09:47→16:43)
[2018-01-01] MEDS: NITROFURANTOIN/NITROFURAN MAC 100 MG CAPSULE PO SCH ×2 (09:47→20:41)
[2018-01-01] MEDS: CLOPIDOGREL 75 MG TABLET PO SCH (09:49)
--- NOTE | 2018-01-01 10:10 | NUR ---
spouse left requested vital sign before leaving... see graphics.
--- NOTE | 2018-01-01 12:30 | NUR ---
daughter verona in, aware of patient status. supportive of care
--- NOTE | 2018-01-01 15:23 | NUR ---
daughter left, appreciative of care.
--- NOTE | 2018-01-01 16:00 | NUR ---
awake, complaint of pain abdomen, med as requested.caregiver at bedside
--- NOTE | 2018-01-01 18:22 | NUR ---
daughter at bedside, supportive of care, appreciative. patient sleeping comfortably now. bm x 2 for shift. appetite fair ,voiding well change diaper prn
--- NOTE | 2018-01-01 19:30 | NUR ---
Patient in bed no sob no chest pain noted, cont on pain management, daughter at bedside. Daughter claim that her mother had soft bowel movement, probable cause of abx, Nurse practitioner Jose CERTIFIED MORTICIAN was aware of the soft bowel movement, with no new order at this time. cont to monitor.
[2018-01-01] MEDS: ATORVASTATIN 10 MG TABLET PO SCH (20:41)
[2018-01-01] MEDS: ENOXAPARIN SODIUM 40 MG/0.4 ML DISP.SYRIN SQ SCH (20:42)
[2018-01-01] MEDS: ONDANSETRON 4 MG/2 ML VIAL IV PRN (20:52)
--- NOTE | 2018-01-02 01:51 | NUR ---
request sleeping medications, notify Dr. Farshad Lomax with order, ambien 5mg x1 only.
[2018-01-02] MEDS ORDERED: ZOLPIDEM 5 MG TABLET PO ONE (02:00)
[2018-01-02 02:30] VITALS: BP 122/77
--- NOTE | 2018-01-02 05:51 | NUR ---
Patient fall asleep after sleeping meds given as ordered, no adverse reaction noted, cont on pain management. Patient had soft bowel movement x2 in moderate amount, no odor noted, cont abx for uti, at bedsides, cont to monitor. kept clean and dry. BP stable.
--- NOTE | 2018-01-02 06:10 | NUR ---
refused lab draw at 0600, prefer to draw lab later per request.
--- NOTE | 2018-01-02 06:44 | NUR ---
Patient's request to change patient diaper later, patient asleep at this time. endorsed to next shift.
[2018-01-02] MEDS: ONDANSETRON 4 MG/2 ML VIAL IV PRN (07:00)
[2018-01-02 09:54] LABS: CARBON DIOXIDE 32 mmol/L (21-32); CHLORIDE 104 mmol/L (98-107); CREATININE 0.6 mg/dL (0.6-1.3); GLUCOSE 103 mg/dL (74-106); MAGNESIUM 1.8 mg/dL (1.8-2.4); PHOSPHOROUS 2.9 mg/dL (2.5-4.9); POTASSIUM 3.5 mmol/L (3.5-5.1); UREA NITROGEN, BLOOD 11 mg/dL (7-18)
[2018-01-02 09:55] LABS: EOSINOPHILS # (AUTO) 0.3 K/uL (0.0-0.7); HEMOGLOBIN 12.5 g/dL (10.9-14.3); LYMPHOCYTES # (AUTO) 1.1 K/uL (20.0-40.0); MEAN CORPUSCULAR HGB CONC 32 g/dL (32.3-35.6); MONOCYTES # (AUTO) 0.5 K/uL (2.0-10.0); MONOCYTES % (AUTO) 8.5 % (0.0-11.0)
[2018-01-02] MEDS: NITROFURANTOIN/NITROFURAN MAC 100 MG CAPSULE PO SCH (10:03)
[2018-01-02] MEDS: GABAPENTIN 100 MG CAPSULE PO SCH (10:03)
[2018-01-02] MEDS: HYDROCODONE/APAP 5-325MG TABLET PO PRN ×2 (10:03→13:30)
[2018-01-02] MEDS: CLOPIDOGREL 75 MG TABLET PO SCH (10:03)
[2018-01-02 10:17] LABS: BASOPHILS # (AUTO) 0.1 K/uL (0.0-8.0); EOSINOPHILS % (AUTO) 5.7 % (0.0-7.0); HEMATOCRIT 39.4 % (31.2-41.9); LYMPHOCYTES % (AUTO) 19.2 % (20.5-51.5); MEAN CORPUSCULAR HEMOGLOBIN 29.9 uug (24.7-32.8); MEAN CORPUSCULAR VOLUME 94.4 fL (75.5-95.3); NEUTROPHILS # (AUTO) 3.6 K/uL (1.8-8.9); NEUTROPHILS % (AUTO) 65.6 % (38.5-71.5); PLATELET COUNT (AUTO) 173 K/uL (179-408); RED BLOOD CELL COUNT(AUTO) 4.17 MIL/uL (3.63-4.92)
[2018-01-02 10:18] LABS: WHITE BLOOD COUNT (AUTO) 5.5 K/uL (3.8-11.8)
[2018-01-02] MEDS ORDERED: PANTOPRAZOLE SODIUM 40 MG TABLET.DR PO SCH (10:36)
[2018-01-02 11:26] VITALS: BP 133/77
[2018-01-02] MEDS ORDERED: ONDA4TAB5 PO (13:38)
[2018-01-02] MEDS ORDERED: NITR100C11 PO (13:38)
[2018-01-02] MEDS ORDERED: LACT1CAP72 PO (13:38)
[2018-01-02 15:23] VITALS: BP 114/61
--- NOTE | 2018-01-02 16:15 | NUR ---
IV D/C'D. PT'S DAUGHTER AND CAREGIVER AT BEDSIDE. ALL HOME RX REVIEWED WITH PT. HOME CARE REVIEWED. PHARMACY AT BEDSIDE TO REVIEW ALL CURRENT MEDS. HOME CARE ARRANGED BY DISCHARGE PLANNING.. WRITTEN AND VERBAL INSTRUCTIONS GIVEN.
[2018-01-06] MEDS ORDERED: DULOXETINE 60 MG CAPSULE.DR PO SCH (09:00)
== END 2018-01-02 16:22 | disposition home or self-care (01) | DRG 871 ==
LOC: ER 23:03 → TELE 12-30 03:05 → MED 12-30 03:58
PROVIDERS: ATTEND Registered Nurse
DX: A41.9 Sepsis, unspecified organism (principal); L89.224 Pressure ulcer of left hip, stage 4; L89.214 Pressure ulcer of right hip, stage 4; G93.41 Metabolic encephalopathy; E43 Unspecified severe protein-calorie malnutrition; R53.2 Functional quadriplegia; J96.21 Acute and chronic respiratory failure with hypoxia; J96.22 Acute and chronic respiratory failure with hypercapnia; I50.33 Acute on chronic diastolic (congestive) heart failure; N39.0 Urinary tract infection, site not specified; D68.59 Other primary thrombophilia; Z68.1 Body mass index [BMI] 19.9 or less, adult; K52.1 Toxic gastroenteritis and colitis; R65.20 Severe sepsis without septic shock; I25.2 Old myocardial infarction; Z87.440 Personal history of urinary (tract) infections; Z87.311 Personal history of (healed) other pathological fracture; G89.4 Chronic pain syndrome; M06.9 Rheumatoid arthritis, unspecified; Z98.2 Presence of cerebrospinal fluid drainage device; Z87.891 Personal history of nicotine dependence; J44.9 Chronic obstructive pulmonary disease, unspecified; I11.0 Hypertensive heart disease with heart failure; T36.95XA Adverse effect of unspecified systemic antibiotic, initial encounter; Y92.019 Unspecified place in single-family (private) house as the place of occurrence of the external cause; Z98.41 Cataract extraction status, right eye; Z96.1 Presence of intraocular lens; J84.10 Pulmonary fibrosis, unspecified; Z79.02 Long term (current) use of antithrombotics/antiplatelets; I25.10 Atherosclerotic heart disease of native coronary artery without angina pectoris; F41.9 Anxiety disorder, unspecified; D69.6 Thrombocytopenia, unspecified; F32.9 Major depressive disorder, single episode, unspecified; Z90.710 Acquired absence of both cervix and uterus; Z99.81 Dependence on supplemental oxygen; G35 Multiple sclerosis; D32.9 Benign neoplasm of meninges, unspecified; M24.50 Contracture, unspecified joint; M80.052D Age-related osteoporosis with current pathological fracture, left femur, subsequent encounter for fracture with routine healing; M80.051D Age-related osteoporosis with current pathological fracture, right femur, subsequent encounter for fracture with routine healing
CPT/HCPCS: 36415; 70030-TC; 71045; 83605; 83735; 84100; 84443; 85025; 85730; 87040; 87086; 92610; 93005; 94664; A4217; A4663; C1758; J1200; J1650; J2020; J2405; J2543; J7030; J7060

== ENCOUNTER 2018-01-02 16:59 | Emergency (ER) | payer MEDICARE, OTHER ==
[~2018-01-02] VITALS: Ht 152.4 cm; Wt 43.1 kg
[~2018-01-02 16:59] MED LIST changes: +ACET-2154 PO; -ASPI81TA31 PO; -DIAZ5TAB4 PO; -FLUC100T8 PO; +GABA-532 PO; +HYDR-3326 PO; -HYDR-552 PO; +LACT1CAP72 PO; -LINE600T7 PO; +NITR100C11 PO; +ONDA4TAB5 PO
--- NOTE | 2018-01-02 17:16 | NUR ---
DR MOORE AT BEDSIDE. DAUGHTER IS HERE STATING SHE WANTS TO TAKE HER MOTHER HOME NOW.
--- NOTE | 2018-01-02 17:45 | NUR ---
DC AND FOLLOW UP INSTRUCTIONS GIVEN AND EXPLAINED TO DAUGHTER WHO STATES SHE UNDERSTANDS ALL INSTRUCTIONS.. PATIENT ASSISTED TO CAR.. TO DRIVE HER HOME. DR MOORE AWARE.
== END 2018-01-02 17:47 | disposition home or self-care (01) ==
LOC: ER 17:01
DX: Z00.00 Encounter for general adult medical examination without abnormal findings (principal); I50.9 Heart failure, unspecified; I25.2 Old myocardial infarction; I25.10 Atherosclerotic heart disease of native coronary artery without angina pectoris; J44.9 Chronic obstructive pulmonary disease, unspecified; Z87.891 Personal history of nicotine dependence; Z79.82 Long term (current) use of aspirin; Z79.891 Long term (current) use of opiate analgesic; Z79.899 Other long term (current) drug therapy; Z79.01 Long term (current) use of anticoagulants; Z90.710 Acquired absence of both cervix and uterus
CPT/HCPCS: 93005; A4663

== ENCOUNTER 2018-02-05 16:47 | Inpatient (IN) | payer MEDICARE, OTHER ==
[~2018-02-05] VITALS: Ht 152.4 cm; Wt 37.6 kg
[2018-02-05] MEDS ORDERED: IV NORMAL SALINE 500 ML BAG IV ONE (17:15)
[2018-02-05] MEDS ORDERED: FLUC100T8 PO (17:17)
[2018-02-05 17:29] LABS: BASOPHILS # (AUTO) 0.1 K/uL (0.0-8.0); BASOPHILS % (AUTO) 0.5 % (0.0-2.0); EOSINOPHILS # (AUTO) 0.1 K/uL (0.0-0.7); HEMATOCRIT 41.8 % (31.2-41.9); HEMOGLOBIN 13.5 g/dL (10.9-14.3); LYMPHOCYTES # (AUTO) 1.6 K/uL (20.0-40.0); LYMPHOCYTES % (AUTO) 15.1 % (20.5-51.5); MEAN CORPUSCULAR HEMOGLOBIN 30.2 uug (24.7-32.8); MEAN CORPUSCULAR HGB CONC 32 g/dL (32.3-35.6); MEAN CORPUSCULAR VOLUME 93.4 fL (75.5-95.3); MONOCYTES # (AUTO) 0.6 K/uL (2.0-10.0); NEUTROPHILS # (AUTO) 8.2 K/uL (1.8-8.9); NEUTROPHILS % (AUTO) 77.4 % (38.5-71.5); PLATELET COUNT (AUTO) 196 K/uL (179-408); RED BLOOD CELL COUNT(AUTO) 4.47 MIL/uL (3.63-4.92); WHITE BLOOD COUNT (AUTO) 10.6 K/uL (3.8-11.8)
[2018-02-05 17:31] LABS: CARBON DIOXIDE 30 mmol/L (21-32); CHLORIDE 103 mmol/L (98-107); CREATININE 0.9 mg/dL (0.6-1.3); GLUCOSE 105 mg/dL (74-106); POTASSIUM 4.1 mmol/L (3.5-5.1); UREA NITROGEN, BLOOD 18 mg/dL (7-18)
[2018-02-05 17:43] LABS: ALANINE AMINOTRANSFERASE 11 U/L (14-59); ALKALINE PHOSPHATASE 74 U/L (50-136); ASPARTATE AMINOTRANSFERASE 15 U/L (15-37); BILIRUBIN,DIRECT 0.1 mg/dL (0.0-0.2); BILIRUBIN,TOTAL 0.3 mg/dL (0.2-1.0); TOTAL PROTEIN, SERUM 6.8 g/dL (6.4-8.2)
[2018-02-05 18:05] LABS: *BILIRUBIN,URIN NEGATIVE (NEGATIVE); *BLOOD, URINE 2+ (NEGATIVE); *CLARITY,URINE CLOUDY (CLEAR); *COLOR,URINE YELLOW (YELLOW); *KETONES,URINE 1+ (NEGATIVE); *PROTEIN,URINE 1+ (NEGATIVE); *UROBILINOGEN,URINE 0.2 E.U./dl (NORMAL); LEUKOCYTE ESTERASE ,URINE 3+ (NEGATIVE); NITRITE, URINE POSITIVE (NEGATIVE); UGLUCOSE NEGATIVE (NEGATIVE)
[2018-02-05 18:11] LABS: WBC,URINE TNTC /HPF (0-3)
[2018-02-05 18:12] LABS: BACTERIA,URINE MODERATE /HPF (NONE SEEN); SQUAMOUS EPITHELIAL CELL,UR MANY /HPF (NONE SEEN)
[2018-02-05 18:13] LABS: YEAST,URINE MODERATE /HPF (NONE SEEN)
[2018-02-05] MEDS ORDERED: MEROPENEM 1 G VIAL IV ONE (18:28)
[2018-02-05] MEDS ORDERED: MEROPENEM 1,000 MG in IV NORMAL SALINE 250 ML IV ONE (18:30)
[2018-02-05 20:08] VITALS: BP 168/84
[2018-02-05] MEDS ORDERED: ALBUTEROL SULFATE 2.5 MG/3 ML NEBU NEB PRN (20:15)
[2018-02-05] MEDS ORDERED: ONDANSETRON 4 MG/2 ML VIAL IV PRN (20:15)
[2018-02-05] MEDS ORDERED: ENALAPRILAT DIHYDRATE 1.25 MG/1 ML VIAL IV PRN (20:15)
[2018-02-05] MEDS: ATORVASTATIN 10 MG TABLET PO SCH (21:00)
[2018-02-05] MEDS: ACETAMINOPHEN 325 MG TABLET PO PRN (21:57)
[2018-02-05] MEDS ORDERED: GENTAMICIN SULFATE IV ONE (23:00)
[2018-02-05] MEDS ORDERED: NORMAL SALINE IV ONE (23:00)
[2018-02-05] MEDS: FLUCONAZOLE 100 MG TABLET PO SCH ×2 (23:00→23:17)
[2018-02-05] MEDS ORDERED: GENTAMICIN SULFATE 80 MG/2 ML VIAL ONE (23:17)
[2018-02-05] MEDS: ZOLPIDEM 5 MG TABLET PO PRN (23:34)
[2018-02-06] VITALS (7 sets, daily range): BP systolic 110–166; BP diastolic 65–85
[2018-02-06] MEDS: PANTOPRAZOLE SODIUM 40 MG TABLET.DR PO SCH (06:45)
[2018-02-06 06:46] LABS: ALANINE AMINOTRANSFERASE 10 U/L (14-59); ALKALINE PHOSPHATASE 67 U/L (50-136); ASPARTATE AMINOTRANSFERASE 13 U/L (15-37); BILIRUBIN,TOTAL 0.4 mg/dL (0.2-1.0); CARBON DIOXIDE 30 mmol/L (21-32); CHLORIDE 103 mmol/L (98-107); CREATININE 0.6 mg/dL (0.6-1.3); GLUCOSE 78 mg/dL (74-106); MAGNESIUM 1.5 mg/dL (1.8-2.4); PHOSPHOROUS 3.7 mg/dL (2.5-4.9); POTASSIUM 3.8 mmol/L (3.5-5.1); TOTAL PROTEIN, SERUM 6.2 g/dL (6.4-8.2); UREA NITROGEN, BLOOD 13 mg/dL (7-18)
[2018-02-06 06:59] LABS: BASOPHILS % (AUTO) 0.7 % (0.0-2.0); EOSINOPHILS # (AUTO) 0.1 K/uL (0.0-0.7); EOSINOPHILS % (AUTO) 2.5 % (0.0-7.0); HEMATOCRIT 39.1 % (31.2-41.9); HEMOGLOBIN 12.6 g/dL (10.9-14.3); LYMPHOCYTES % (AUTO) 34.4 % (20.5-51.5); MEAN CORPUSCULAR HEMOGLOBIN 29.8 uug (24.7-32.8); MEAN CORPUSCULAR HGB CONC 32 g/dL (32.3-35.6); MEAN CORPUSCULAR VOLUME 92.1 fL (75.5-95.3); MONOCYTES # (AUTO) 0.4 K/uL (2.0-10.0); MONOCYTES % (AUTO) 7.7 % (0.0-11.0); NEUTROPHILS # (AUTO) 3.2 K/uL (1.8-8.9); NEUTROPHILS % (AUTO) 54.7 % (38.5-71.5); PLATELET COUNT (AUTO) 183 K/uL (179-408); RED BLOOD CELL COUNT(AUTO) 4.25 MIL/uL (3.63-4.92)
[2018-02-06 07:08] LABS: WHITE BLOOD COUNT (AUTO) 5.9 K/uL (3.8-11.8)
[2018-02-06] MEDS: DULOXETINE 60 MG CAPSULE.DR PO SCH (08:25)
[2018-02-06] MEDS: GABAPENTIN 100 MG CAPSULE PO SCH ×2 (08:25→17:07)
[2018-02-06] MEDS: LACTOBACILLUS RHAMNOSUS GG 1 EACH CAPSULE PO SCH (08:26)
[2018-02-06] MEDS: CLOPIDOGREL 75 MG TABLET PO SCH (08:26)
[2018-02-06] MEDS ORDERED: CLOPIDOGREL 75 MG PO SCH (09:00)
[2018-02-06] MEDS: ACETAMINOPHEN 325 MG TABLET PO PRN (10:09)
[2018-02-06] MEDS: MAGNESIUM SULFATE/D5W 100 ML IV SCH ×2 (11:33→12:29)
[2018-02-06] MEDS ORDERED: GENTAMICIN SULFATE IV ONE (21:00)
[2018-02-06] MEDS ORDERED: DEXTROSE 5% IV ONE (21:00)
[2018-02-06] MEDS: ATORVASTATIN 10 MG TABLET PO SCH (21:06)
[2018-02-06] MEDS: FLUCONAZOLE 100 MG TABLET PO SCH (21:06)
[2018-02-06] MEDS: ZOLPIDEM 5 MG TABLET PO PRN (23:26)
[2018-02-07 00:33] VITALS: BP 120/62
[2018-02-07] MEDS: HYDROCODONE/APAP 5-325MG TABLET PO PRN ×2 (02:46→20:54)
[2018-02-07 04:22] VITALS: BP 115/65
[2018-02-07 08:03] VITALS: BP 115/55
[2018-02-07] MEDS: PANTOPRAZOLE SODIUM 40 MG TABLET.DR PO SCH (08:38)
[2018-02-07] MEDS: LACTOBACILLUS RHAMNOSUS GG 1 EACH CAPSULE PO SCH (08:39)
[2018-02-07] MEDS: CLOPIDOGREL 75 MG TABLET PO SCH (08:39)
[2018-02-07] MEDS: GABAPENTIN 100 MG CAPSULE PO SCH ×2 (08:39→16:24)
[2018-02-07] MEDS: DULOXETINE 60 MG CAPSULE.DR PO SCH (08:39)
[2018-02-07] MEDS ORDERED: BRIN8DRO EACHEYE (11:15)
[2018-02-07 11:52] VITALS: BP 118/68
[2018-02-07] MEDS: ACETAMINOPHEN 325 MG TABLET PO PRN (13:11)
[2018-02-07 16:12] VITALS: BP 96/53
[2018-02-07 20:34] VITALS: BP 152/87
[2018-02-07] MEDS: FLUCONAZOLE 100 MG TABLET PO SCH (20:54)
[2018-02-07] MEDS: ATORVASTATIN 10 MG TABLET PO SCH (20:55)
[2018-02-07] MEDS ORDERED: GENTAMICIN SULFATE IV SCH (21:00)
[2018-02-07] MEDS ORDERED: DEXTROSE 5% IV SCH (21:00)
[2018-02-07] MEDS: ZOLPIDEM 5 MG TABLET PO PRN (21:46)
[2018-02-08 06:35] VITALS: BP 112/68
[2018-02-08] MEDS: PANTOPRAZOLE SODIUM 40 MG TABLET.DR PO SCH (07:00)
[2018-02-08 07:35] LABS: CARBON DIOXIDE 34 mmol/L (21-32); CHLORIDE 104 mmol/L (98-107); CREATININE 0.6 mg/dL (0.6-1.3); GLUCOSE 106 mg/dL (74-106); POTASSIUM 4.2 mmol/L (3.5-5.1); UREA NITROGEN, BLOOD 21 mg/dL (7-18)
[2018-02-08 07:49] VITALS: BP 101/62
[2018-02-08] MEDS: DULOXETINE 60 MG CAPSULE.DR PO SCH (08:44)
[2018-02-08] MEDS: CLOPIDOGREL 75 MG TABLET PO SCH (08:44)
[2018-02-08] MEDS: GABAPENTIN 100 MG CAPSULE PO SCH ×2 (08:44→17:23)
[2018-02-08] MEDS: LACTOBACILLUS RHAMNOSUS GG 1 EACH CAPSULE PO SCH (08:44)
[2018-02-08 11:41] VITALS: BP 142/67
[2018-02-08] MEDS: ACETAMINOPHEN 325 MG TABLET PO PRN ×2 (13:16→20:21)
[2018-02-08 17:00] VITALS: BP 141/57
[2018-02-08] MEDS: MEROPENEM 0.5 G in IV NORMAL SALINE 50 ML IV SCH (17:24)
[2018-02-08] MEDS ORDERED: TRAMADOL HCL 50 MG TABLET PO PRN (18:45)
[2018-02-08 20:00] VITALS: BP 156/77
[2018-02-08] MEDS: FLUCONAZOLE 100 MG TABLET PO SCH (20:21)
[2018-02-08] MEDS: ATORVASTATIN 10 MG TABLET PO SCH (20:22)
[2018-02-09] MEDS: ZOLPIDEM 5 MG TABLET PO PRN (00:44)
[2018-02-09] MEDS: MEROPENEM 0.5 G in IV NORMAL SALINE 50 ML IV SCH ×2 (01:04→09:16)
[2018-02-09 04:00] VITALS: BP 130/66
[2018-02-09] MEDS: PANTOPRAZOLE SODIUM 40 MG TABLET.DR PO SCH (06:15)
[2018-02-09] MEDS ORDERED: LISINOPRIL 5 MG TABLET PO SCH (09:00)
[2018-02-09] MEDS: GABAPENTIN 100 MG CAPSULE PO SCH ×2 (09:00→16:27)
[2018-02-09] MEDS ORDERED: IV NORMAL SALINE 500 ML IV ONE (09:15)
[2018-02-09] MEDS: DULOXETINE 60 MG CAPSULE.DR PO SCH (09:16)
[2018-02-09] MEDS: LACTOBACILLUS RHAMNOSUS GG 1 EACH CAPSULE PO SCH (09:16)
[2018-02-09] MEDS: CLOPIDOGREL 75 MG TABLET PO SCH (09:16)
[2018-02-09 12:06] VITALS: BP 105/53
[2018-02-09] MEDS: ACETAMINOPHEN 325 MG TABLET PO PRN (13:26)
[2018-02-09 15:38] VITALS: BP 152/74
[2018-02-09] MEDS ORDERED: MEROPENEM 1 G in IV NORMAL SALINE 100 ML IV SCH (17:00)
== END 2018-02-09 17:45 | disposition home health service (06) | DRG 871 ==
LOC: ER 16:49 → TELE 18:52 → MED 02-07 14:25
PROVIDERS: ADMIT Nurse Practitioner Acute Care; ATTEND Internal Medicine
PROC: 05HY33Z Insertion of Infusion Device into Upper Vein, Percutaneous Approach (ICD-10-PCS; principal; 2018-02-08)
DX: A41.9 Sepsis, unspecified organism (principal); L89.223 Pressure ulcer of left hip, stage 3; L89.213 Pressure ulcer of right hip, stage 3; G93.41 Metabolic encephalopathy; R53.2 Functional quadriplegia; E43 Unspecified severe protein-calorie malnutrition; B37.49 Other urogenital candidiasis; J96.12 Chronic respiratory failure with hypercapnia; J96.11 Chronic respiratory failure with hypoxia; I50.32 Chronic diastolic (congestive) heart failure; D68.59 Other primary thrombophilia; Z68.1 Body mass index [BMI] 19.9 or less, adult; R65.20 Severe sepsis without septic shock; B96.5 Pseudomonas (aeruginosa) (mallei) (pseudomallei) as the cause of diseases classified elsewhere; I11.0 Hypertensive heart disease with heart failure; Z87.891 Personal history of nicotine dependence; J44.9 Chronic obstructive pulmonary disease, unspecified; I25.10 Atherosclerotic heart disease of native coronary artery without angina pectoris; D32.0 Benign neoplasm of cerebral meninges; M06.9 Rheumatoid arthritis, unspecified; K59.00 Constipation, unspecified; I25.2 Old myocardial infarction; J84.10 Pulmonary fibrosis, unspecified; Z98.2 Presence of cerebrospinal fluid drainage device; N31.9 Neuromuscular dysfunction of bladder, unspecified; G35 Multiple sclerosis; Z87.440 Personal history of urinary (tract) infections; Z99.81 Dependence on supplemental oxygen; Z90.710 Acquired absence of both cervix and uterus; M84.65 Pathological fracture in other disease, pelvis and femur; M84.651 Pathological fracture in other disease, right femur; G89.4 Chronic pain syndrome; M80.88XD Other osteoporosis with current pathological fracture, vertebra(e), subsequent encounter for fracture with routine healing; F41.9 Anxiety disorder, unspecified; G47.00 Insomnia, unspecified
CPT/HCPCS: 36415; 70030-TC; 83605; 83735; 84100; 85025; 85730; 87040; 87077; 87086; 93005; A4663; J1580; J2185; J3475; J3490; J7030; J7040; J7050; J7060

== ENCOUNTER 2018-02-16 00:46 | Emergency (ER) | payer MEDICARE, OTHER ==
[~2018-02-16] VITALS: Ht 149.9 cm; Wt 38.6 kg
[~2018-02-16 00:46] MED LIST changes: +BRIN8DRO EACHEYE; +FLUC100T8 PO; -LUMIGAN 0.01% EYE DROPS EACHEYE; -NITR100C11 PO
--- NOTE | 2018-02-16 01:04 | NUR ---
Per Thuy White to access R upper arm midline.
--- NOTE | 2018-02-16 01:35 | NUR ---
Patient/family refused Lab Draw/EKG/Xray and all other treatment. Patient/family would like to take the patient home AMA. ER is aware.
--- NOTE | 2018-02-16 01:46 | NUR ---
Patient does not wish to proceed with medical care recommended by Dr. Lorenzo. Patient given information related to possible complications, up to and including , which could occur as a result of leaving the hospital at this time. Patient verbalizes understanding of risks involved due to leaving against medical advice. Patient has signed AMA form. Patient driven home in private vehicle by . All belongings with patient.
== END 2018-02-16 01:56 | disposition home or self-care (01) ==
LOC: ER 00:51
DX: R41.82 Altered mental status, unspecified (principal); I50.9 Heart failure, unspecified; I25.2 Old myocardial infarction; I25.10 Atherosclerotic heart disease of native coronary artery without angina pectoris; J44.9 Chronic obstructive pulmonary disease, unspecified; F17.210 Nicotine dependence, cigarettes, uncomplicated; Z90.710 Acquired absence of both cervix and uterus
CPT/HCPCS: 93005; 99284; A4663

== ENCOUNTER 2018-09-14 09:25 | Inpatient (IN) | payer MEDICARE, MEDICAID ==
[~2018-09-14] VITALS: Ht 152.4 cm; Wt 45.4 kg
[2018-09-14] VITALS (11 sets, daily range): BP systolic 90–148; BP diastolic 48–68
[2018-09-14] MEDS ORDERED: ZOLP10TA2 PO (09:43)
[2018-09-14] MEDS ORDERED: FURO-152 PO (09:43)
[2018-09-14] MEDS ORDERED: IPRATROPIUM BROMIDE 0.5 MG/2.5 ML NEBU NEB ONE (09:45)
[2018-09-14] MEDS ORDERED: ALBUTEROL SULFATE 2.5 MG/3 ML NEBU NEB ONE (09:45)
[2018-09-14] MEDS ORDERED: IPRATROPIUM BROMIDE 0.5 MG/2.5 ML NEBU ONE (09:46)
[2018-09-14] MEDS ORDERED: ALBUTEROL SULFATE 2.5 MG/3 ML NEBU ONE (09:46)
--- NOTE | 2018-09-14 09:51 | NUR ---
PT IS IN ROOM #1B. DR KELLY EVALUATED THE PT.
--- NOTE | 2018-09-14 09:52 | NUR ---
ABG results critical values given to ..
[2018-09-14 09:54] LABS: ABG BASE EXCESS 2.7 mmol/L; ABG HCO3 34.1 mmol/L; ABG PCO2 96.8 mmHg (35.0-45.0); ABG PH 7.165 (7.350-7.450); ABG PO2 82.8 mmHg (75.0-100.0); ABG SITE RIGHT RADIAL; ABG TOTAL HEMOGLOBIN 12.7 G/dL (12.0-16.0); COHb 2.7 % (0.5-1.5); MetHb 0.3 % (0.0-1.5); O2Hb 91.6 % (94.0-97.0)
--- NOTE | 2018-09-14 10:10 | NUR ---
Pt placed on BIPAP with ordered settings of 14/5, Rate-16, FIO2-100% Tolerating BIPAP settings well. SpO2-98% ProtectaGel in place. Good skin integrity noted to area of mask application. Minimal leak achieved. BIPAP alarm settings checked, on and audible. Plugged into emergency outlet. ABG drawn and results reported to DR Sotelo. No changes ordered. Will continue to monitor Pt.
[2018-09-14 10:15] LABS: CARBON DIOXIDE 35 mmol/L (21-32); CHLORIDE 106 mmol/L (98-107); CREATININE 0.8 mg/dL (0.6-1.3); GLUCOSE 104 mg/dL (74-106); POTASSIUM 5.3 mmol/L (3.5-5.1); UREA NITROGEN, BLOOD 27 mg/dL (7-18)
[2018-09-14] MEDS ORDERED: methylPREDNISolone SOD SUCC 125 MG/2 ML VIAL IV ONE (10:15)
[2018-09-14] MEDS ORDERED: methylPREDNISolone SOD SUCC 125 MG/2 ML VIAL ONE (10:20)
--- NOTE | 2018-09-14 10:23 | NUR ---
PT's SINCERE REFUSED F/C INSERTION. DR KELLY WAS NOTIFIED.
[2018-09-14 10:26] LABS: ALANINE AMINOTRANSFERASE 18 U/L (14-59); ALKALINE PHOSPHATASE 100 U/L (50-136); ASPARTATE AMINOTRANSFERASE 18 U/L (15-37); BILIRUBIN,DIRECT 0.1 mg/dL (0.0-0.2); BILIRUBIN,TOTAL 0.2 mg/dL (0.2-1.0); TOTAL PROTEIN, SERUM 7.6 g/dL (6.4-8.2)
[2018-09-14] MEDS ORDERED: VANCOMYCIN IV 1,000 MG in IV DEXTROSE 5% 250 ML IV ONE (10:30)
[2018-09-14] MEDS ORDERED: LEVOFLOXACIN 750MG/D5W 150 ML IV ONE ×2 (10:30)
[2018-09-14] MEDS ORDERED: VANCOMYCIN IV 200 ML ONE (10:31)
[2018-09-14 10:56] LABS: BASOPHILS # (AUTO) 0.1 K/uL (0.0-8.0); BASOPHILS % (AUTO) 0.9 % (0.0-2.0); EOSINOPHILS # (AUTO) 0.1 K/uL (0.0-0.7); HEMATOCRIT 42.5 % (31.2-41.9); HEMOGLOBIN 12.6 g/dL (10.9-14.3); LYMPHOCYTES % (AUTO) 11.5 % (20.5-51.5); MEAN CORPUSCULAR HGB CONC 30 g/dL (32.3-35.6); MEAN CORPUSCULAR VOLUME 94.6 fL (75.5-95.3); MONOCYTES # (AUTO) 0.6 K/uL (2.0-10.0); MONOCYTES % (AUTO) 7.1 % (0.0-11.0); NEUTROPHILS # (AUTO) 6.7 K/uL (1.8-8.9); NEUTROPHILS % (AUTO) 79.5 % (38.5-71.5); PLATELET COUNT (AUTO) 286 K/uL (179-408); RED BLOOD CELL COUNT(AUTO) 4.49 MIL/uL (3.63-4.92); WHITE BLOOD COUNT (AUTO) 8.4 K/uL (3.8-11.8)
[2018-09-14 11:08] LABS: ABG BASE EXCESS 3.8 mmol/L; ABG HCO3 34.1 mmol/L; ABG PCO2 86.9 mmHg (35.0-45.0); ABG PH 7.212 (7.350-7.450); ABG PO2 73.5 mmHg (75.0-100.0); ABG SITE RIGHT RADIAL; ABG TOTAL HEMOGLOBIN 12.2 G/dL (12.0-16.0); COHb 2.4 % (0.5-1.5); MetHb 0.3 % (0.0-1.5); O2Hb 90.9 % (94.0-97.0); VENT MODE BIPAP
--- NOTE | 2018-09-14 11:30 | NUR ---
Patient transferred to ICU and will remain in ER 1-D, and received report from Drea DA SILVA taking care. Wes Paul RN
--- NOTE | 2018-09-14 11:43 | NUR ---
REPORT WAS GIVEN TO CCU RN TERRANCE MCCLOUD.
--- NOTE | 2018-09-14 14:55 | NUR ---
Patient with right hip wound with drsg, and patient family refusing to allow to remove drsg to observe wound due to patient wound care at home done yesterday. Endorsed report to Nir DA SILVA CCU nurse. Wes Paul RN
--- NOTE | 2018-09-14 14:58 | NUR ---
Full telephone SBAR report received by AVINASH Harvey.
--- NOTE | 2018-09-14 15:50 | NUR ---
Pt brought in from ER with respiratory therapist on BiPAP. Pt stable and nad noted upon admission.
--- NOTE | 2018-09-14 16:25 | NUR ---
Daughter here at the bedside and updated with plan of care. Medical history reviewed and obtained from daughter and daughter agreed to keep pt full code.
[2018-09-14] MEDS ORDERED: BUMETANIDE INJ 4 MG in IV DEXTROSE 5% 24 ML IV ONE (17:15)
[2018-09-14] MEDS ORDERED: Z GUARD REMEDY PASTE 57 GM TUBE TOP PRN (17:15)
[2018-09-14] MEDS ORDERED: ONDANSETRON 4 MG/2 ML VIAL IV PRN (17:15)
[2018-09-14] MEDS ORDERED: MORPHINE SULFATE 2 MG/1 ML DISP.SYRIN IV PRN (17:15)
[2018-09-14 17:40] LABS: ABG BASE EXCESS 4.8 mmol/L; ABG PCO2 85.8 mmHg (35.0-45.0); ABG PH 7.228 (7.350-7.450); ABG PO2 102.5 mmHg (75.0-100.0); ABG SITE RIGHT RADIAL; ABG TOTAL HEMOGLOBIN 12.2 G/dL (12.0-16.0); COHb 2.1 % (0.5-1.5); MetHb 0.2 % (0.0-1.5); O2Hb 94.8 % (94.0-97.0); VENT MODE BIPAP
[2018-09-14] MEDS: ACETAMINOPHEN 325 MG TABLET PO PRN (18:27)
--- NOTE | 2018-09-14 19:30 | NUR ---
Received patient in bed on the BiPap, initial setting 14/5, fiO2 50%, back up rate of 22. Breathing is even, non-labored, and saturation 95% and RR 22. Patient open eyes spontaneously and able to move upper extremities but weak.Right hand is contracted/deform. Patient cool to touch, checked temperature by axillary, 99.3. Placed extra blankets. Lower extremities are flaccid and left leg contracted. Bumex infusion drip in progress at 10mg/hour via right wrist heplock.
--- NOTE | 2018-09-14 19:56 | NUR ---
Pt rec'd on V60 on settings of BIPAP; IPAP 14, EPAP 5, set resp. rate 22 and FIO2-50%. No resp. distress noted. Pt to be monitored throughout the duration of the shift. V60 alarm parameters have been checked and remain audible.
--- NOTE | 2018-09-14 20:00 | NUR ---
inserted loera catheter placed number 16 greenlandic. Done aseptically. Patient tolerated procedure. obtained urine with following characteristics: yellow, cloudy and with sediment. sent sample for UA and C and S.
--- NOTE | 2018-09-14 20:10 | NUR ---
Patient daughter came at bedside, questions have been answered. Updated with patient status and condition.
[2018-09-14 20:36] LABS: *BILIRUBIN,URIN NEGATIVE (NEGATIVE); *BLOOD, URINE 2+ (NEGATIVE); *CLARITY,URINE CLOUDY (CLEAR); *COLOR,URINE YELLOW (YELLOW); *KETONES,URINE NEGATIVE (NEGATIVE); *UROBILINOGEN,URINE 0.2 E.U./dl (NORMAL); LEUKOCYTE ESTERASE ,URINE 3+ (NEGATIVE); NITRITE, URINE POSITIVE (NEGATIVE); UGLUCOSE NEGATIVE (NEGATIVE)
--- NOTE | 2018-09-14 20:55 | NUR ---
Spoke to Dr. Bertram Bran, notified about patient being on plavix and lovenox. New orders: to reduce lovenox to 30. In addition, dictated ABG's to Dr. Bertram Bran. New orders for BiPap settings: FiO2-50%, inhalation rate - 18, exhalation rate - 8, back up rate of 30. ABGs one hour after.
[2018-09-14] MEDS ORDERED: ENOXAPARIN SODIUM 40 MG/0.4 ML DISP.SYRIN SQ SCH (21:00)
--- NOTE | 2018-09-14 21:01 | NUR ---
Per DNP TS settings changes made. IPAP 18, EPAP 8 and set resp. rate 30.
[2018-09-14 21:19] LABS: BACTERIA,URINE MANY /HPF (NONE SEEN); SQUAMOUS EPITHELIAL CELL,UR MANY /HPF (NONE SEEN); WBC,URINE TNTC /HPF (0-3)
[2018-09-14] MEDS: ENOXAPARIN SODIUM 30 MG/0.3 ML DISP.SYRIN SQ SCH (21:37)
[2018-09-14] MEDS: ATORVASTATIN 10 MG TABLET PO SCH (21:37)
--- NOTE | 2018-09-14 22:00 | NUR ---
patient at bedside and updated patient with patient condition ,as per he is staying for the night to be with .
--- NOTE | 2018-09-14 22:05 | NUR ---
Contacted Dr. Bran for updated ABGs. No new orders to changes in setting. ABGs to be obtained tomorrow morning. Patient tolerated crushed medications with applesauce.
[2018-09-14 22:19] LABS: ABG BASE EXCESS 8.5 mmol/L; ABG HCO3 34.7 mmol/L; ABG PCO2 55.1 mmHg (35.0-45.0); ABG PH 7.417 (7.350-7.450); ABG PO2 85.1 mmHg (75.0-100.0); ABG SITE LEFT BRACHIAL; ABG TOTAL HEMOGLOBIN 12.3 G/dL (12.0-16.0); COHb 1.9 % (0.5-1.5); MetHb 0.2 % (0.0-1.5); O2Hb 94.6 % (94.0-97.0); VENT MODE BIPAP 18/8
--- NOTE | 2018-09-14 22:32 | NUR ---
Patient family visited and stated they do not want morphine to be given to the patient. Morphine was not given and returned.
[2018-09-14] MEDS ORDERED: LORAZEPAM 2 MG/1 ML VIAL IV PRN (22:45)
[2018-09-15] VITALS (24 sets, daily range): BP systolic 91–146; BP diastolic 53–92
--- NOTE | 2018-09-15 02:00 | NUR ---
turned and reposition patient, offloaded back and elevated extremities with pillows heel off bed. ,no s/s of pain . tolerating bipap . rr 28 saturation 98%.continue to monitor v/s and levels of comfort .
--- NOTE | 2018-09-15 03:30 | NUR ---
am care done ,bath patient skin care done ,changed soiled linens and gown .oral care done and f/c done .respiratory therapist at bedside.
[2018-09-15 04:58] LABS: BASOPHILS % (AUTO) 0.1 % (0.0-2.0); HEMATOCRIT 40.2 % (31.2-41.9); HEMOGLOBIN 12.4 g/dL (10.9-14.3); LYMPHOCYTES # (AUTO) 0.7 K/uL (20.0-40.0); LYMPHOCYTES % (AUTO) 11.4 % (20.5-51.5); MEAN CORPUSCULAR HEMOGLOBIN 28.3 uug (24.7-32.8); MEAN CORPUSCULAR HGB CONC 31 g/dL (32.3-35.6); MEAN CORPUSCULAR VOLUME 91.7 fL (75.5-95.3); MONOCYTES # (AUTO) 0.5 K/uL (2.0-10.0); NEUTROPHILS # (AUTO) 4.8 K/uL (1.8-8.9); NEUTROPHILS % (AUTO) 80.5 % (38.5-71.5); PLATELET COUNT (AUTO) 272 K/uL (179-408); RED BLOOD CELL COUNT(AUTO) 4.38 MIL/uL (3.63-4.92)
[2018-09-15 05:09] LABS: ALANINE AMINOTRANSFERASE 10 U/L (14-59); ALKALINE PHOSPHATASE 87 U/L (50-136); ASPARTATE AMINOTRANSFERASE 9 U/L (15-37); BILIRUBIN,TOTAL 0.3 mg/dL (0.2-1.0); CARBON DIOXIDE 37 mmol/L (21-32); CHLORIDE 102 mmol/L (98-107); CHOLESTEROL 145 mg/dL (<200); CREATININE 0.7 mg/dL (0.6-1.3); GLUCOSE 105 mg/dL (74-106); HDL CHOLESTEROL 62 mg/dL (40-60); MAGNESIUM 1.7 mg/dL (1.8-2.4); POTASSIUM 4.5 mmol/L (3.5-5.1); TOTAL PROTEIN, SERUM 7.2 g/dL (6.4-8.2); TRIGLYCERIDES 111 MG/DL (30-150); UREA NITROGEN, BLOOD 24 mg/dL (7-18)
[2018-09-15 05:17] LABS: THYROID STIMULATING HORMONE 0.217 mIU/mL (0.358-3.740)
[2018-09-15 05:57] LABS: ABG BASE EXCESS 6.6 mmol/L; ABG HCO3 36.5 mmol/L; ABG PCO2 85.8 mmHg (35.0-45.0); ABG PH 7.247 (7.350-7.450); ABG PO2 86.5 mmHg (75.0-100.0); ABG SITE RIGHT RADIAL; COHb 2.3 % (0.5-1.5); MetHb 0.2 % (0.0-1.5); O2Hb 92.8 % (94.0-97.0); VENT MODE BIPAP
--- NOTE | 2018-09-15 06:26 | NUR ---
called [facility] for abnormal ABG , spoked to earlene HYDE as per earlene hyde she is a c02 retainer and a big time smoker -COPD .NO repeat ABG ordered and no bipap changes same bipap settings .
[2018-09-15] MEDS: CLOPIDOGREL 75 MG TABLET PO SCH (07:48)
[2018-09-15] MEDS: GABAPENTIN 100 MG CAPSULE PO SCH ×2 (07:48→17:03)
[2018-09-15] MEDS: DULOXETINE 60 MG CAPSULE.DR PO SCH (07:48)
--- NOTE | 2018-09-15 08:34 | NUR ---
Spoke with Dr. Rasmussen on the telephone and made aware to see pt for consult.
--- NOTE | 2018-09-15 08:39 | NUR ---
US tech here to see pt for 2D Echocardiogram.
[2018-09-15] MEDS: CEFTRIAXONE 1 G in IV DEXTROSE 5% 50 ML IV SCH (08:48)
--- NOTE | 2018-09-15 09:29 | NUR ---
Dr. Rasmussen here to see pt. Full report given. New orders received.
[2018-09-15] MEDS: AZITHROMYCIN IV 250 MG in IV DEXTROSE 5% 250 ML IV SCH (09:45)
[2018-09-15] MEDS ORDERED: ALBUTEROL SULFATE 2.5 MG/3 ML NEBU NEB PRN (10:00)
[2018-09-15] MEDS ORDERED: IPRATROPIUM BROMIDE 0.5 MG/2.5 ML NEBU NEB PRN (10:00)
--- NOTE | 2018-09-15 10:57 | NUR ---
Spoke with JULIA Bran on the telephone. Full report given. No new orders received.
[2018-09-15] MEDS: MAGNESIUM SULFATE/D5W 100 ML IV SCH ×2 (10:58→12:05)
[2018-09-15] MEDS: ACETAMINOPHEN 325 MG TABLET PO PRN ×2 (11:37→18:32)
[2018-09-15] MEDS: ALBUTEROL SULFATE 2.5 MG/3 ML NEBU NEB SCH ×3 (11:50→19:40)
[2018-09-15] MEDS: IPRATROPIUM BROMIDE 0.5 MG/2.5 ML NEBU NEB SCH ×3 (11:50→19:40)
[2018-09-15] MEDS: methylPREDNISolone SOD SUCC 40 MG/ML VIAL IV SCH ×2 (13:17→21:11)
--- NOTE | 2018-09-15 13:40 | NUR ---
WOUND CARE CONSULT: PT'S DAUGHTER REFUSED SKIN ASSESSMENT AND STATES THAT SHE WILL DO ALL WOUND CARE. PT ON FIRST STEP CIRRUS LOW AIRLOSS MATTRESS. PT ON BIPAP AT THIS TIME. RECOMMENDATIONS MADE FOR SKIN PROTECTION. DISCUSSED WITH NURSING STAFF. WILL SEE PRN. ANNE IN AGREEMENT WITH PLAN OF CARE.
--- NOTE | 2018-09-15 13:41 | NUR ---
Daughter refusing wound care to treatment to the pt and refusing housing court judge to assess skin.
[2018-09-15 14:08] LABS: ABG BASE EXCESS 9.8 mmol/L; ABG PCO2 56.2 mmHg (35.0-45.0); ABG PH 7.424 (7.350-7.450); ABG SITE RIGHT RADIAL; ABG TOTAL HEMOGLOBIN 11.8 G/dL (12.0-16.0); COHb 2.4 % (0.5-1.5); MetHb 0.2 % (0.0-1.5); O2Hb 92.5 % (94.0-97.0); VENT MODE BIPAP 20/6
[2018-09-15] MEDS ORDERED: BUMETANIDE 1 MG/4 ML VIAL IV ONE (14:30)
--- NOTE | 2018-09-15 14:47 | NUR ---
ABG results reported to Dr. Rasmussen. No new orders received.
--- NOTE | 2018-09-15 16:32 | NUR ---
PT WAS REC'D ON BIPAP THIS AM. PER MD CORREA SETTING CHANGES MADE WITH ABG'S ORDERED, DONE AND RESULTED TO . PT REMOVED FROM BIPAP, PLACED TO LOW FLOW O2.
[2018-09-15] MEDS: DORZOLAMIDE 2% OPHT DROP 10 ML BOTTLE EACHEYE SCH (17:03)
--- NOTE | 2018-09-15 19:30 | NUR ---
received patient in bed. Patient off of bipap and on nasal canula 2.0L. tolerating well and saturation at 92%. at bedside. Patient is alert, vital signs are within normal limits and patient is in stable condition. Patient has been turned to left lateral position from initial supine position. Patient still has foleycatheter with yellowish/cloudy unit. Patient has good amount of output of urine. Patient has IV heplock on right wrist that is patent and intact.
[2018-09-15] MEDS: CULTURELLE CAPSULE PO SCH (20:32)
[2018-09-15] MEDS: ATORVASTATIN 10 MG TABLET PO SCH (20:34)
[2018-09-15] MEDS: LATANOPROST OPHT DROP 2.5 ML BOTTLE EACHEYE SCH (20:34)
[2018-09-15] MEDS: ENOXAPARIN SODIUM 30 MG/0.3 ML DISP.SYRIN SQ SCH (20:45)
[2018-09-15] MEDS ORDERED: ENOXAPARIN SODIUM 30 MG/0.3 ML DISP.SYRIN SQ SCH (21:00)
--- NOTE | 2018-09-15 21:52 | NUR ---
nursing leather products supervisor and security at bedside speaking to family members in regards to procedures and policies for visiting hours. family continues to disagree and wants to sleep in the room on the floor. Came to agreement of coming for 15 minutes for every hour.
[2018-09-15] MEDS: MORPHINE SULFATE 2 MG/1 ML DISP.SYRIN IV PRN (22:18)
--- NOTE | 2018-09-15 23:00 | NUR ---
Nurse air intercept controller supervisor and both security personnels at bedside speaking to the patient family. patient daughter continues to refuse to leave and non-compliant with policies and procedures. Patient daughter disagrees to leave and continues to prolong her stay.
[2018-09-16] VITALS (20 sets, daily range): BP systolic 108–148; BP diastolic 59–82
[2018-09-16] MEDS: MORPHINE SULFATE 2 MG/1 ML DISP.SYRIN IV PRN ×4 (03:07→22:00)
--- NOTE | 2018-09-16 04:00 | NUR ---
cleanse the patient and did complete linen change.
[2018-09-16] MEDS: methylPREDNISolone SOD SUCC 40 MG/ML VIAL IV SCH ×3 (05:18→21:11)
--- NOTE | 2018-09-16 05:30 | NUR ---
Patient expresses refuses SCD for patient. After educations of risks and benefits, refuses and no longer want the SCD to be used for the patient,.
--- NOTE | 2018-09-16 05:45 | NUR ---
chest x-ray has been taken. waiting for results.
[2018-09-16] MEDS: IPRATROPIUM BROMIDE 0.5 MG/2.5 ML NEBU NEB SCH ×4 (07:28→19:30)
[2018-09-16] MEDS: ALBUTEROL SULFATE 2.5 MG/3 ML NEBU NEB SCH ×4 (07:28→19:30)
--- NOTE | 2018-09-16 08:00 | NUR ---
Report received.Pt remains awake,alert,oriented.Pt is very contracted.Respiration even,unlabored.Pt daughter at bedside,updated with plan of care.
[2018-09-16 08:28] LABS: ABG BASE EXCESS 10.2 mmol/L; ABG HCO3 34.7 mmol/L; ABG PCO2 46.4 mmHg (35.0-45.0); ABG PH 7.492 (7.350-7.450); ABG SITE RIGHT RADIAL; ABG TOTAL HEMOGLOBIN 11.8 G/dL (12.0-16.0); MetHb 0.2 % (0.0-1.5); O2Hb 88.7 % (94.0-97.0); VENT MODE Nasal Cannula
[2018-09-16 08:32] LABS: BASOPHILS % (AUTO) 0.1 % (0.0-2.0); HEMATOCRIT 38.4 % (31.2-41.9); HEMOGLOBIN 12.2 g/dL (10.9-14.3); LYMPHOCYTES # (AUTO) 0.4 K/uL (20.0-40.0); LYMPHOCYTES % (AUTO) 11.8 % (20.5-51.5); MEAN CORPUSCULAR HEMOGLOBIN 28.5 uug (24.7-32.8); MEAN CORPUSCULAR HGB CONC 32 g/dL (32.3-35.6); MEAN CORPUSCULAR VOLUME 89.7 fL (75.5-95.3); MONOCYTES # (AUTO) 0.1 K/uL (2.0-10.0); MONOCYTES % (AUTO) 3.5 % (0.0-11.0); NEUTROPHILS # (AUTO) 3.1 K/uL (1.8-8.9); NEUTROPHILS % (AUTO) 84.6 % (38.5-71.5); PLATELET COUNT (AUTO) 253 K/uL (179-408); RED BLOOD CELL COUNT(AUTO) 4.28 MIL/uL (3.63-4.92); WHITE BLOOD COUNT (AUTO) 3.7 K/uL (3.8-11.8)
[2018-09-16 08:41] LABS: CARBON DIOXIDE 34 mmol/L (21-32); CHLORIDE 102 mmol/L (98-107); GLUCOSE 122 mg/dL (74-106); MAGNESIUM 2.4 mg/dL (1.8-2.4); PHOSPHOROUS 2.5 mg/dL (2.5-4.9); UREA NITROGEN, BLOOD 39 mg/dL (7-18)
[2018-09-16] MEDS: CEFTRIAXONE 1 G in IV DEXTROSE 5% 50 ML IV SCH (08:49)
[2018-09-16] MEDS: CULTURELLE CAPSULE PO SCH ×2 (08:51→21:09)
[2018-09-16] MEDS: GABAPENTIN 100 MG CAPSULE PO SCH ×2 (08:51→16:50)
[2018-09-16] MEDS: DORZOLAMIDE 2% OPHT DROP 10 ML BOTTLE EACHEYE SCH ×3 (08:51→16:51)
[2018-09-16] MEDS: CLOPIDOGREL 75 MG TABLET PO SCH (08:51)
[2018-09-16] MEDS: DULOXETINE 60 MG CAPSULE.DR PO SCH (08:51)
--- NOTE | 2018-09-16 09:29 | NUR ---
- PO intake very poor at this time due to respiratory therapies and patient condition. Continue pureed diet with Ensure Enlive ONS, and monitor for PO improvement. - Recommend adding multivitamin qd, Vitamin C 500 mg BID, ZnSO4 220 mg qd to aid in pressure wound healing. - Noted hypoactive bowel sounds and no BM since admit, monitor GI health. - Monitor PO intake, GI/LBM, labs as available, skin integrity, weight. Addendum: 09/16/18 at [address] Amended: Links added.
[2018-09-16] MEDS: AZITHROMYCIN IV 250 MG in IV DEXTROSE 5% 250 ML IV SCH (09:39)
--- NOTE | 2018-09-16 13:12 | NUR ---
Pt seen,examined by .
--- NOTE | 2018-09-16 16:15 | NUR ---
pT MEDICATED WITH MORPHINE 1MG iv C/O GENERALIZED PAIN.pT DAUGHTER CALLED,UPDATED ON PT STATUS.
--- NOTE | 2018-09-16 18:06 | NUR ---
Spoke with ,updated on pt condition.New orders received.
--- NOTE | 2018-09-16 18:49 | NUR ---
Pt transferred to room 307 telemetry.Pt family at bedside.
--- NOTE | 2018-09-16 19:14 | NUR ---
rounds made patient in bed awake tolerating 02 nasal cannula at 2 l min . saturation 95% rr 19. no respiratory distress noted .breathing even and unlabored .
--- NOTE | 2018-09-16 20:00 | NUR ---
patient verbalized that patient is on Prevacid at home . called md hall and he ordered pantoprazole 40 mg Po,one dose now to start .
[2018-09-16] MEDS ORDERED: PANTOPRAZOLE SODIUM 40 MG TABLET.DR PO ONE (20:49)
[2018-09-16] MEDS: ATORVASTATIN 10 MG TABLET PO SCH (21:10)
[2018-09-16] MEDS: ENOXAPARIN SODIUM 30 MG/0.3 ML DISP.SYRIN SQ SCH (21:11)
[2018-09-16] MEDS: LATANOPROST OPHT DROP 2.5 ML BOTTLE EACHEYE SCH (21:12)
--- NOTE | 2018-09-16 21:30 | NUR ---
due medication crushed , hob up aspiration precaution observed ,patient tolerated medication with applesauce with little sips water .
--- NOTE | 2018-09-16 22:00 | NUR ---
patient verbalized right lower abdomen pain ,about 8/10 given morphine 1 mg ivp prn and advised to call if pain not resolve patient daughter at bedside .
--- NOTE | 2018-09-16 23:47 | NUR ---
Per request of pt's and daughter, Pt placed on Respironics V-60 AVAPS mode at this time for sleep. Per MD TOWBOAT CAPTAIN the prescribed AVAPS setting orders are; set resp. rate 12, tidal volume 45, EPAP 4, PSV 5-25 (Low P 10, High P 30) and FIO2-30%. Pt appears to be tolerating AVAPS well. Pt to be monitored for the duration of the shift. BVM is at bedside.
--- NOTE | 2018-09-17 00:30 | NUR ---
CALLED RESPIRATORY THERAPIST PATIENT AND PATIENT WANTS AVAPS REMOVE EXPLAIN THE BENEFIT OF HAVING THE AVAPS AND MD WANTS IT AT NIGHT STRONGLY DISAGREES , SATURATION AT THIS TIME 95 TO 96 % ON 2 LITER .
--- NOTE | 2018-09-17 00:58 | NUR ---
Per family and pt request, AVAPS removed from pt. Pt subsequently placed back on 2LNC. No resp. distress noted.
[2018-09-17] MEDS: ACETAMINOPHEN 325 MG TABLET PO PRN ×3 (01:09→20:21)
[2018-09-17 02:19] VITALS: BP 105/54
[2018-09-17] MEDS: PANTOPRAZOLE SODIUM 40 MG TABLET.DR PO SCH (06:35)
[2018-09-17] MEDS: methylPREDNISolone SOD SUCC 40 MG/ML VIAL IV SCH ×3 (06:35→21:23)
[2018-09-17 06:48] LABS: BASOPHILS % (AUTO) 0.1 % (0.0-2.0); HEMATOCRIT 36.5 % (31.2-41.9); HEMOGLOBIN 11.4 g/dL (10.9-14.3); LYMPHOCYTES # (AUTO) 0.5 K/uL (20.0-40.0); LYMPHOCYTES % (AUTO) 10.7 % (20.5-51.5); MEAN CORPUSCULAR HEMOGLOBIN 27.9 uug (24.7-32.8); MEAN CORPUSCULAR HGB CONC 31 g/dL (32.3-35.6); MEAN CORPUSCULAR VOLUME 89.1 fL (75.5-95.3); MONOCYTES # (AUTO) 0.3 K/uL (2.0-10.0); MONOCYTES % (AUTO) 6.1 % (0.0-11.0); NEUTROPHILS # (AUTO) 3.9 K/uL (1.8-8.9); NEUTROPHILS % (AUTO) 83.1 % (38.5-71.5); PLATELET COUNT (AUTO) 249 K/uL (179-408); RED BLOOD CELL COUNT(AUTO) 4.09 MIL/uL (3.63-4.92); WHITE BLOOD COUNT (AUTO) 4.7 K/uL (3.8-11.8)
[2018-09-17 07:02] LABS: ALANINE AMINOTRANSFERASE 17 U/L (14-59); ALKALINE PHOSPHATASE 67 U/L (50-136); ASPARTATE AMINOTRANSFERASE 25 U/L (15-37); BILIRUBIN,TOTAL 0.3 mg/dL (0.2-1.0); CARBON DIOXIDE 31 mmol/L (21-32); CHLORIDE 100 mmol/L (98-107); CREATININE 0.7 mg/dL (0.6-1.3); GLUCOSE 109 mg/dL (74-106); MAGNESIUM 2.4 mg/dL (1.8-2.4); PHOSPHOROUS 3.1 mg/dL (2.5-4.9); POTASSIUM 3.5 mmol/L (3.5-5.1); TOTAL PROTEIN, SERUM 6.8 g/dL (6.4-8.2); UREA NITROGEN, BLOOD 33 mg/dL (7-18)
[2018-09-17] MEDS: ALBUTEROL SULFATE 2.5 MG/3 ML NEBU NEB SCH ×4 (07:09→19:10)
[2018-09-17] MEDS: IPRATROPIUM BROMIDE 0.5 MG/2.5 ML NEBU NEB SCH ×4 (07:09→19:10)
--- NOTE | 2018-09-17 07:20 | NUR ---
RECEIVED PATIENT IN BED LAYING COMFORTABLY , WITH HOB ELEVATED. SIDE RAILS UP X2, BED ON LOW POSITIONS, NO SOB, NO PAIN NOTED AT THIS TIME. IV INTACT AND PATENT, WILL CONTINUE TREATMENT PLAN AND CONTINUE TO MONITOR.
[2018-09-17] MEDS: MORPHINE SULFATE 2 MG/1 ML DISP.SYRIN IV PRN ×3 (09:22→23:28)
[2018-09-17] MEDS: CULTURELLE CAPSULE PO SCH ×2 (09:30→21:23)
[2018-09-17] MEDS: DORZOLAMIDE 2% OPHT DROP 10 ML BOTTLE EACHEYE SCH ×3 (09:30→17:21)
[2018-09-17] MEDS: DULOXETINE 60 MG CAPSULE.DR PO SCH (09:30)
[2018-09-17] MEDS: GABAPENTIN 100 MG CAPSULE PO SCH ×2 (09:30→17:21)
[2018-09-17] MEDS: CLOPIDOGREL 75 MG TABLET PO SCH (09:30)
[2018-09-17] MEDS: CEFTRIAXONE 1 G in IV DEXTROSE 5% 50 ML IV SCH (09:37)
[2018-09-17] MEDS: AZITHROMYCIN IV 250 MG in IV DEXTROSE 5% 250 ML IV SCH (09:44)
[2018-09-17 10:08] LABS: LYMPHOCYTES % (MANUAL) 9 % (20-40); METAMYELOCYTES % 1 % (0-1); MONOCYTES % (MANUAL) 6 % (2-10); NEUTROPHILS % (MANUAL) 84 % (42-75)
[2018-09-17] MEDS ORDERED: FLEET ENEMA 133 ML BOTTLE RC PRN (10:45)
[2018-09-17 11:34] VITALS: BP 122/64
[2018-09-17 15:03] VITALS: BP 110/53
--- NOTE | 2018-09-17 18:23 | NUR ---
PATIENT IN BED LAYING COMFORTABLY WITH HOB ELEVATE AT 35 DEGREE. CAREGIVER AT BEDSIDE. BED IN LOW POSITION, SIDE RAIL UP X2 . NO SOB, NO PAIN NOTED AT THIS TIME. MIDLINE ON THE RIGHT BRACHIAL INTACT AND PATENT, WILL CONTINUE TREATMENT PLAN AND CONTINUE TO MONITOR WITH E AMMONIA PRINT OPERATOR NURSE.
--- NOTE | 2018-09-17 19:30 | NUR ---
RECEIVED PATIENT RESTING COMFORTABLY IN BED WITH AT BEDSIDE. NO SIGNS OF ACUTE DISTRESS NOTED. NO COMPLAINTS OF SOB. MIDLINE ON THE RIGHT BRACHIAL IS INTACT AND PATENT. COE CATH IS INTACT AND DRAINING CLEAR, YELLOW URINE. SAFETY MEASURES INITIATED. BED IS LOW AND LOCKED, CALL LIGHT IS WITHIN REACH. WILL CONTINUE TO MONITOR.
[2018-09-17 20:43] VITALS: BP 105/54
[2018-09-17] MEDS: ENOXAPARIN SODIUM 30 MG/0.3 ML DISP.SYRIN SQ SCH (21:21)
[2018-09-17] MEDS: ATORVASTATIN 10 MG TABLET PO SCH (21:23)
[2018-09-17] MEDS: LATANOPROST OPHT DROP 2.5 ML BOTTLE EACHEYE SCH (21:23)
[2018-09-18 00:23] VITALS: BP 104/56
--- NOTE | 2018-09-18 00:27 | NUR ---
Pt placed on Respironics V-60 AVAPS mode at this time for sleep. Per MD MINE SURVEYOR the prescribed AVAPS setting orders are; set resp. rate 12, tidal volume 45, EPAP 4, PSV 5-25 and FIO2-30%. Pt appears to be tolerating AVAPS well. Pt to be monitored for the duration of the shift. BVM is at bedside.
--- NOTE | 2018-09-18 01:50 | NUR ---
Per family request, pt removed from AVAPS at this time and placed back on 2LNC. Pt is in no resp. distress. RN MT aware and notified.
[2018-09-18 05:31] VITALS: BP 124/67
[2018-09-18] MEDS: MORPHINE SULFATE 2 MG/1 ML DISP.SYRIN IV PRN ×2 (05:38→11:33)
[2018-09-18] MEDS: methylPREDNISolone SOD SUCC 40 MG/ML VIAL IV SCH (05:38)
--- NOTE | 2018-09-18 06:04 | NUR ---
Patient slept well throughout shift. was at bedside. Patient was able to eat some food. No acute distress noted. No complaints of SOB or dyspnea. Complained of pain, gave PRN pain medications x2 and was effective. Midline on right brachial is intact and patent. Sloan cath is intact and draining clear, yellow urine. All medications given as ordered and tolerated well. All needs were met. Safety measures given.
[2018-09-18] MEDS: IPRATROPIUM BROMIDE 0.5 MG/2.5 ML NEBU NEB SCH ×3 (07:06→14:48)
[2018-09-18] MEDS: ALBUTEROL SULFATE 2.5 MG/3 ML NEBU NEB SCH ×3 (07:07→14:48)
[2018-09-18] MEDS: PANTOPRAZOLE SODIUM 40 MG TABLET.DR PO SCH (07:20)
[2018-09-18 07:26] LABS: HEMATOCRIT 34.6 % (31.2-41.9); HEMOGLOBIN 10.9 g/dL (10.9-14.3); LYMPHOCYTES # (AUTO) 0.3 K/uL (20.0-40.0); MEAN CORPUSCULAR HEMOGLOBIN 28.2 uug (24.7-32.8); MEAN CORPUSCULAR HGB CONC 31 g/dL (32.3-35.6); MEAN CORPUSCULAR VOLUME 89.9 fL (75.5-95.3); MONOCYTES # (AUTO) 0.2 K/uL (2.0-10.0); MONOCYTES % (AUTO) 5.6 % (0.0-11.0); NEUTROPHILS # (AUTO) 2.9 K/uL (1.8-8.9); NEUTROPHILS % (AUTO) 84.4 % (38.5-71.5); PLATELET COUNT (AUTO) 213 K/uL (179-408); RED BLOOD CELL COUNT(AUTO) 3.85 MIL/uL (3.63-4.92); WHITE BLOOD COUNT (AUTO) 3.4 K/uL (3.8-11.8)
[2018-09-18 07:33] LABS: CARBON DIOXIDE 34 mmol/L (21-32); CHLORIDE 100 mmol/L (98-107); CREATININE 0.8 mg/dL (0.6-1.3); GLUCOSE 141 mg/dL (74-106); MAGNESIUM 2.2 mg/dL (1.8-2.4); POTASSIUM 3.7 mmol/L (3.5-5.1); UREA NITROGEN, BLOOD 36 mg/dL (7-18)
[2018-09-18 07:48] LABS: LYMPHOCYTES % (MANUAL) 15 % (20-40); MONOCYTES % (MANUAL) 5 % (2-10); NEUTROPHILS % (MANUAL) 80 % (42-75)
[2018-09-18] MEDS: DORZOLAMIDE 2% OPHT DROP 10 ML BOTTLE EACHEYE SCH ×2 (08:44→13:13)
[2018-09-18] MEDS: ACETAMINOPHEN 325 MG TABLET PO PRN (08:45)
[2018-09-18] MEDS: CEFTRIAXONE 1 G in IV DEXTROSE 5% 50 ML IV SCH (08:45)
[2018-09-18] MEDS: CULTURELLE CAPSULE PO SCH (08:45)
[2018-09-18] MEDS: GABAPENTIN 100 MG CAPSULE PO SCH (08:45)
[2018-09-18] MEDS: CLOPIDOGREL 75 MG TABLET PO SCH (08:45)
[2018-09-18] MEDS: DULOXETINE 60 MG CAPSULE.DR PO SCH (08:45)
[2018-09-18 11:30] VITALS: BP 129/69
[2018-09-18] MEDS ORDERED: TRAZ-214 PO (11:34)
[2018-09-18] MEDS ORDERED: FLUC200T PO (11:34)
[2018-09-18] MEDS ORDERED: DULO30CA2 PO (11:34)
[2018-09-18] MEDS ORDERED: DULO60CA45 PO (11:34)
[2018-09-18] MEDS ORDERED: GABA-532 PO (11:34)
[2018-09-18] MEDS ORDERED: FURO-152 PO (11:34)
[2018-09-18] MEDS ORDERED: PRED20TA PO (11:34)
[2018-09-18] MEDS ORDERED: NITR50CA4 PO (11:34)
[2018-09-18] MEDS ORDERED: LACT1CAP72 PO (11:34)
[2018-09-18] MEDS ORDERED: CEPH-569 PO (11:34)
--- NOTE | 2018-09-18 13:21 | NUR ---
was at bedside in the am. Patient was able to eat some food with daughter, evaluation is done by speech. No acute distress this shift . No complaints of SOB or dyspnea. Complained of pain, gave PRN pain medications x1 and was effective patient was able to sleep a little bit. Midline on right brachial is intact and patent. Sloan cath is intact and draining clear, yellow urine. safety reinforced eligibility supervisor scheduled at 3.30 Prescription is given and documents for discharge signed and hard copy given to the patient
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
--- NOTE | 2018-09-18 16:14 | NUR ---
Patient is discharged and going home by ambulance with her caregiver and supervision F/C removed and patient voided in diaper, midline removed, orders cared out, teaching is done to her and health careers instructor. Prescription is in the folder with discharge paperwork is given to her Safety maintained
[2018-09-18] MEDS ORDERED: methylPREDNISolone SOD SUCC 40 MG/ML VIAL IV SCH (21:00)
== END 2018-09-18 16:10 | disposition home health service (06) | DRG 189 ==
LOC: ER 09:25 → CCU 11:23 → TELE3 09-16 18:30
PROVIDERS: ADMIT Nurse Practitioner Acute Care; ATTEND Nurse Practitioner Acute Care
PROC: 5A09457 Assistance with Respiratory Ventilation, 24-96 Consecutive Hours, Continuous Positive Airway Pressure (ICD-10-PCS; principal; 2018-09-14)
PROC: 05HY33Z Insertion of Infusion Device into Upper Vein, Percutaneous Approach (ICD-10-PCS; 2018-09-17)
DX: J96.21 Acute and chronic respiratory failure with hypoxia (principal); R53.2 Functional quadriplegia; J15.9 Unspecified bacterial pneumonia; I50.33 Acute on chronic diastolic (congestive) heart failure; N17.0 Acute kidney failure with tubular necrosis; J44.0 Chronic obstructive pulmonary disease with (acute) lower respiratory infection; G91.9 Hydrocephalus, unspecified; G93.40 Encephalopathy, unspecified; E87.2 Acidosis; J44.1 Chronic obstructive pulmonary disease with (acute) exacerbation; J20.9 Acute bronchitis, unspecified; J96.22 Acute and chronic respiratory failure with hypercapnia; Z99.81 Dependence on supplemental oxygen; G35 Multiple sclerosis; I25.2 Old myocardial infarction; I25.10 Atherosclerotic heart disease of native coronary artery without angina pectoris; Z98.2 Presence of cerebrospinal fluid drainage device; Z87.891 Personal history of nicotine dependence; Z90.710 Acquired absence of both cervix and uterus; Z87.440 Personal history of urinary (tract) infections; Z87.311 Personal history of (healed) other pathological fracture; Z74.01 Bed confinement status; M81.0 Age-related osteoporosis without current pathological fracture; M06.9 Rheumatoid arthritis, unspecified; J84.10 Pulmonary fibrosis, unspecified; E87.5 Hyperkalemia; D32.9 Benign neoplasm of meninges, unspecified; I11.0 Hypertensive heart disease with heart failure
CPT/HCPCS: 36415; 36569; 36600; 70030-TC; 71045; 83605; 83735; 84100; 84443; 85025; 85730; 87040; 87070; 87077; 87086; 87400; 92526; 92610; 93005; 93307; 94640; 94660; 94664; A4663; C1758; G0378; J0456; J0696; J1650; J1956; J2060; J2270; J2405; J2920; J2930; J3370; J3475; J3490; J3590; J7060

== ENCOUNTER 2019-01-11 03:26 | Inpatient (IN) | payer MEDICARE, MEDICAID ==
[~2019-01-11] VITALS: Ht 152.4 cm; Wt 38.6 kg
[~2019-01-11 03:26] MED LIST changes: +CEPH-569 PO; +DULO30CA2 PO; -FLUC100T8 PO; +FLUC200T PO; +FURO-152 PO; +NITR50CA4 PO; +PRED20TA PO; +TRAZ-214 PO
[2019-01-11] MEDS ORDERED: GABA-532 PO (03:43)
[2019-01-11] MEDS ORDERED: PANTOPRAZOLE SODIUM 40 MG VIAL IV ONE (04:00)
[2019-01-11] MEDS ORDERED: IV NORMAL SALINE 1000 ML BAG IV ONE (04:00)
[2019-01-11] MEDS ORDERED: ONDANSETRON 4 MG/2 ML VIAL IV ONE (04:00)
[2019-01-11] MEDS ORDERED: MORPHINE SULFATE 2 MG/1 ML DISP.SYRIN IV ONE (04:00)
[2019-01-11] MEDS ORDERED: MORPHINE SULFATE 2 MG/1 ML DISP.SYRIN ONE (04:02)
[2019-01-11] MEDS ORDERED: PANTOPRAZOLE SODIUM 40 MG VIAL ONE (04:04)
[2019-01-11] MEDS ORDERED: ONDANSETRON 4 MG/2 ML VIAL ONE ×2 (04:04→08:36)
[2019-01-11 04:31] LABS: BASOPHILS % (AUTO) 0.4 % (0.0-2.0); EOSINOPHILS % (AUTO) 0.3 % (0.0-7.0); HEMATOCRIT 36.8 % (31.2-41.9); HEMOGLOBIN 11.8 g/dL (10.9-14.3); LYMPHOCYTES # (AUTO) 0.8 K/uL (20.0-40.0); LYMPHOCYTES % (AUTO) 9.6 % (20.5-51.5); MEAN CORPUSCULAR HEMOGLOBIN 28.8 uug (24.7-32.8); MEAN CORPUSCULAR HGB CONC 32 g/dL (32.3-35.6); MONOCYTES # (AUTO) 0.3 K/uL (2.0-10.0); NEUTROPHILS # (AUTO) 7.1 K/uL (1.8-8.9); NEUTROPHILS % (AUTO) 85.7 % (38.5-71.5); PLATELET COUNT (AUTO) 228 K/uL (179-408); RED BLOOD CELL COUNT(AUTO) 4.09 MIL/uL (3.63-4.92); WHITE BLOOD COUNT (AUTO) 8.3 K/uL (3.8-11.8)
[2019-01-11 04:38] LABS: CARBON DIOXIDE 27 mmol/L (21-32); CHLORIDE 100 mmol/L (98-107); CREATININE 0.6 mg/dL (0.6-1.3); GLUCOSE 146 mg/dL (74-106); POTASSIUM 4.3 mmol/L (3.5-5.1); UREA NITROGEN, BLOOD 24 mg/dL (7-18)
[2019-01-11 04:43] LABS: ALANINE AMINOTRANSFERASE 10 U/L (14-59); ALKALINE PHOSPHATASE 84 U/L (50-136); ASPARTATE AMINOTRANSFERASE 17 U/L (15-37); BILIRUBIN,DIRECT 0.1 mg/dL (0.0-0.2); BILIRUBIN,TOTAL 0.4 mg/dL (0.2-1.0); LIPASE 160 U/L (73-393); TOTAL PROTEIN, SERUM 7.4 g/dL (6.4-8.2)
[2019-01-11] MEDS ORDERED: ONDANSETRON 4 MG/2 ML VIAL IV STA (08:31)
[2019-01-11 09:10] VITALS: BP 119/61
[2019-01-11] MEDS ORDERED: ONDANSETRON 4 MG/2 ML VIAL IV PRN (10:15)
[2019-01-11] MEDS ORDERED: MAGNESIUM HYDROXIDE 30 ML LIQUID UDC PO PRN (10:15)
[2019-01-11] MEDS: IV NS 1000 ML 1,000 ML IV PRN ×2 (10:55→22:07)
[2019-01-11] MEDS ORDERED: BARIUM SULFATE 450 ML ORAL.SUSP ONE (11:09)
[2019-01-11] MEDS ORDERED: DIATR MEGLU/DIATRIZOATE SODIUM 30 ML SOLUTION ONE (11:10)
[2019-01-11 11:35] VITALS: BP 118/59
[2019-01-11] MEDS ORDERED: Z GUARD REMEDY PASTE 57 GM TUBE TOP PRN (14:15)
[2019-01-11 15:38] VITALS: BP 134/57
[2019-01-11 20:00] VITALS: BP 116/53
[2019-01-12] MEDS: MORPHINE SULFATE 2 MG/1 ML DISP.SYRIN IV PRN ×2 (00:47→13:19)
[2019-01-12 06:31] VITALS: BP 131/54
[2019-01-12 07:37] LABS: CARBON DIOXIDE 25 mmol/L (21-32); CHLORIDE 114 mmol/L (98-107); CHOLESTEROL 113 mg/dL (<200); CREATININE 0.5 mg/dL (0.6-1.3); GLUCOSE 76 mg/dL (74-106); HDL CHOLESTEROL 47 mg/dL (40-60); MAGNESIUM 1.5 mg/dL (1.8-2.4); PHOSPHOROUS 2.5 mg/dL (2.5-4.9); POTASSIUM 3.2 mmol/L (3.5-5.1); TRIGLYCERIDES 103 MG/DL (30-150); UREA NITROGEN, BLOOD 20 mg/dL (7-18)
[2019-01-12 07:52] LABS: BASOPHILS % (AUTO) 0.7 % (0.0-2.0); EOSINOPHILS # (AUTO) 0.1 K/uL (0.0-0.7); EOSINOPHILS % (AUTO) 1.6 % (0.0-7.0); LYMPHOCYTES # (AUTO) 1.6 K/uL (20.0-40.0); LYMPHOCYTES % (AUTO) 24.9 % (20.5-51.5); MEAN CORPUSCULAR HEMOGLOBIN 28.6 uug (24.7-32.8); MEAN CORPUSCULAR HGB CONC 30 g/dL (32.3-35.6); MEAN CORPUSCULAR VOLUME 94.1 fL (75.5-95.3); MONOCYTES # (AUTO) 0.5 K/uL (2.0-10.0); MONOCYTES % (AUTO) 7.6 % (0.0-11.0); NEUTROPHILS # (AUTO) 4.2 K/uL (1.8-8.9); NEUTROPHILS % (AUTO) 65.2 % (38.5-71.5); RED BLOOD CELL COUNT(AUTO) 3.46 MIL/uL (3.63-4.92); THYROID STIMULATING HORMONE 0.732 mIU/mL (0.358-3.740); WHITE BLOOD COUNT (AUTO) 6.4 K/uL (3.8-11.8)
[2019-01-12 07:54] LABS: HEMATOCRIT 32.6 % (31.2-41.9); HEMOGLOBIN 9.9 g/dL (10.9-14.3); PLATELET COUNT (AUTO) 162 K/uL (179-408)
[2019-01-12] MEDS: IV NS 1000 ML 1,000 ML IV PRN (08:10)
[2019-01-12] MEDS ORDERED: FAMOTIDINE. 20 MG/2 ML VIAL IV SCH (09:00)
[2019-01-12] MEDS ORDERED: PANTOPRAZOLE SODIUM 40 MG VIAL IV SCH (09:00)
[2019-01-12] MEDS: MAGNESIUM SULFATE/D5W 100 ML IV SCH ×2 (10:03→11:30)
[2019-01-12 11:35] VITALS: BP 133/68
[2019-01-12] MEDS: POTASSIUM CHLORIDE 50 ML IV SCH ×2 (13:18→14:30)
[2019-01-12 15:28] VITALS: BP 123/69
== END 2019-01-12 17:10 | disposition home or self-care (01) | DRG 388 ==
LOC: ER 03:29 → MEDSURG3 08:12
DX: K56.600 Partial intestinal obstruction, unspecified as to cause (principal); R53.2 Functional quadriplegia; J96.10 Chronic respiratory failure, unspecified whether with hypoxia or hypercapnia; G93.40 Encephalopathy, unspecified; R18.8 Other ascites; I31.3 Pericardial effusion (noninflammatory); J98.11 Atelectasis; G35 Multiple sclerosis; Z99.81 Dependence on supplemental oxygen; J43.9 Emphysema, unspecified; J84.10 Pulmonary fibrosis, unspecified; M06.9 Rheumatoid arthritis, unspecified; L89.229 Pressure ulcer of left hip, unspecified stage; L89.219 Pressure ulcer of right hip, unspecified stage; L89.159 Pressure ulcer of sacral region, unspecified stage; Z98.2 Presence of cerebrospinal fluid drainage device; M80.88XD Other osteoporosis with current pathological fracture, vertebra(e), subsequent encounter for fracture with routine healing; K80.20 Calculus of gallbladder without cholecystitis without obstruction; I50.9 Heart failure, unspecified; I70.0 Atherosclerosis of aorta; I25.10 Atherosclerotic heart disease of native coronary artery without angina pectoris; E86.0 Dehydration; Z79.899 Other long term (current) drug therapy; Z86.011 Personal history of benign neoplasm of the brain; Z87.440 Personal history of urinary (tract) infections; Z90.710 Acquired absence of both cervix and uterus
CPT/HCPCS: 36415; 70030-TC; 71045; 74018; 74250; 83690; 83735; 84100; 84443; 85025; 85730; 93005; A4663; C9113; G0378; J2270; J2405; J3475; J3480; J3490; J7030; J7050; Q9951; Q9963

== ENCOUNTER 2019-02-15 23:58 | Inpatient (IN) | payer MEDICARE, MEDICAID ==
[~2019-02-15] VITALS: Ht 152.4 cm; Wt 59.2 kg
[~2019-02-15 23:58] MED LIST changes: -CEPH-569 PO; -DULO30CA2 PO; -FLUC200T PO; -FURO-152 PO; -LACT1CAP72 PO; -NITR50CA4 PO; -PRED20TA PO
[2019-02-16] VITALS (20 sets, daily range): BP systolic 106–164; BP diastolic 44–117
--- NOTE | 2019-02-16 00:05 | NUR ---
OLMAN RA 81 FROM HOME WITH CONCERNS OF LOW O2 PER FAMILY. PATIENT HAS MULTIPLE WOUNDS AND SEEN BY WOUND CARE, FINISHING COURSE OF ANTIBIOTICS AT THIS TIME. PATIENT IS LETHARGIC, PLACED ON MONITOR, CURRENTLY ON 10L O2 VIA REBREATHER SATTING 99%.
--- NOTE | 2019-02-16 00:13 | NUR ---
DR. DUARTE AT BEDSIDE FOR MSE.
[2019-02-16] MEDS ORDERED: VANCOMYCIN 1G/D5W 200 ML PIGGYBACK IV ONE (00:30)
[2019-02-16] MEDS ORDERED: AZITHROMYCIN IV 500 MG in IV DEXTROSE 5% 250 ML IV ONE (00:30)
[2019-02-16] MEDS ORDERED: PIPERACILLIN SODIUM/TAZOBACTAM 3.375 G in IV DEXTROSE 5% 50 ML IV ONE (00:30)
[2019-02-16] MEDS ORDERED: PIPERACILLIN/TAZOBACTAM/D5W 50 ML IV ONE ×2 (00:42→05:20)
[2019-02-16 00:43] LABS: BASOPHILS % (AUTO) 0.5 % (0.0-2.0); EOSINOPHILS # (AUTO) 0.2 K/uL (0.0-0.7); HEMATOCRIT 38.4 % (31.2-41.9); HEMOGLOBIN 11.6 g/dL (10.9-14.3); LYMPHOCYTES # (AUTO) 1.4 K/uL (20.0-40.0); LYMPHOCYTES % (AUTO) 17.3 % (20.5-51.5); MEAN CORPUSCULAR HEMOGLOBIN 29.2 uug (24.7-32.8); MEAN CORPUSCULAR HGB CONC 30 g/dL (32.3-35.6); MEAN CORPUSCULAR VOLUME 96.5 fL (75.5-95.3); MONOCYTES # (AUTO) 0.7 K/uL (2.0-10.0); MONOCYTES % (AUTO) 8.3 % (0.0-11.0); NEUTROPHILS # (AUTO) 5.8 K/uL (1.8-8.9); NEUTROPHILS % (AUTO) 71.9 % (38.5-71.5); PLATELET COUNT (AUTO) 200 K/uL (179-408); RED BLOOD CELL COUNT(AUTO) 3.98 MIL/uL (3.63-4.92)
[2019-02-16 00:53] LABS: CARBON DIOXIDE 35 mmol/L (21-32); CHLORIDE 103 mmol/L (98-107); CREATININE 0.7 mg/dL (0.6-1.3); GLUCOSE 119 mg/dL (74-106); POTASSIUM 4.8 mmol/L (3.5-5.1); UREA NITROGEN, BLOOD 54 mg/dL (7-18)
[2019-02-16 01:03] LABS: *BILIRUBIN,URIN NEGATIVE (NEGATIVE); *BLOOD, URINE 1+ (NEGATIVE); *CLARITY,URINE CLOUDY (CLEAR); *COLOR,URINE YELLOW (YELLOW); *KETONES,URINE NEGATIVE (NEGATIVE); *UROBILINOGEN,URINE 0.2 E.U./dl (NORMAL); LEUKOCYTE ESTERASE ,URINE 3+ (NEGATIVE); NITRITE, URINE NEGATIVE (NEGATIVE); PH,URINE 5.5 (5.0-8.0); UGLUCOSE NEGATIVE (NEGATIVE)
[2019-02-16 01:06] LABS: ALANINE AMINOTRANSFERASE 10 U/L (14-59); ALKALINE PHOSPHATASE 77 U/L (50-136); ASPARTATE AMINOTRANSFERASE 18 U/L (15-37); BILIRUBIN,DIRECT 0.1 mg/dL (0.0-0.2); BILIRUBIN,TOTAL 0.2 mg/dL (0.2-1.0); TOTAL PROTEIN, SERUM 7.1 g/dL (6.4-8.2)
[2019-02-16 01:09] LABS: ACETAMINOPHEN < 2.0 ug/mL (10-30)
[2019-02-16 01:15] LABS: THYROID STIMULATING HORMONE 0.996 mIU/mL (0.358-3.740)
[2019-02-16 01:18] LABS: BACTERIA,URINE FEW /HPF (NONE SEEN); SQUAMOUS EPITHELIAL CELL,UR MODERATE /HPF (NONE SEEN); WBC,URINE TNTC /HPF (0-3)
[2019-02-16 01:21] LABS: ABG BASE EXCESS 2.3 mmol/L; ABG PCO2 92.1 mmHg (35.0-45.0); ABG PH 7.172 (7.350-7.450); ABG PO2 54.7 mmHg (75.0-100.0); ABG SITE RIGHT RADIAL; ABG TOTAL HEMOGLOBIN 11.2 G/dL (12.0-16.0); COHb 1.6 % (0.5-1.5); MetHb 0.3 % (0.0-1.5); O2Hb 83.7 % (94.0-97.0); VENT MODE Nasal Cannula
[2019-02-16] MEDS ORDERED: AZITHROMYCIN 500MG/ D5W 250ML IVPB **ER PYXIS ONLY IV ONE (01:29)
--- NOTE | 2019-02-16 01:35 | NUR ---
PATIENT HAS WOUND ON BRI HIPS, COCCYX AND ON NECK, ACCORDING TO FAMILY, PATIENT WAS SEEN BY WOUND CARE NURSE AND HAS MEDICATED DRESSING TO BE REMOVED TOMORROW. FAMILY REFUSED FOR ME TO OPEN DRESSING TO ASSESS WOUNDS.
--- NOTE | 2019-02-16 01:41 | NUR ---
EPIC PAGED, PEGGY GONCALVES MD WATER LEAK REPAIRER.
[2019-02-16] MEDS ORDERED: IV NS 1000 ML 1,000 ML IV ONE (02:00)
[2019-02-16] MEDS ORDERED: IV NORMAL SALINE 250 ML IV ONE (02:00)
--- NOTE | 2019-02-16 02:06 | NUR ---
PATIENT WITH ONLY ONE IV LINE, ANTIBIOTIC PUT ON HOLD AT THIS TIME, AND BOLUS OF 250ML STARTED PER DR. DUARTE.
--- NOTE | 2019-02-16 02:22 | NUR ---
DR. GONCALVES CALLED BACK AND SPOKE WITH DR. DUARTE. DR GONCALVES WILL BE COMING TO ER TO EVALUATE PATIENT. WILL HOLD PATIENT HERE UNTIL MD ARRIVES PER DR. DUARTE.
--- NOTE | 2019-02-16 02:27 | NUR ---
PT IN ER, ON 100% NRB MASK, 100%, PT NOT VERY RESPONSIVE, PT PLACED ON BI/PAP WITH SETTINGS, 15/5, PSV 10, RATE 16, 50%, TITRATE, PT ON APPROX, 0009, THEN PT PULLED OFF MASK AT 0100, PT PLACED ON O2 @ 3L/M NC, THEN PT BACK ON @ 0115, BI/PAP SETTINGS, 15/5 , RR20 , 50% , WITH MED MASK, PT GOING TO CCU APPROX. 0235 . Aung FOSTER LIBRARY CONSULTANT Addendum: 02/16/19 at 0231 by JUMANA FOSTER RT Amended: Links added.
[2019-02-16] MEDS ORDERED: GABA-532 PO ×2 (02:29)
--- NOTE | 2019-02-16 02:36 | NUR ---
SECOND IV LINE ESTABLISHED, ANTIBIOTIC CONTINUED.
--- NOTE | 2019-02-16 02:36 | NUR ---
MRSA COLLECTED, SENT TO LAB.
--- NOTE | 2019-02-16 02:40 | NUR ---
PEGGY GONCALVES N.P. AT BEDSIDE AT THIS TIME.
--- NOTE | 2019-02-16 02:51 | NUR ---
Pt. admitted to CCU , under care of PEGGY GONCALVES N.P. Belongs List completed. MRSA DONE
[2019-02-16] MEDS ORDERED: IV NS 1000 ML 1,000 ML IV PRN (03:30)
[2019-02-16] MEDS ORDERED: IPRATROPIUM BROMIDE 0.5 MG/2.5 ML NEBU NEB SCH (03:30)
[2019-02-16] MEDS ORDERED: VANCOMYCIN IV 200 ML ONE (03:56)
--- NOTE | 2019-02-16 04:00 | NUR ---
ADMITTED PT FROM ER VIA [facility] W/ ADM. DX OF EARLY SEPSIS SECONDARY TO ACUTE RESP. FAILURE. PT. SPEAKS FARSI. DAUGHTER AT BEDSIDE TO EVALUATE PT. NEEDS. HEP LOCK INTACT ON R HAND & L HAND , BOTH ARE PATENT. ON BIPAP W/ SETTINGS OF I-15/E-5, RATE-20, FIO2-50% W/ O2 SAT OF 100%. AM CARE DONE & REPOSITIONED ON HER SIDE W/ HOB ELEVATED. BP STABLE. AFEBRILE. NOT IN ANY DISTRESS.
[2019-02-16] MEDS ORDERED: PIPERACILLIN SODIUM/TAZO 3.375 GM VIAL ONE (04:59)
[2019-02-16] MEDS: PIPERACILLIN SODIUM/TAZOBACTAM 3.375 G in IV DEXTROSE 5% 50 ML IV SCH ×4 (05:34→23:33)
--- NOTE | 2019-02-16 06:00 | NUR ---
FAMILY POTTS A SMALLER MASK FOR BIPAP, APPLIED. REPOSITIONED W/ HOB ELEVATED.
[2019-02-16 06:07] LABS: BASOPHILS % (AUTO) 0.4 % (0.0-2.0); EOSINOPHILS # (AUTO) 0.1 K/uL (0.0-0.7); HEMATOCRIT 35.9 % (31.2-41.9); HEMOGLOBIN 10.9 g/dL (10.9-14.3); LYMPHOCYTES % (AUTO) 12.9 % (20.5-51.5); MEAN CORPUSCULAR HEMOGLOBIN 29.3 uug (24.7-32.8); MEAN CORPUSCULAR HGB CONC 30 g/dL (32.3-35.6); MEAN CORPUSCULAR VOLUME 96.6 fL (75.5-95.3); MONOCYTES # (AUTO) 0.6 K/uL (2.0-10.0); MONOCYTES % (AUTO) 8.4 % (0.0-11.0); NEUTROPHILS # (AUTO) 5.8 K/uL (1.8-8.9); NEUTROPHILS % (AUTO) 77.3 % (38.5-71.5); PLATELET COUNT (AUTO) 175 K/uL (179-408); RED BLOOD CELL COUNT(AUTO) 3.71 MIL/uL (3.63-4.92); WHITE BLOOD COUNT (AUTO) 7.5 K/uL (3.8-11.8)
[2019-02-16 06:14] LABS: CREATININE 0.6 mg/dL (0.6-1.3); POTASSIUM 4.5 mmol/L (3.5-5.1)
[2019-02-16 06:19] LABS: BILIRUBIN,TOTAL 0.3 mg/dL (0.2-1.0); MAGNESIUM 1.8 mg/dL (1.8-2.4); PHOSPHOROUS 4.3 mg/dL (2.5-4.9)
[2019-02-16 06:27] LABS: THYROID STIMULATING HORMONE 0.629 mIU/mL (0.358-3.740)
[2019-02-16 06:34] LABS: ABG BASE EXCESS -1.8 mmol/L; ABG HCO3 29.6 mmol/L; ABG PCO2 96.6 mmHg (35.0-45.0); ABG PH 7.104 (7.350-7.450); ABG PO2 93.8 mmHg (75.0-100.0); ABG SITE RIGHT RADIAL; ABG TOTAL HEMOGLOBIN 11.1 G/dL (12.0-16.0); COHb 1.2 % (0.5-1.5); MetHb 0.3 % (0.0-1.5); VENT MODE BIPAP
[2019-02-16] MEDS ORDERED: ALBUTEROL SULFATE 2.5 MG/3 ML NEBU NEB SCH (07:35)
--- NOTE | 2019-02-16 07:50 | NUR ---
PT RECEIVED ON BIPAP 15/ RATE 20 FIO2 50%. PT AWAKE AND ALERT. VENT ALARMING DUE TO PT'S LEAK IS TOO HIGH. PT KEPT ON REMOVING MASK. REPOSITIONED MASK. NEW VENT ORDERS, 30/10, RATE 24. ABG TO FOLLOW.
--- NOTE | 2019-02-16 08:00 | NUR ---
Pt's daughter who is here to stay with patient educated on the need of wound dressing care refusing at this moment.
--- NOTE | 2019-02-16 08:21 | NUR ---
Pulmonary services, Dr. Rasmussen in the unit to see and examine pt. aware of latest ABG's. See orders.
[2019-02-16] MEDS: methylPREDNISolone SOD SUCC 40 MG/ML VIAL IV SCH ×3 (08:45→22:00)
[2019-02-16] MEDS: FAMOTIDINE. 20 MG/2 ML VIAL IV SCH (08:45)
[2019-02-16] MEDS: GABAPENTIN 100 MG CAPSULE PO SCH ×2 (09:00→20:37)
[2019-02-16] MEDS ORDERED: LANSOPRAZOLE PO SCH (09:00)
[2019-02-16] MEDS: CLOPIDOGREL 75 MG TABLET PO SCH (09:00)
[2019-02-16] MEDS: CULTURELLE CAPSULE PO SCH ×2 (09:00→20:36)
[2019-02-16] MEDS ORDERED: CLOPIDOGREL 75 MG PO SCH (09:00)
[2019-02-16] MEDS: DULOXETINE 60 MG CAPSULE.DR PO SCH (09:00)
[2019-02-16] MEDS: Z GUARD REMEDY PASTE 57 GM TUBE TOP SCH ×2 (09:53→20:38)
[2019-02-16 10:36] LABS: ABG BASE EXCESS 0.9 mmol/L; ABG HCO3 31.2 mmol/L; ABG PCO2 86.6 mmHg (35.0-45.0); ABG PH 7.174 (7.350-7.450); ABG PO2 135.2 mmHg (75.0-100.0); ABG SITE RIGHT BRACHIAL; ABG TOTAL HEMOGLOBIN 11.1 G/dL (12.0-16.0); MetHb 0.3 % (0.0-1.5); O2Hb 96.6 % (94.0-97.0); VENT MODE BIPAP
--- NOTE | 2019-02-16 10:41 | NUR ---
CLINICAL PHARMACY NOTE: VANCOMYCIN PHARMACY TO DOSE Subjective: To start vancomycin in this 73 y/o female for indication of "sepsis unknown source" Objective: weight 60kg height 152cm BUN/Scr 50/0.6 wbc 7.5 temp 98.5 1gm vanco given in ER 02/16 @ 0300 Assessment/Plan As renal function appears stable, will start regimen of vanco 1gm q19h for estimated trough of 15.14, second dose today at 2200.Will order trough before 4th scheduled dose (not ordered yet). Will also follow renal functio and adjust or dose per level if were to become unstable. Will follow
--- NOTE | 2019-02-16 10:50 | NUR ---
A call to Dr. Rasmussen to report latest ABG results. Orders to continue monitoring received.
--- NOTE | 2019-02-16 11:00 | NUR ---
Attending physician Dr. Farshad Abernathy in the unit to see and examine patient, was given a full report and at this very moment he spoke to wireline field operator Dr. Rasmussen and discussed pt's care plan and possible intubation. Both had a lengthy discussion about the need for intubation with Pt's daughter Annalee who refused intubation at this moment. Pt's daughter requested Time to speak to family and will have a response later on.
--- NOTE | 2019-02-16 12:00 | NUR ---
Patient restless and agitated continuously attempting to remove BIPAP mask which triggers BIPAP alarm and causes air leak. Attempts to seal leak by changing mask sizes twice since this morning. and family aware that mask brought by them not working properly either. Dean MCKEON at bedside.
[2019-02-16] MEDS: ALBUTEROL SULFATE 2.5 MG/3 ML NEBU NEB SCH ×2 (12:37→19:45)
[2019-02-16] MEDS: IPRATROPIUM BROMIDE 0.5 MG/2.5 ML NEBU NEB SCH ×2 (12:37→19:45)
--- NOTE | 2019-02-16 13:33 | NUR ---
WOUND CARE CONSULT: PT HAVING PROCEDURE AT THIS TIME. RECOMMEND SURGICAL CONSULT FOR MULTIPLE WOUNDS. WOUND CULTURES ARE PENDING. DR AMERICO MYERS NOTIFIED OF CONSULT REQUEST. FIRST STEP LOW AIRLOSS MATTRESS ON ORDER. DISCUSSED SKIN PROTECTION WITH NURSING STAFF. WILL SEE PRN. ANNE IN AGREEMENT WITH PLAN OF CARE. Addendum: 02/16/19 at 1401 by SONJA PINA RN PT'S FAMILY AT BEDSIDE REFUSED TO HAVE SKIN/WOUND ASSESSMENT DONE AND REFUSED SURGICAL CONSULT. FAMILY STATES THEY WILL DO DRESSING CHANGES ON TUESDAY AND THAT PT UNDER CARE OF SURGEON AT A WOUND CLINIC. FAMILY STATES PT WAS SEEN AT HER WOUND CLINIC ON TUESDAY. BORDERED FOAM DRESSINGS DRY AND INTACT TO BILATERAL HIPS, SACRUM AND MIDBACK. DR MYERS NOTIFIED.
--- NOTE | 2019-02-16 17:30 | NUR ---
A call to Tree Trimming Line Technician Dr. Tilley to report sutained SBP above 160's. also informed that patient was extremely restless and agitated during this time. Orders received see medication order hx.
[2019-02-16] MEDS ORDERED: hydrALAZINE HCL 20 MG/1 ML VIAL IV PRN (17:45)
--- NOTE | 2019-02-16 17:53 | NUR ---
Pt's daughter and sitter at bedside all the time, and multiple attempts during shift to seal leak and to have patient to relax and follow commands. Patient requesting BIPAP to be removed talking non-stop. RT at bedside all the time.
--- NOTE | 2019-02-16 19:34 | NUR ---
RECEIVED PT AGITATED. ON BIPAP W/ SETTINGS OF I-20/E-5, RATE-24, FIO2 50% W/ O21 SAT OF 100%. MIDLINE INTACT & PATENT ON HASMUKH. HEP LOCK INTACT & PATENT ON R HAND. BP-171/118, HYDRALAZINE 5MG GIVEN IVP ORDERED. REPOSITIONED PT W/ HOB ELEVATED.
--- NOTE | 2019-02-16 19:45 | NUR ---
PT RECEIVED ON BIPAP; SETTINGS - IPAP 20, EPAP 5, RR 24, FIO2 50%. PT APPEARS TO BE TOLERATING SETTINGS AT THIS TIME. MEPILEX IS IN PLACE TO PREVENT SKIN BREAKDOWN FROM BIPAP MASK. LEAK IS ADEQUATE AT THIS TIME. Q6 INHALATION TX ADMINISTERED ORDERED BY MD. TOLERATED WELL. NO S/S OF RESPIRATORY DISTRESS OBSERVED. WILL CONTINUE TO MONITOR.
--- NOTE | 2019-02-16 20:00 | NUR ---
DAUGHTER AT BEDSIDE. TALKED TO PT TO RELAX.
[2019-02-16] MEDS: ATORVASTATIN 10 MG TABLET PO SCH (20:37)
[2019-02-16] MEDS: ACETAMINOPHEN 650 MG SUPP.RECT RC PRN (20:41)
[2019-02-16] MEDS ORDERED: VANCOMYCIN IV 1,000 MG in IV DEXTROSE 5% 250 ML IV SCH (22:00)
--- NOTE | 2019-02-16 22:00 | NUR ---
HS CARE DONE. REPOSITIONED W/ HOB ELEVATED.
[2019-02-17] VITALS (23 sets, daily range): BP systolic 123–168; BP diastolic 62–98
--- NOTE | 2019-02-17 01:27 | NUR ---
INHALATION TREATMENT HELD DUE TO HEART RATE. HR - 111. RN AWARE AND IN AGREEMENT WITH WITHHOLDING MEDICATION AT THIS TIME. NO S/S OF RESPIRATORY DISTRESS OBSERVED AT THIS TIME.
[2019-02-17] MEDS: IPRATROPIUM BROMIDE 0.5 MG/2.5 ML NEBU NEB SCH ×4 (01:30→19:44)
[2019-02-17] MEDS: ALBUTEROL SULFATE 2.5 MG/3 ML NEBU NEB SCH ×4 (01:30→19:44)
[2019-02-17] MEDS: ACETAMINOPHEN 650 MG SUPP.RECT RC PRN ×2 (02:57→08:51)
--- NOTE | 2019-02-17 04:00 | NUR ---
AM CARE DONE. ORAL CARE DONE. REPOSITIONED W/ HOB ELEVATED.
[2019-02-17 05:17] LABS: BASOPHILS % (AUTO) 0.3 % (0.0-2.0); HEMATOCRIT 35.9 % (31.2-41.9); HEMOGLOBIN 11.4 g/dL (10.9-14.3); LYMPHOCYTES # (AUTO) 0.4 K/uL (20.0-40.0); LYMPHOCYTES % (AUTO) 11.9 % (20.5-51.5); MEAN CORPUSCULAR HEMOGLOBIN 29.3 uug (24.7-32.8); MEAN CORPUSCULAR HGB CONC 32 g/dL (32.3-35.6); MEAN CORPUSCULAR VOLUME 92.4 fL (75.5-95.3); MONOCYTES # (AUTO) 0.1 K/uL (2.0-10.0); MONOCYTES % (AUTO) 4.1 % (0.0-11.0); NEUTROPHILS # (AUTO) 2.9 K/uL (1.8-8.9); NEUTROPHILS % (AUTO) 83.7 % (38.5-71.5); PLATELET COUNT (AUTO) 200 K/uL (179-408); RED BLOOD CELL COUNT(AUTO) 3.88 MIL/uL (3.63-4.92); WHITE BLOOD COUNT (AUTO) 3.5 K/uL (3.8-11.8)
[2019-02-17] MEDS: PIPERACILLIN SODIUM/TAZOBACTAM 3.375 G in IV DEXTROSE 5% 50 ML IV SCH ×4 (05:18→23:43)
[2019-02-17] MEDS: methylPREDNISolone SOD SUCC 40 MG/ML VIAL IV SCH ×2 (05:20→17:13)
[2019-02-17 05:31] LABS: CREATININE 0.7 mg/dL (0.6-1.3); MAGNESIUM 1.8 mg/dL (1.8-2.4); PHOSPHOROUS 2.2 mg/dL (2.5-4.9); POTASSIUM 3.4 mmol/L (3.5-5.1)
--- NOTE | 2019-02-17 06:00 | NUR ---
DECREASED FIO2 TO 28% W/ O2 SAT OF 100%. NOT IN ANY DISTRESS.
[2019-02-17 07:28] LABS: ABG BASE EXCESS 2.5 mmol/L; ABG HCO3 25.1 mmol/L; ABG PCO2 32.6 mmHg (35.0-45.0); ABG PH 7.505 (7.350-7.450); ABG PO2 88.4 mmHg (75.0-100.0); ABG SITE RIGHT RADIAL; ABG TOTAL HEMOGLOBIN 12.2 G/dL (12.0-16.0); COHb 0.4 % (0.5-1.5); MetHb 0.3 % (0.0-1.5); VENT MODE BIPAP
--- NOTE | 2019-02-17 07:43 | NUR ---
Received patient awake alert confused, restless agitated. temp of 99.4 that was medicated at 0300 this morning. heart rate between 110-120. sbp in the 140's. Patient repositioned. Will continue to monitor.
--- NOTE | 2019-02-17 07:50 | NUR ---
PT RECEIVED ON BIPAP WITH SETTINGS IPAP20/EPAP5/RATE 24/28% FIO2. PT AWAKE ALERT AND RESPONSIVE. PROTECTIVE GEL IN PLACE. ROUTINE ABG ORDERED BY DR CORREA COMPLETED. RESULTS NON CRITICAL AND VIEWABLE IN [facility].
--- NOTE | 2019-02-17 08:15 | NUR ---
Pt's daughter in to visit and despite pt's restlessness and agitation and attempts to remove BIPAP pt's daughter removed mittens. Addendum: 02/17/19 at 1225 by KENNY MANE RN Pt's daughter educated on restrains release criteria at this moment she compromised to keep her mother from removing bipap and IV line.
[2019-02-17] MEDS: FAMOTIDINE. 20 MG/2 ML VIAL IV SCH (08:51)
[2019-02-17] MEDS: GABAPENTIN 100 MG CAPSULE PO SCH ×2 (09:00→21:00)
[2019-02-17] MEDS: DULOXETINE 60 MG CAPSULE.DR PO SCH ×2 (09:00→13:53)
[2019-02-17] MEDS: CLOPIDOGREL 75 MG TABLET PO SCH ×2 (09:00→13:53)
[2019-02-17] MEDS: CULTURELLE CAPSULE PO SCH ×3 (09:00→21:00)
--- NOTE | 2019-02-17 09:45 | NUR ---
Pulmonary services, Dr. Rasmussen in the unit to see and examine patient. . and daughter had a lengthy discussion of latest ABG results, current condition, and care plan. Orders to remove pt from BIPAP received and RT notified of orders.
--- NOTE | 2019-02-17 09:55 | NUR ---
RT at bedside and patient removed from BIPAP and placed on NC 2L.
--- NOTE | 2019-02-17 10:30 | NUR ---
Pt.s daughter Nadj. Haines insisting to feed her mother. She was educated on high risk aspiration and the fact that pt. was just removed from BIPAP. She was informed that as soon as attending will see patient will proceed to assess pt ability to swallow.
--- NOTE | 2019-02-17 11:00 | NUR ---
With daughter at bedside wound care R.N in the unit. Pts daughter opening the door to her. Wound dressing done as stated by daughter wound to be change today. Addendum: 02/17/19 at 1237 by KENNY MANE RN Wound care R.NGisell at bedside doing wound dressing change Alexandra Burleson with Lic. #[id number]
[2019-02-17] MEDS: Z GUARD REMEDY PASTE 57 GM TUBE TOP SCH ×2 (11:05→21:01)
[2019-02-17] MEDS: POTASSIUM CHLORIDE 50 ML IV SCH ×2 (11:09→13:38)
--- NOTE | 2019-02-17 11:12 | NUR ---
CLINICAL PHARMACY NOTE: VANCOMYCIN PHARMACY TO DOSE Subjective: To start vancomycin in this 73 y/o female for indication of "sepsis unknown source"- per ID note :? PNA ?aspiration CHF exacerbation, +/- UTI Objective: weight 60kg height 152cm BUN/Scr 26/0.7 wbc 3.5 temp 99.4 1gm vanco given in ER 02/16 @ 0300 Assessment/Plan Will continue same dose of vanco 1gm IVPB q19h for today. 3rd dose due today at 1700. Will order trough before 4th scheduled dose (ordered for 02/18 at 1130). Pharmacy shall review the level & adjust the dose if needed. Will follow
[2019-02-17 12:17] LABS: ABG HCO3 26.2 mmol/L; ABG PCO2 39.3 mmHg (35.0-45.0); ABG PH 7.441 (7.350-7.450); ABG PO2 75.7 mmHg (75.0-100.0); ABG SITE LEFT RADIAL; MetHb 0.3 % (0.0-1.5); O2Hb 93.4 % (94.0-97.0); VENT MODE Nasal Cannula
--- NOTE | 2019-02-17 12:50 | NUR ---
Dr. Yen called to be notified of pt's daughter desire to take her mother home AMA at this moment. PT's daughter insisting in feeding her mother, informed and as stated by Dr. Yen I'm ok with nursing bedside swallow evaluation I just want her to be aware of risk of aspiration. Pt's daughter aware and agree to proceed and do bedside swallow eval. Addendum: 02/17/19 at 1526 by KENNY MANE RN Latrice educated on high risk of aspiration and that not formal swallow eval done.
--- NOTE | 2019-02-17 13:51 | NUR ---
After passing nursing bedside swallow eval as ordered by . with pt's daughters consent and request 0900 medications administered with daughter at bedside refusing Gabapentin.
[2019-02-17] MEDS: KETOROLAC TROMETHAMINE 15 MG INJ IVP PRN (15:03)
[2019-02-17] MEDS: FLUCONAZOLE 100 MG TABLET PO SCH (16:13)
[2019-02-17] MEDS ORDERED: NEUTRA PHOS PACKET PO ONE (16:15)
[2019-02-17] MEDS: ATORVASTATIN 10 MG TABLET PO SCH (20:59)
[2019-02-17] MEDS: ACETAMINOPHEN 325 MG TABLET PO PRN (21:42)
[2019-02-18] VITALS (22 sets, daily range): BP systolic 122–169; BP diastolic 57–105
[2019-02-18] MEDS: ALBUTEROL SULFATE 2.5 MG/3 ML NEBU NEB SCH ×4 (00:40→19:33)
[2019-02-18] MEDS: IPRATROPIUM BROMIDE 0.5 MG/2.5 ML NEBU NEB SCH ×4 (00:40→19:33)
--- NOTE | 2019-02-18 01:00 | NUR ---
0040 hrs respiratory treatment at request of radio news writer. Patient slightly diaphoretic, color pale; desired results obtained. Resting comfortably at present, color good.
--- NOTE | 2019-02-18 05:00 | NUR ---
Right upper arm mid-line dsg changed / protocol. Marginal urine output.
[2019-02-18 05:12] LABS: BASOPHILS % (AUTO) 0.2 % (0.0-2.0); HEMATOCRIT 34.8 % (31.2-41.9); HEMOGLOBIN 11.3 g/dL (10.9-14.3); LYMPHOCYTES # (AUTO) 0.4 K/uL (20.0-40.0); LYMPHOCYTES % (AUTO) 7.1 % (20.5-51.5); MEAN CORPUSCULAR HEMOGLOBIN 29.3 uug (24.7-32.8); MEAN CORPUSCULAR HGB CONC 32 g/dL (32.3-35.6); MEAN CORPUSCULAR VOLUME 90.5 fL (75.5-95.3); MONOCYTES # (AUTO) 0.6 K/uL (2.0-10.0); MONOCYTES % (AUTO) 9.8 % (0.0-11.0); NEUTROPHILS # (AUTO) 4.7 K/uL (1.8-8.9); NEUTROPHILS % (AUTO) 82.9 % (38.5-71.5); PLATELET COUNT (AUTO) 223 K/uL (179-408); RED BLOOD CELL COUNT(AUTO) 3.85 MIL/uL (3.63-4.92); WHITE BLOOD COUNT (AUTO) 5.7 K/uL (3.8-11.8)
[2019-02-18] MEDS: methylPREDNISolone SOD SUCC 40 MG/ML VIAL IV SCH ×2 (05:20→18:12)
[2019-02-18] MEDS: PIPERACILLIN SODIUM/TAZOBACTAM 3.375 G in IV DEXTROSE 5% 50 ML IV SCH ×3 (05:20→18:14)
[2019-02-18 05:38] LABS: CARBON DIOXIDE 30 mmol/L (21-32); CHLORIDE 103 mmol/L (98-107); CREATININE 0.7 mg/dL (0.6-1.3); GLUCOSE 102 mg/dL (74-106); MAGNESIUM 1.8 mg/dL (1.8-2.4); PHOSPHOROUS 2.6 mg/dL (2.5-4.9); UREA NITROGEN, BLOOD 23 mg/dL (7-18)
--- NOTE | 2019-02-18 07:00 | NUR ---
Recieved pt. from offgoing Guanako corbin. Dx.; sepsis, A.R.F., RESP. failure, pt. lying in bed with H.O.B. elevated 35 degrees. awake. oriented to name and place. follows simple commands. denies chest pains or dyspnea. s.t. with pac s. on glass presser. all four extremeties partially contracted.
[2019-02-18 07:58] LABS: ABG BASE EXCESS 2.4 mmol/L; ABG HCO3 26.5 mmol/L; ABG PCO2 39.5 mmHg (35.0-45.0); ABG PH 7.445 (7.350-7.450); ABG PO2 76.8 mmHg (75.0-100.0); ABG SITE LEFT RADIAL; ABG TOTAL HEMOGLOBIN 11.9 G/dL (12.0-16.0); COHb 1.2 % (0.5-1.5); MetHb 0.3 % (0.0-1.5); VENT MODE Nasal Cannula
[2019-02-18] MEDS: ONDANSETRON 4 MG/2 ML VIAL IV PRN (08:20)
[2019-02-18] MEDS: CLOPIDOGREL 75 MG TABLET PO SCH (08:20)
[2019-02-18] MEDS: FAMOTIDINE. 20 MG/2 ML VIAL IV SCH (08:20)
[2019-02-18] MEDS: GABAPENTIN 100 MG CAPSULE PO SCH ×2 (08:21→20:38)
[2019-02-18] MEDS: FLUCONAZOLE 100 MG TABLET PO SCH (08:21)
[2019-02-18] MEDS: ACETAMINOPHEN 325 MG TABLET PO PRN ×3 (08:21→17:09)
[2019-02-18] MEDS: CULTURELLE CAPSULE PO SCH ×2 (08:21→20:38)
[2019-02-18] MEDS: KETOROLAC TROMETHAMINE 15 MG INJ IVP PRN (08:22)
[2019-02-18] MEDS: DULOXETINE 60 MG CAPSULE.DR PO SCH (08:22)
--- NOTE | 2019-02-18 08:49 | NUR ---
I just spoke with daughter, Karri. She was given update regarding pt. her phone number is : [phone]. I informed her that the doctor will call , when they come in today to give an update on her mothers condition.
[2019-02-18] MEDS: Z GUARD REMEDY PASTE 57 GM TUBE TOP SCH ×2 (09:04→20:39)
[2019-02-18] MEDS ORDERED: POTASSIUM CHLORIDE 20 MEQ TAB.PRT.SR PO ONE (09:15)
--- NOTE | 2019-02-18 09:21 | NUR ---
DR. CORREA HERE TO EXAMINE PT. AND SPOKE WITH DAUGHTER TO GIVE UPDATE ON PTS. STATUS.
[2019-02-18] MEDS: POTASSIUM CHLORIDE 50 ML IV SCH ×2 (09:55→11:12)
[2019-02-18] MEDS: FUROSEMIDE 20 MG TABLET PO SCH (11:20)
--- NOTE | 2019-02-18 13:13 | NUR ---
service crew leader was here earlier to examine pt. He spoke with daughter and pt. lasix p.o. was ordered. pt. tolerating swallowing p.o. pills and pudding and apple sauce. great appetite. no difficulty swallowing. no coughing after eating. H.O.B. remained in high-fowlers position during and for two hours after feeding the pt. pt. follows simple commands. speech clear and easy to understand. potassium 3.0 today. pt. was given K.C.L. 40 M.E.Q. P.O. and 20 M.E.Q. I.V.P.B. over two hours via pump, mid-line to rt. upper arm.
--- NOTE | 2019-02-18 16:39 | NUR ---
Daughter visiting with pt. daughter was giving pt. p.o. liquids to drink with a cup. charge nurse spoke with daughter and told her not to give p.o. fluids in a cup pt. is on a pureed diet.
--- NOTE | 2019-02-18 20:00 | NUR ---
RECEIVED PT VERBALLY RESPONSIVE, ACCDG TO FAMILY PT IS COHERENT SPEAKS FARSI. ON O2 @ 2L NC W/ O2 SAT OF 94%. MID LINE ON HASMUKH INTACT & PATENT, HEP LOCK. HEP LOCK ON R HAND INTACT & PATENT. AFEBRILE. C-SCOPE SR W/ PACS. NOT IN ANY DISTRESS.
[2019-02-18] MEDS: ATORVASTATIN 10 MG TABLET PO SCH (20:38)
[2019-02-18] MEDS: VORICONAZOLE 200 MG TABLET PO SCH (20:39)
--- NOTE | 2019-02-18 22:00 | NUR ---
HS CARE DONE. INCONT. OF SOFT TO LOOSE BLACKISH STOOL. Z-GUARD CREAM AFTER EACH CLEANING.. REPOSITIONED W/ HOB ELEVATED.
[2019-02-19] VITALS: BP 148/97
--- NOTE | 2019-02-19 | NUR ---
v/s stable. afebrile. sleeping well.
[2019-02-19] MEDS: PIPERACILLIN SODIUM/TAZOBACTAM 3.375 G in IV DEXTROSE 5% 50 ML IV SCH ×5 (00:03→23:03)
[2019-02-19] MEDS: ALBUTEROL SULFATE 2.5 MG/3 ML NEBU NEB SCH ×4 (00:59→19:37)
[2019-02-19] MEDS: IPRATROPIUM BROMIDE 0.5 MG/2.5 ML NEBU NEB SCH ×4 (00:59→19:37)
[2019-02-19 04:00] VITALS: BP 144/80
--- NOTE | 2019-02-19 04:30 | NUR ---
AM CARE DONE. ORAL CARE DONE. INCONT OF STOOL NOTED AT ALL TIMES. REPOSITIONED ON HER SIDE W/ HOB
[2019-02-19 04:53] LABS: BASOPHILS % (AUTO) 0.1 % (0.0-2.0); HEMATOCRIT 33.4 % (31.2-41.9); HEMOGLOBIN 10.9 g/dL (10.9-14.3); LYMPHOCYTES # (AUTO) 0.3 K/uL (20.0-40.0); LYMPHOCYTES % (AUTO) 5.6 % (20.5-51.5); MEAN CORPUSCULAR HEMOGLOBIN 29.6 uug (24.7-32.8); MEAN CORPUSCULAR HGB CONC 33 g/dL (32.3-35.6); MEAN CORPUSCULAR VOLUME 90.2 fL (75.5-95.3); MONOCYTES # (AUTO) 0.4 K/uL (2.0-10.0); MONOCYTES % (AUTO) 8.3 % (0.0-11.0); NEUTROPHILS # (AUTO) 4.6 K/uL (1.8-8.9); PLATELET COUNT (AUTO) 204 K/uL (179-408); WHITE BLOOD COUNT (AUTO) 5.3 K/uL (3.8-11.8)
[2019-02-19 05:05] LABS: CARBON DIOXIDE 31 mmol/L (21-32); CHLORIDE 107 mmol/L (98-107); CREATININE 0.8 mg/dL (0.6-1.3); GLUCOSE 153 mg/dL (74-106); MAGNESIUM 1.6 mg/dL (1.8-2.4); PHOSPHOROUS 2.5 mg/dL (2.5-4.9); POTASSIUM 3.7 mmol/L (3.5-5.1); UREA NITROGEN, BLOOD 22 mg/dL (7-18)
[2019-02-19] MEDS: methylPREDNISolone SOD SUCC 40 MG/ML VIAL IV SCH ×2 (05:28→17:34)
--- NOTE | 2019-02-19 06:00 | NUR ---
CXR DONE. REMOVED HEP LOCK ON R HAND. MIDLINE HEP LOCK INTACT & PATENT.
--- NOTE | 2019-02-19 07:30 | NUR ---
Report received from Nghia DA SILVA, 73 yr old female was admitted from home to ED on for shortness of breath. Needed to be on BIPAP for high CO2.now on 2 liters alex canula.ekg is sinus rhythm with pacs. afebrile and vital signs are stable. Addendum: 02/19/19 at 1041 by DB CURRY RN Amended: Links added.
[2019-02-19] MEDS: FUROSEMIDE 20 MG TABLET PO SCH (08:53)
[2019-02-19] MEDS: FAMOTIDINE 20 MG TABLET PO SCH (08:54)
[2019-02-19] MEDS: ACETAMINOPHEN 325 MG TABLET PO PRN (08:55)
[2019-02-19] MEDS: GABAPENTIN 100 MG CAPSULE PO SCH ×2 (08:55→20:51)
[2019-02-19] MEDS: CLOPIDOGREL 75 MG TABLET PO SCH (08:55)
[2019-02-19] MEDS: CULTURELLE CAPSULE PO SCH ×2 (08:55→20:50)
[2019-02-19] MEDS: VORICONAZOLE 200 MG TABLET PO SCH ×2 (09:02→20:50)
[2019-02-19] MEDS: DULOXETINE 60 MG CAPSULE.DR PO SCH (09:02)
[2019-02-19] MEDS: Z GUARD REMEDY PASTE 57 GM TUBE TOP SCH ×2 (09:03→20:54)
[2019-02-19] MEDS ORDERED: MAGNESIUM SULFATE/D5W 100 ML IV SCH (09:30)
--- NOTE | 2019-02-19 09:45 | NUR ---
mag 1.6. 1/2 magnesium sulfate hung IV via herminia midline
[2019-02-19] MEDS: MAGNESIUM SULFATE/D5W 100 ML IV SCH ×2 (09:49→11:10)
--- NOTE | 2019-02-19 10:45 | NUR ---
patient transferred to room 314 tele bed.accompanied by [facility] nursing mainspring fabrication supervisor and Kam Tele foam charger. report given to De DA SILVA Addendum: 02/19/19 at 1100 by DB CURRY RN Amended: Links added.
[2019-02-19 11:40] VITALS: BP 147/84
[2019-02-19 15:16] VITALS: BP 156/70
--- NOTE | 2019-02-19 19:20 | NUR ---
RECEIVED PATIENT IN BED. AWAKE BUT CONFUSED AND DISORIENTED. NO SIGNS OR SYMPTOMS OF PAIN OR SOB. O2 AT 2LPM VIA NC IN PLACE. IN NO RESPIRATORY DISTRESS. BREATHING EVEN AND NON-LABORED. NSR ON TELE AT 85/MIN. MIDLINE ON RIGHT UPPER ARM INTACT AND PATENT. AT BEDSIDE. SAFETY MEASURE INITIATED. CONTINUE TO MONITOR.
[2019-02-19 20:03] VITALS: BP 151/91
[2019-02-19] MEDS: ATORVASTATIN 10 MG TABLET PO SCH (20:50)
--- NOTE | 2019-02-19 20:51 | NUR ---
Patient seen by Daxa Solomon with no new order given.
[2019-02-19] MEDS: KETOROLAC TROMETHAMINE 15 MG INJ IVP PRN (21:11)
[2019-02-19] MEDS: ONDANSETRON 4 MG/2 ML VIAL IV PRN (21:50)
[2019-02-20 00:57] VITALS: BP 135/72
[2019-02-20] MEDS: ALBUTEROL SULFATE 2.5 MG/3 ML NEBU NEB SCH ×4 (01:28→22:27)
[2019-02-20] MEDS: IPRATROPIUM BROMIDE 0.5 MG/2.5 ML NEBU NEB SCH ×4 (01:28→22:26)
[2019-02-20 04:00] VITALS: BP 140/65
[2019-02-20] MEDS: PIPERACILLIN SODIUM/TAZOBACTAM 3.375 G in IV DEXTROSE 5% 50 ML IV SCH ×3 (05:45→17:06)
[2019-02-20] MEDS: methylPREDNISolone SOD SUCC 40 MG/ML VIAL IV SCH ×2 (05:46→17:06)
--- NOTE | 2019-02-20 06:24 | NUR ---
PATIENT APPEARS COMFORTABLE IN BED. ASLEEP,BUT AROUSE TO TACTILE STIMULI. A0X1, MAINLY CONFUSED. NO SIGNS OR SYMPTOMS OF PAIN OR SOB. O2 AT 2LPM VIA NC IN PLACE. O2 SAT AT 98%. NSR ON TELE AT 76/MIN WITH PAC'S AND PVC'S. MIDLINE ON RIGHT UPPER ARM INTACT AND PATENT. NO ADVERSE REACTION NOTED FROM IV ABX. COE CATHETER INTACT AND PATENT. SAFETY MEASURE MAINTAINED.
[2019-02-20 06:34] LABS: BASOPHILS % (AUTO) 0.2 % (0.0-2.0); HEMATOCRIT 34.9 % (31.2-41.9); HEMOGLOBIN 10.7 g/dL (10.9-14.3); LYMPHOCYTES # (AUTO) 0.4 K/uL (20.0-40.0); LYMPHOCYTES % (AUTO) 6.8 % (20.5-51.5); MEAN CORPUSCULAR HGB CONC 31 g/dL (32.3-35.6); MEAN CORPUSCULAR VOLUME 91.1 fL (75.5-95.3); MONOCYTES # (AUTO) 0.7 K/uL (2.0-10.0); MONOCYTES % (AUTO) 10.2 % (0.0-11.0); NEUTROPHILS # (AUTO) 5.4 K/uL (1.8-8.9); NEUTROPHILS % (AUTO) 82.8 % (38.5-71.5); PLATELET COUNT (AUTO) 181 K/uL (179-408); RED BLOOD CELL COUNT(AUTO) 3.83 MIL/uL (3.63-4.92); WHITE BLOOD COUNT (AUTO) 6.6 K/uL (3.8-11.8)
[2019-02-20 06:41] LABS: CARBON DIOXIDE 31 mmol/L (21-32); CHLORIDE 108 mmol/L (98-107); CREATININE 0.6 mg/dL (0.6-1.3); GLUCOSE 122 mg/dL (74-106); MAGNESIUM 2.5 mg/dL (1.8-2.4); PHOSPHOROUS 3.4 mg/dL (2.5-4.9); POTASSIUM 4.1 mmol/L (3.5-5.1); UREA NITROGEN, BLOOD 28 mg/dL (7-18)
--- NOTE | 2019-02-20 07:20 | NUR ---
AWAKE ALERT VERBALLY RESPONDS ALL NEEDS ANTICIPATED AND SATISFIED.TELE ID SR WITH PAC/PVC WITH NO CHEST PAIN AT THIS TIME HER IS AT THE BEDSIDE ON O2 WITH NO S/S OF SHORTNESS OF BREATH AT THIS TIME MADE COMFORTABLE AND WILL CONTINUE TO OBSERVE.
[2019-02-20 07:26] LABS: ABG BASE EXCESS 6.9 mmol/L; ABG HCO3 32.4 mmol/L; ABG PCO2 50.4 mmHg (35.0-45.0); ABG PH 7.426 (7.350-7.450); ABG PO2 71.5 mmHg (75.0-100.0); ABG SITE RIGHT RADIAL; ABG TOTAL HEMOGLOBIN 11.3 G/dL (12.0-16.0); COHb 1.5 % (0.5-1.5); MetHb 0.3 % (0.0-1.5); VENT MODE Nasal Cannula
--- NOTE | 2019-02-20 10:43 | NUR ---
PATIENT SEEN AND EXAMINED BY DR CORREA WITH NEW ORDERS AND NOTED.
[2019-02-20 11:00] LABS: BILIRUBIN,DIRECT 0.1 mg/dL (0.0-0.2); BILIRUBIN,TOTAL 0.3 mg/dL (0.2-1.0); TOTAL PROTEIN, SERUM 5.6 g/dL (6.4-8.2)
--- NOTE | 2019-02-20 11:00 | NUR ---
PATIENTS DAUGHTER DARREN IN THE ROOM AND STATED THAT SHE IS THE ONLY ONE THAT CAN CHANGE THE PATIENTS WOUND STATED HAS ALL THE EQUIPMENT THAT SHE NEEDS AND WILL CHANGE THEM WHEN THEY ARE DUE.DID NOT ALLOW ME TO OPEN THE WOUND AND ASSESS RIGHT TO REFUSE RESPECTED.
[2019-02-20] MEDS: CLOPIDOGREL 75 MG TABLET PO SCH ×2 (11:15→12:00)
[2019-02-20] MEDS: DULOXETINE 60 MG CAPSULE.DR PO SCH ×2 (11:15→12:00)
[2019-02-20] MEDS: FAMOTIDINE 20 MG TABLET PO SCH ×2 (11:15→12:00)
[2019-02-20] MEDS: GABAPENTIN 100 MG CAPSULE PO SCH ×4 (11:15→21:00)
[2019-02-20] MEDS: CULTURELLE CAPSULE PO SCH ×3 (11:15→20:07)
[2019-02-20] MEDS: VORICONAZOLE 200 MG TABLET PO SCH ×3 (11:16→20:07)
[2019-02-20] MEDS: Z GUARD REMEDY PASTE 57 GM TUBE TOP SCH ×2 (11:16→21:49)
[2019-02-20 11:20] VITALS: BP 140/72
[2019-02-20] MEDS: KETOROLAC TROMETHAMINE 15 MG INJ IVP PRN (11:28)
[2019-02-20 15:32] VITALS: BP 158/74
[2019-02-20 21:00] VITALS: BP 139/76
--- NOTE | 2019-02-20 21:00 | NUR ---
FAMILY IS AT BEDSIDE, DAUGHTER GAVE MEDICATIONS BUT REFUSED NEURONTIN PER DAUGHTER IT WILL MAKE HER TO DROWSY, EXPLAINED RISKS AND BENEFITS , FAMILY AND PATIENT UNDERSTANDS, HELD NEURONTIN . EXPLAINED TO FAMILY THAT I WILL BE TAKING PICTURES OF THE WOUNDS PER FACILITY PROTOCOL. BOTH DAUGHTERS AT BEDSIDE EXPLAINED TO ME THAT THEY DO NOT WANT ME TO OPEN THE DRESSINGS TO TAKE PICTURES, PER DAUGHTERS THERE IS NO NEED AND THE DAUGHTERS WILL TAKE CARE OF THE WOUNDS. RESPECTED WISHES. PICTURES NOT TAKEN OF WOUNDS PER FAMILY REQUEST.
[2019-02-21 00:04] VITALS: BP 150/69
[2019-02-21] MEDS: PIPERACILLIN SODIUM/TAZOBACTAM 3.375 G in IV DEXTROSE 5% 50 ML IV SCH ×3 (00:15→12:17)
[2019-02-21] MEDS: IPRATROPIUM BROMIDE 0.5 MG/2.5 ML NEBU NEB SCH ×4 (02:10→19:40)
[2019-02-21] MEDS: ALBUTEROL SULFATE 2.5 MG/3 ML NEBU NEB SCH ×4 (02:10→19:40)
[2019-02-21 04:10] VITALS: BP 144/67
[2019-02-21] MEDS: methylPREDNISolone SOD SUCC 40 MG/ML VIAL IV SCH (05:52)
--- NOTE | 2019-02-21 06:56 | NUR ---
patient slept well last night with at bedisde, titrated 02 down to 1L per order, 02 sat at 93% , monitoring analyst on reading sinus rhythm HR 79 endorsed to am shift.
--- NOTE | 2019-02-21 08:00 | NUR ---
PT RESTING IN BED. FAMILY MEMBER AT BEDSIDE. PT ON O2 VIA NC @ 1L/M WITH SATS OF 90%. NO ACUTE DISTRESS NOTED. NO SOB NOTED. CALL LIGHT WITHIN REACH. PT ON TELE MONITORING SINUS RHYTHM. WILL CONTINUE TO MONITOR.
[2019-02-21] MEDS: KETOROLAC TROMETHAMINE 15 MG INJ IVP PRN (08:37)
[2019-02-21 09:12] LABS: BASOPHILS % (AUTO) 0.3 % (0.0-2.0); HEMATOCRIT 38.7 % (31.2-41.9); HEMOGLOBIN 11.7 g/dL (10.9-14.3); LYMPHOCYTES # (AUTO) 0.4 K/uL (20.0-40.0); LYMPHOCYTES % (AUTO) 10.4 % (20.5-51.5); MEAN CORPUSCULAR HGB CONC 30 g/dL (32.3-35.6); MEAN CORPUSCULAR VOLUME 92.5 fL (75.5-95.3); MONOCYTES # (AUTO) 0.3 K/uL (2.0-10.0); MONOCYTES % (AUTO) 8.1 % (0.0-11.0); NEUTROPHILS # (AUTO) 3.3 K/uL (1.8-8.9); NEUTROPHILS % (AUTO) 81.2 % (38.5-71.5); PLATELET COUNT (AUTO) 154 K/uL (179-408); RED BLOOD CELL COUNT(AUTO) 4.19 MIL/uL (3.63-4.92); WHITE BLOOD COUNT (AUTO) 4.1 K/uL (3.8-11.8)
[2019-02-21 09:21] LABS: CARBON DIOXIDE 33 mmol/L (21-32); CHLORIDE 107 mmol/L (98-107); CREATININE 0.6 mg/dL (0.6-1.3); GLUCOSE 135 mg/dL (74-106); MAGNESIUM 2.3 mg/dL (1.8-2.4); PHOSPHOROUS 3.8 mg/dL (2.5-4.9); UREA NITROGEN, BLOOD 32 mg/dL (7-18)
[2019-02-21] MEDS: VORICONAZOLE 200 MG TABLET PO SCH (09:24)
[2019-02-21] MEDS: FAMOTIDINE 20 MG TABLET PO SCH (09:25)
[2019-02-21] MEDS: DULOXETINE 60 MG CAPSULE.DR PO SCH (09:25)
[2019-02-21] MEDS: CULTURELLE CAPSULE PO SCH (09:25)
[2019-02-21] MEDS: GABAPENTIN 100 MG CAPSULE PO SCH (09:25)
[2019-02-21] MEDS: CLOPIDOGREL 75 MG TABLET PO SCH (09:25)
[2019-02-21] MEDS: Z GUARD REMEDY PASTE 57 GM TUBE TOP SCH (09:25)
[2019-02-21] MEDS: ACETAMINOPHEN 325 MG TABLET PO PRN (11:26)
[2019-02-21 11:48] VITALS: BP 132/68
--- NOTE | 2019-02-21 12:00 | NUR ---
PT RESTING COMFORTABLY IN BED. O2 AT 1 L/M WITH SATS OF 92%. NO ACUTE DISTRESS OR SOB NOTED. CALL LIGHT WITHIN REACH. FAMILY AT BEDSIDE. DC ORDER FOR TODAY AFTERNOON.
[2019-02-21 16:14] VITALS: BP 130/69
[2019-02-21] MEDS ORDERED: TRAM50TA2 PO (17:55)
[2019-02-21] MEDS ORDERED: VORI200T PO (17:55)
[2019-02-21] MEDS ORDERED: predniSONE 20 MG TABLET PO SCH (18:00)
--- NOTE | 2019-02-21 18:00 | NUR ---
PT RESTING COMFORTABLY IN BED. NO ACUTE DISTRESS OR SOB NOTED. DISCHARGE ORDER RECEIVED FROM DR CARTER. SARAVANAN REMOVED. MID LINE REMOVED. PT ON O2 @ 1L/M WITH SATS OF 92%. DISCHARGE INSTRUCTIONS GIVEN TO . ALL BELONGINGS RETURNED. AWAITING AMBULANCE SERVICE FOR TRANSPORT.
--- NOTE | 2019-02-21 19:20 | NUR ---
Receive pt on bed jenny .Pt show shows no signs of acute distress. Pt to be discharged . Waiting for [facility]. Safety and comfort provided.Will continue to monitor.
--- NOTE | 2019-02-21 19:52 | NUR ---
Pt wheeled out by [facility] unit 114.Discharge instructions and papers given to the . Belongings given to the . Pt stable and in no acute distress.
[2019-02-21 20:22] VITALS: BP 146/69
== END 2019-02-21 21:34 | disposition home health service (06) | DRG 871 ==
LOC: ER 02-16 00:02 → CCU 02-16 02:00 → TELE3 02-19 11:30
PROVIDERS: ADMIT Registered Nurse; ATTEND Registered Nurse
PROC: 5A09357 Assistance with Respiratory Ventilation, Less than 24 Consecutive Hours, Continuous Positive Airway Pressure (ICD-10-PCS; principal; 2019-02-15)
PROC: 05H933Z Insertion of Infusion Device into Right Brachial Vein, Percutaneous Approach (ICD-10-PCS; 2019-02-16)
DX: A41.9 Sepsis, unspecified organism (principal); J96.22 Acute and chronic respiratory failure with hypercapnia; J96.21 Acute and chronic respiratory failure with hypoxia; E43 Unspecified severe protein-calorie malnutrition; I50.33 Acute on chronic diastolic (congestive) heart failure; R53.2 Functional quadriplegia; G93.41 Metabolic encephalopathy; J69.0 Pneumonitis due to inhalation of food and vomit; R65.21 Severe sepsis with septic shock; N39.0 Urinary tract infection, site not specified; B37.49 Other urogenital candidiasis; J98.11 Atelectasis; D68.59 Other primary thrombophilia; E87.2 Acidosis; G35 Multiple sclerosis; I11.0 Hypertensive heart disease with heart failure; I25.2 Old myocardial infarction; K59.00 Constipation, unspecified; J44.9 Chronic obstructive pulmonary disease, unspecified; I25.10 Atherosclerotic heart disease of native coronary artery without angina pectoris; L89.159 Pressure ulcer of sacral region, unspecified stage; L89.229 Pressure ulcer of left hip, unspecified stage; L89.219 Pressure ulcer of right hip, unspecified stage; L89.109 Pressure ulcer of unspecified part of back, unspecified stage; Z53.29 Procedure and treatment not carried out because of patient's decision for other reasons; M06.9 Rheumatoid arthritis, unspecified; M19.90 Unspecified osteoarthritis, unspecified site; Z79.899 Other long term (current) drug therapy; Z74.01 Bed confinement status; Z87.311 Personal history of (healed) other pathological fracture; Z87.891 Personal history of nicotine dependence; Z87.440 Personal history of urinary (tract) infections; Z90.710 Acquired absence of both cervix and uterus; Z98.2 Presence of cerebrospinal fluid drainage device; I34.0 Nonrheumatic mitral (valve) insufficiency; M48.55XD Collapsed vertebra, not elsewhere classified, thoracolumbar region, subsequent encounter for fracture with routine healing; E86.0 Dehydration; D32.0 Benign neoplasm of cerebral meninges; D64.9 Anemia, unspecified; A49.9 Bacterial infection, unspecified
CPT/HCPCS: 36415; 36600; 70030-TC; 71045; 83605; 83735; 84100; 84443; 85025; 85730; 87040; 87070; 87086; 93005; 93307; 94640; 94660; 94664; A4663; C1758; G0378; G0480-TC; J0360; J0456; J1885; J2405; J2543; J2920; J3370; J3475; J3480; J3490; J3590; J7030; J7050; J7060

== ENCOUNTER 2019-02-27 14:09 | Inpatient (IN) | payer MEDICARE, MEDICAID ==
[~2019-02-27] VITALS: Ht 152.4 cm; Wt 59.0 kg
[~2019-02-27 14:09] MED LIST changes: -HYDR-3326 PO; +TRAM50TA2 PO; +VORI200T PO
--- NOTE | 2019-02-27 15:10 | NUR ---
Pt.was seen by , family at bedside.
[2019-02-27 15:28] LABS: CREATININE 0.7 mg/dL (0.6-1.3); POTASSIUM 4.8 mmol/L (3.5-5.1)
[2019-02-27 15:34] LABS: BILIRUBIN,DIRECT 0.1 mg/dL (0.0-0.2); BILIRUBIN,TOTAL 0.3 mg/dL (0.2-1.0); TOTAL PROTEIN, SERUM 6.8 g/dL (6.4-8.2)
[2019-02-27 15:35] LABS: BASOPHILS % (AUTO) 0.2 % (0.0-2.0); EOSINOPHILS # (AUTO) 0.1 K/uL (0.0-0.7); EOSINOPHILS % (AUTO) 0.8 % (0.0-7.0); HEMATOCRIT 42.3 % (31.2-41.9); HEMOGLOBIN 12.8 g/dL (10.9-14.3); LYMPHOCYTES # (AUTO) 1.2 K/uL (20.0-40.0); LYMPHOCYTES % (AUTO) 9.1 % (20.5-51.5); MEAN CORPUSCULAR HEMOGLOBIN 27.5 uug (24.7-32.8); MEAN CORPUSCULAR HGB CONC 30 g/dL (32.3-35.6); MEAN CORPUSCULAR VOLUME 90.6 fL (75.5-95.3); MONOCYTES # (AUTO) 0.5 K/uL (2.0-10.0); MONOCYTES % (AUTO) 3.9 % (0.0-11.0); NEUTROPHILS # (AUTO) 10.9 K/uL (1.8-8.9); PLATELET COUNT (AUTO) 227 K/uL (179-408); RED BLOOD CELL COUNT(AUTO) 4.67 MIL/uL (3.63-4.92); WHITE BLOOD COUNT (AUTO) 12.7 K/uL (3.8-11.8)
--- NOTE | 2019-02-27 16:10 | NUR ---
STRAIGHT CATH DONE, PT.TOLERATED WELL, FAILY AT BEDSIDE.
[2019-02-27] MEDS ORDERED: PRED2.5T PO (16:15)
[2019-02-27 16:38] LABS: BAND % (MANUAL) 1 % (0-10); EOSINOPHILS % (MANUAL) 1 % (0-8); LYMPHOCYTES % (MANUAL) 8 % (20-40); MONOCYTES % (MANUAL) 3 % (2-10); NEUTROPHILS % (MANUAL) 87 % (42-75)
[2019-02-27 17:18] LABS: *BILIRUBIN,URIN NEGATIVE (NEGATIVE); *BLOOD, URINE NEGATIVE (NEGATIVE); *CLARITY,URINE SLIGHTLY CLOUDY (CLEAR); *COLOR,URINE YELLOW (YELLOW); *KETONES,URINE TRACE (NEGATIVE); *UROBILINOGEN,URINE 0.2 E.U./dl (NORMAL); LEUKOCYTE ESTERASE ,URINE 1+ (NEGATIVE); NITRITE, URINE NEGATIVE (NEGATIVE); UGLUCOSE NEGATIVE (NEGATIVE)
--- NOTE | 2019-02-27 17:25 | NUR ---
UPDATED PT.FAMILY WITH PLAN OF CARE AND LABS.RESOLT.AWAITING FOR AMITION TO TELE.
[2019-02-27] MEDS ORDERED: CEFTRIAXONE 1 G in IV DEXTROSE 5% 50 ML IV ONE (17:30)
[2019-02-27 17:35] LABS: BACTERIA,URINE FEW /HPF (NONE SEEN); RBC,URINE 0-3 /HPF (0-3); SQUAMOUS EPITHELIAL CELL,UR MODERATE /HPF (NONE SEEN); YEAST,URINE FEW /HPF (NONE SEEN)
[2019-02-27] MEDS ORDERED: CEFTRIAXONE /D5W 50ML IVPB **ER PYXIS IV ONE (17:38)
[2019-02-27] MEDS ORDERED: IV NORMAL SALINE 1000 ML BAG IV ONE (17:45)
--- NOTE | 2019-02-27 17:57 | NUR ---
WAS PAGED FOR FOR ADMITING.
--- NOTE | 2019-02-27 18:30 | NUR ---
PT.WENT TO CT, NO S/S OF ACUTE DISTRES.
--- NOTE | 2019-02-27 18:42 | NUR ---
DR.SANTA LAGUERRE WAS PAGED 2ND TIME FOR ADMITING.
[2019-02-27] MEDS ORDERED: ONDANSETRON 4 MG/2 ML VIAL IV PRN (18:45)
[2019-02-27] MEDS ORDERED: MAGNESIUM HYDROXIDE 30 ML LIQUID UDC PO PRN (18:45)
[2019-02-27] MEDS ORDERED: HYDROCODONE/APAP 5-325MG TABLET PO PRN (18:45)
[2019-02-27] MEDS ORDERED: Z GUARD REMEDY PASTE 57 GM TUBE TOP PRN (18:45)
--- NOTE | 2019-02-27 19:07 | NUR ---
Assumed care of patient. no acute distress noted. pending inpatient admission. Awaiting call back from [employer].
--- NOTE | 2019-02-27 19:50 | NUR ---
Report given to Yashira DA SILVA on Tele. Pt. admitted to Tele , under care of Dr. Nicholas Belongs List completed
--- NOTE | 2019-02-27 20:10 | NUR ---
PATIENT RECEIVED VIA GURNEY IN STABLE CONDITION. PATIENT IS ALERT AND ORIENTED X 1 PATIENT IS ON 1L OF 02 SATING AT 99% . PATIENT IS ACCOMPANIED BY , WITH NO BELONGINGS. PHYSICAL ASSESSMENT DONE. NOTED WITH MULTIPLE DRESSINGS ON L AND R HIP AND MID BACK . EXPLAINED TO THAT PER PROTOCOL WE HAVE TO TAKE PICTURES OF THE WOUNDS, REFUSED TO TAKE DRESSINGS OFF EXPLAINED THAT SHE RECEIVES SPECIAL TX AT HOME BY WOUND NURSE AND DOES NOT WANT TO TAKE IT OFF. ROTO GRAVURE PRESS OPERATOR NOTIFIED. ORIENTED TO ROOM , SAFETY PRECAUTIONS INITIATED, BED IN LOWEST POSITION AND LOCKED, SIDE RAILS UP X 2. INSISTS IN STAYING DURING THE NIGHT, SIGNED FOR AND UNDERSTANDS. CALL LIGHT WITHIN REACH,.
[2019-02-27 20:22] VITALS: BP 145/75
[2019-02-27] MEDS: TRAZODONE 100 MG TABLET PO PRN (23:12)
[2019-02-28] VITALS: BP 102/51
[2019-02-28 04:00] VITALS: BP 100/73
--- NOTE | 2019-02-28 07:56 | NUR ---
PATIENT RECEIVED IN STABLE CONDITION. PATIENT IS ALERT AND ORIENTED X 1 PATIENT IS ON 1L OF 02 SATING AT 99% . PATIENT IS ACCOMPANIED BY . NOTED WITH MULTIPLE DRESSINGS ON L AND R HIP AND MID BACK . , EXPLAINED THAT SHE RECEIVES SPECIAL TX AT HOME BY WOUND NURSE AND DOES NOT WANT TO TAKE IT OFF. ALUMINUM SIDING MECHANIC NOTIFIED. ORIENTED TO ROOM , SAFETY PRECAUTIONS INITIATED, BED IN LOWEST POSITION AND LOCKED, SIDE RAILS UP X 2. PT ON TELE MONITORING ATRIAL TACHYCARDIA. WILL CONTINUE TO MONITOR.
[2019-02-28] MEDS ORDERED: TRAMADOL HCL 50 MG TABLET PO PRN (08:45)
[2019-02-28] MEDS ORDERED: ALBUTEROL SULFATE 2.5 MG/3 ML NEBU NEB PRN (08:45)
[2019-02-28 08:53] LABS: BASOPHILS % (AUTO) 0.1 % (0.0-2.0); EOSINOPHILS # (AUTO) 0.2 K/uL (0.0-0.7); EOSINOPHILS % (AUTO) 1.7 % (0.0-7.0); HEMATOCRIT 35.6 % (31.2-41.9); HEMOGLOBIN 11.2 g/dL (10.9-14.3); LYMPHOCYTES % (AUTO) 22.5 % (20.5-51.5); MEAN CORPUSCULAR HEMOGLOBIN 28.5 uug (24.7-32.8); MEAN CORPUSCULAR HGB CONC 32 g/dL (32.3-35.6); MEAN CORPUSCULAR VOLUME 90.4 fL (75.5-95.3); MONOCYTES % (AUTO) 10.9 % (0.0-11.0); NEUTROPHILS # (AUTO) 5.9 K/uL (1.8-8.9); NEUTROPHILS % (AUTO) 64.8 % (38.5-71.5); PLATELET COUNT (AUTO) 205 K/uL (179-408); RED BLOOD CELL COUNT(AUTO) 3.94 MIL/uL (3.63-4.92); WHITE BLOOD COUNT (AUTO) 9.1 K/uL (3.8-11.8)
[2019-02-28 09:00] LABS: CARBON DIOXIDE 26 mmol/L (21-32); CHLORIDE 107 mmol/L (98-107); CREATININE 0.7 mg/dL (0.6-1.3); GLUCOSE 94 mg/dL (74-106); MAGNESIUM 1.7 mg/dL (1.8-2.4); PHOSPHOROUS 3.5 mg/dL (2.5-4.9); POTASSIUM 3.9 mmol/L (3.5-5.1); UREA NITROGEN, BLOOD 25 mg/dL (7-18)
[2019-02-28] MEDS: GABAPENTIN 100 MG CAPSULE PO SCH ×2 (09:53→17:00)
[2019-02-28] MEDS: DULOXETINE 60 MG CAPSULE.DR PO SCH (09:53)
[2019-02-28] MEDS: ACETAMINOPHEN 325 MG TABLET PO PRN (09:53)
[2019-02-28 10:57] VITALS: BP 100/55
[2019-02-28 11:10] VITALS: BP 123/59
--- NOTE | 2019-02-28 12:00 | NUR ---
PT RESTING COMFORTABLY IN BED. PT IS MEDICATION COMPLIANT. TELE MONITOR SINUS/SINUS TACH. NO ACUTE DISTRESS NOTED. NO SOB NOTED. PT ON O2@ 1 L/M VIA NC. FAMILY AT BEDSIDE. WOUND CARE NOT DONE PER FAMILY REQUEST. FAMILY TO TREAT PT'S WOUNDS. WILL ATTEMPT TO TAKE PICTURES AT THE SAME TIME FAMILY ATTENDS TO PT'S WOUND TREATMENT. WILL CONTINUE TO MONITOR. PT'S DAUGHTER WISHED TO SPEAK WITH DR. LAGUERRE.
[2019-02-28 15:03] VITALS: BP 124/58
[2019-02-28] MEDS ORDERED: BRIMONIDINE EYE DROP EACHEYE (15:48)
[2019-02-28] MEDS ORDERED: DORZ10DR10 EACHEYE (15:49)
[2019-02-28] MEDS ORDERED: LATA2.5D7 EACHEYE (15:50)
[2019-02-28] MEDS ORDERED: SIMBRINZA EACHEYE SCH (17:00)
[2019-02-28] MEDS ORDERED: EYE EACHEYE SCH (17:00)
[2019-02-28] MEDS: BRIMONIDINE 0.2% EACHEYE SCH (17:00)
[2019-02-28] MEDS: DORZOLAMIDE 2% EACHEYE SCH (17:00)
[2019-02-28] MEDS: CEFTRIAXONE 1 G in IV DEXTROSE 5% 50 ML IV SCH (17:59)
--- NOTE | 2019-02-28 18:00 | NUR ---
PT RESTING IN BED. FAMILY REFUSED EYE DROPS AND ORAL MEDS PT IS RESTING. NO ACUTE DISTRESS NOTED. NO SOB NOTED. WOUND CARE PICTURES TO BE TAKEN BY NOC RN WHEN FAMILY DOES WOUND CARE. DR LAGUERRE CONTACTED IN ORDER TO CONTINUE PLAVIX, PREDNISONE AND PREVACID. ORDERS ENTERED. PT IN TELE MONITORING WITH SINUS RHYTHM. WILL GIVE REPORT ACCORDINGLY.
[2019-02-28] MEDS ORDERED: MISCELLANEOUS MED PO SCH (18:45)
[2019-02-28] MEDS ORDERED: predniSONE 2.5 MG TABLET PO SCH (18:45)
[2019-02-28] MEDS ORDERED: FLUCONAZOLE 200 MG/NS 100ML IV 100 MG in PREMIXED 1 EACH IV SCH (19:30)
[2019-02-28] MEDS: CLOPIDOGREL 75 MG TABLET PO SCH (20:28)
[2019-02-28] MEDS: LATANOPROST EACHEYE SCH (20:28)
[2019-02-28] MEDS: ATORVASTATIN 10 MG TABLET PO SCH (20:28)
[2019-02-28] MEDS: FLUCONAZOLE 100 MG TABLET PO SCH (20:28)
[2019-02-28] MEDS: predniSONE 5 MG TABLET PO SCH (20:36)
--- NOTE | 2019-02-28 21:45 | NUR ---
Family did the wound care using their own supplies. Refused to let RN do the wound care. RN assisted with turning the patient and took wound pictures.
[2019-03-01] MEDS: PANTOPRAZOLE SODIUM 40 MG TABLET.DR PO SCH ×2 (06:19→16:16)
[2019-03-01 06:41] LABS: BASOPHILS % (AUTO) 0.2 % (0.0-2.0); EOSINOPHILS # (AUTO) 0.1 K/uL (0.0-0.7); HEMATOCRIT 39.7 % (31.2-41.9); HEMOGLOBIN 12.3 g/dL (10.9-14.3); LYMPHOCYTES # (AUTO) 1.4 K/uL (20.0-40.0); LYMPHOCYTES % (AUTO) 13.8 % (20.5-51.5); MEAN CORPUSCULAR HEMOGLOBIN 28.4 uug (24.7-32.8); MEAN CORPUSCULAR HGB CONC 31 g/dL (32.3-35.6); MEAN CORPUSCULAR VOLUME 91.5 fL (75.5-95.3); MONOCYTES # (AUTO) 0.7 K/uL (2.0-10.0); MONOCYTES % (AUTO) 7.1 % (0.0-11.0); NEUTROPHILS # (AUTO) 8.1 K/uL (1.8-8.9); NEUTROPHILS % (AUTO) 77.9 % (38.5-71.5); PLATELET COUNT (AUTO) 210 K/uL (179-408); RED BLOOD CELL COUNT(AUTO) 4.34 MIL/uL (3.63-4.92); WHITE BLOOD COUNT (AUTO) 10.5 K/uL (3.8-11.8)
[2019-03-01 06:46] LABS: CREATININE 0.6 mg/dL (0.6-1.3); PHOSPHOROUS 3.8 mg/dL (2.5-4.9); POTASSIUM 4.2 mmol/L (3.5-5.1)
--- NOTE | 2019-03-01 07:10 | NUR ---
PT. RECEIVED IN STABLE CONDITION. PATIENT IS ALERT AND ORIENTED TO PERSON. NO SHORTNESS OF BREATH NOTED. PATIENT'S IN THE ROOM. BED IS LOCKED AND 2 SIDE RAILS UP. PT IS ON CONTINUOUS PILLOWCASE CUTTER. WILL CONTINUE TO MONITOR PATIENT.
[2019-03-01 07:41] LABS: EOSINOPHILS % (MANUAL) 1 % (0-8); LYMPHOCYTES % (MANUAL) 21 % (20-40); MONOCYTES % (MANUAL) 8 % (2-10); NEUTROPHILS % (MANUAL) 69 % (42-75)
[2019-03-01] MEDS: GABAPENTIN 100 MG CAPSULE PO SCH ×2 (08:14→16:14)
[2019-03-01] MEDS: CLOPIDOGREL 75 MG TABLET PO SCH (08:14)
[2019-03-01] MEDS: predniSONE 5 MG TABLET PO SCH (08:14)
[2019-03-01] MEDS: DULOXETINE 60 MG CAPSULE.DR PO SCH (08:14)
[2019-03-01] MEDS: ACETAMINOPHEN 325 MG TABLET PO PRN ×2 (08:14→16:14)
[2019-03-01] MEDS: DORZOLAMIDE 2% EACHEYE SCH ×3 (08:25→16:17)
[2019-03-01] MEDS: BRIMONIDINE 0.2% EACHEYE SCH ×3 (08:25→16:17)
--- NOTE | 2019-03-01 09:30 | NUR ---
MORPHINE REFUSED FROM PATIENTS FAMILY, 1MG OF MORPHINE WASTED.
--- NOTE | 2019-03-01 11:00 | NUR ---
PATIENT'S FAMILY REFUSED TO CHECK VITAL SIGNS.
[2019-03-01 15:52] VITALS: BP 151/69
[2019-03-01] MEDS: CEFTRIAXONE 1 G in IV DEXTROSE 5% 50 ML IV SCH (16:27)
--- NOTE | 2019-03-01 18:29 | NUR ---
Patient accompanied by family member at the bedside throughout the entire shift. Patient was intermittently asleep in bed throughout shift. Family wanted pt. to sleep with minimal disruptions. Checked on patient while making patient rounds. Patient exhibited no signs and symptoms of any acute distress, or any shortness of breath. Vital signs checked. Placed an air mattress underneath the patient as well as DVT pumps on bilateral lower extremities.
[2019-03-01] MEDS: MORPHINE SULFATE 2 MG/1 ML DISP.SYRIN IV PRN ×2 (18:32→23:26)
[2019-03-01] MEDS: ATORVASTATIN 10 MG TABLET PO SCH (20:32)
[2019-03-01] MEDS: FLUCONAZOLE 100 MG TABLET PO SCH (20:32)
[2019-03-01] MEDS: LATANOPROST EACHEYE SCH (20:35)
[2019-03-01 20:43] VITALS: BP 124/70
--- NOTE | 2019-03-01 22:58 | NUR ---
Patient ate dinner brought by the family, took all her PM meds and PRN Milk of magnesia for constipation. pain is decreasing after morphine. family is asking to try an enema in the AM if MOM is ineffective. Mid-line was flushed and locked. Patient is sleeping now, no distress noted, lungs are clear. Comfort and safety measures are in place.
[2019-03-02 00:04] VITALS: BP 134/68
[2019-03-02] MEDS: TRAZODONE 100 MG TABLET PO PRN (01:31)
--- NOTE | 2019-03-02 02:00 | NUR ---
patient is awake, complaining of inability to sleep and asking for sleeping meds, pain is 2/10. Trazodone 150mg given, drank some water and ate 5 spoons of pudding. Will continue to monitor.
--- NOTE | 2019-03-02 07:10 | NUR ---
RECEIVED PATIENT RESTING IN BED. NO ACUTE DISTRESS NOTED. BED IN LOWEST POSITION, SIDE RAILS UP X2, CALL LIGHT WITHIN REACH. AT BEDSIDE. WILL CONTINUE TO MONITOR.
[2019-03-02] MEDS: PANTOPRAZOLE SODIUM 40 MG TABLET.DR PO SCH (07:28)
[2019-03-02 07:54] LABS: CARBON DIOXIDE 32 mmol/L (21-32); CHLORIDE 111 mmol/L (98-107); CREATININE 0.6 mg/dL (0.6-1.3); GLUCOSE 131 mg/dL (74-106); MAGNESIUM 2.6 mg/dL (1.8-2.4); PHOSPHOROUS 2.9 mg/dL (2.5-4.9); POTASSIUM 4.4 mmol/L (3.5-5.1); UREA NITROGEN, BLOOD 29 mg/dL (7-18)
[2019-03-02 07:58] LABS: BASOPHILS # (AUTO) 0.1 K/uL (0.0-8.0); EOSINOPHILS # (AUTO) 0.1 K/uL (0.0-0.7); HEMOGLOBIN 11.4 g/dL (10.9-14.3); LYMPHOCYTES # (AUTO) 1.8 K/uL (20.0-40.0); LYMPHOCYTES % (AUTO) 19.4 % (20.5-51.5); MEAN CORPUSCULAR HEMOGLOBIN 28.3 uug (24.7-32.8); MEAN CORPUSCULAR HGB CONC 31 g/dL (32.3-35.6); MEAN CORPUSCULAR VOLUME 91.8 fL (75.5-95.3); MONOCYTES # (AUTO) 0.7 K/uL (2.0-10.0); MONOCYTES % (AUTO) 7.4 % (0.0-11.0); NEUTROPHILS # (AUTO) 6.6 K/uL (1.8-8.9); NEUTROPHILS % (AUTO) 71.2 % (38.5-71.5); PLATELET COUNT (AUTO) 165 K/uL (179-408); RED BLOOD CELL COUNT(AUTO) 4.03 MIL/uL (3.63-4.92); WHITE BLOOD COUNT (AUTO) 9.3 K/uL (3.8-11.8)
[2019-03-02] MEDS: BRIMONIDINE 0.2% EACHEYE SCH ×2 (09:00→09:27)
[2019-03-02] MEDS: GABAPENTIN 100 MG CAPSULE PO SCH ×2 (09:00→09:28)
[2019-03-02] MEDS: CLOPIDOGREL 75 MG TABLET PO SCH ×2 (09:00→09:28)
[2019-03-02] MEDS: DULOXETINE 60 MG CAPSULE.DR PO SCH ×2 (09:00→09:27)
[2019-03-02] MEDS: DORZOLAMIDE 2% EACHEYE SCH ×2 (09:00→09:27)
--- NOTE | 2019-03-02 11:00 | NUR ---
PATIENTS FAMILY REFUSED US TO REMOVE WOUND DRESSING TO TAKE PICTURES OF WOUNDS.
[2019-03-02 11:04] VITALS: BP 101/56
--- NOTE | 2019-03-02 11:55 | NUR ---
DISCHARGED PATIENT TO HOME. PATIENT DISCHARGED VIA AMBULANCE. D/C INSTRUCTIONS REVIEWED WITH PATIENTS DAUGHTER. NO ACUTE DISTRESS.
== END 2019-03-02 12:00 | disposition home or self-care (01) | DRG 871 ==
LOC: ER 14:09 → TELE3 19:56
PROVIDERS: ADMIT Student in an Organized Health Care Education/Training Program; ATTEND Student in an Organized Health Care Education/Training Program
PROC: 05H933Z Insertion of Infusion Device into Right Brachial Vein, Percutaneous Approach (ICD-10-PCS; principal; 2019-02-27)
DX: A41.9 Sepsis, unspecified organism (principal); G93.41 Metabolic encephalopathy; E43 Unspecified severe protein-calorie malnutrition; R53.2 Functional quadriplegia; N39.0 Urinary tract infection, site not specified; J96.12 Chronic respiratory failure with hypercapnia; J96.11 Chronic respiratory failure with hypoxia; J98.11 Atelectasis; I50.32 Chronic diastolic (congestive) heart failure; D68.59 Other primary thrombophilia; G35 Multiple sclerosis; R65.20 Severe sepsis without septic shock; R13.10 Dysphagia, unspecified; D32.9 Benign neoplasm of meninges, unspecified; Z98.2 Presence of cerebrospinal fluid drainage device; M06.9 Rheumatoid arthritis, unspecified; I25.2 Old myocardial infarction; Z87.440 Personal history of urinary (tract) infections; D32.0 Benign neoplasm of cerebral meninges; K59.00 Constipation, unspecified; J84.10 Pulmonary fibrosis, unspecified; J44.9 Chronic obstructive pulmonary disease, unspecified; M19.90 Unspecified osteoarthritis, unspecified site; L89.229 Pressure ulcer of left hip, unspecified stage; L89.219 Pressure ulcer of right hip, unspecified stage; M80.88XD Other osteoporosis with current pathological fracture, vertebra(e), subsequent encounter for fracture with routine healing; I11.0 Hypertensive heart disease with heart failure; I25.10 Atherosclerotic heart disease of native coronary artery without angina pectoris; F17.210 Nicotine dependence, cigarettes, uncomplicated; I49.1 Atrial premature depolarization; F41.9 Anxiety disorder, unspecified; G31.84 Mild cognitive impairment of uncertain or unknown etiology; M24.50 Contracture, unspecified joint
CPT/HCPCS: 36415; 70030-TC; 70450; 71045; 83605; 83735; 84100; 85025; 85730; 87040; 87086; 93005; A4663; C1758; G0378; J0696; J2270; J7030; J7060; J7512

== ENCOUNTER 2019-06-13 20:47 | Inpatient (IN) | payer MEDICARE, OTHER ==
[~2019-06-13] VITALS: Ht 147.3 cm; Wt 37.8 kg
[~2019-06-13 20:47] MED LIST changes: +BRIMONIDINE EYE DROP EACHEYE; -BRIN8DRO EACHEYE; -CLOPIDOGREL 75 MG TABLET PO; +DORZ10DR10 EACHEYE; +LATA2.5D7 EACHEYE; +PRED2.5T PO; -TRAZ-214 PO; -VORI200T PO
[2019-06-13] MEDS ORDERED: LEVO500T2 PO (21:03)
[2019-06-13] MEDS ORDERED: IV NORMAL SALINE 1000 ML BAG IV ONE (21:15)
[2019-06-13] MEDS ORDERED: ONDANSETRON 4 MG/2 ML VIAL IV ONE (21:15)
[2019-06-13] MEDS ORDERED: ONDANSETRON 4 MG/2 ML VIAL ONE (21:20)
[2019-06-13 21:44] LABS: BASOPHILS % (AUTO) 0.5 % (0.0-2.0); EOSINOPHILS % (AUTO) 0.3 % (0.0-7.0); HEMATOCRIT 38.2 % (31.2-41.9); HEMOGLOBIN 11.6 g/dL (10.9-14.3); LYMPHOCYTES # (AUTO) 3.4 K/uL (20.0-40.0); LYMPHOCYTES % (AUTO) 36.1 % (20.5-51.5); MEAN CORPUSCULAR HEMOGLOBIN 26.8 uug (24.7-32.8); MEAN CORPUSCULAR HGB CONC 30 g/dL (32.3-35.6); MEAN CORPUSCULAR VOLUME 88.5 fL (75.5-95.3); MONOCYTES # (AUTO) 0.8 K/uL (2.0-10.0); MONOCYTES % (AUTO) 8.6 % (0.0-11.0); NEUTROPHILS # (AUTO) 5.1 K/uL (1.8-8.9); NEUTROPHILS % (AUTO) 54.5 % (38.5-71.5); PLATELET COUNT (AUTO) 349 K/uL (179-408); RED BLOOD CELL COUNT(AUTO) 4.32 MIL/uL (3.63-4.92); WHITE BLOOD COUNT (AUTO) 9.3 K/uL (3.8-11.8)
[2019-06-13 21:46] LABS: BILIRUBIN,DIRECT 0.2 mg/dL (0.0-0.2); BILIRUBIN,TOTAL 0.4 mg/dL (0.2-1.0); CREATININE 0.7 mg/dL (0.6-1.3); POTASSIUM 4.6 mmol/L (3.5-5.1); TOTAL PROTEIN, SERUM 6.5 g/dL (6.4-8.2)
[2019-06-13 22:01] LABS: BAND % (MANUAL) 4 % (0-10); EOSINOPHILS % (MANUAL) 3 % (0-8); LYMPHOCYTES % (MANUAL) 14 % (20-40); MONOCYTES % (MANUAL) 4 % (2-10); NEUTROPHILS % (MANUAL) 73 % (42-75)
[2019-06-13 22:02] LABS: METAMYELOCYTES % 2 % (0-1)
--- NOTE | 2019-06-13 22:24 | NUR ---
Pt's daughter refuses to have in-and-out catheter placed in mother for urinalysis. aware.
--- NOTE | 2019-06-13 23:53 | NUR ---
Pending CT head results. Pt appears in no distress. Family at bedside. Pt states she feels better & does not want to be admitted to the hospital.
--- NOTE | 2019-06-14 00:04 | NUR ---
Pt IV line accidentally removed. Pt's daughter refuses to have new IV placed at this time due to pt being hardstick. MD aware. Pt to have PICC line or midline placed in the AM, Pick Up Man notified.
--- NOTE | 2019-06-14 00:20 | NUR ---
ALICIA CALLED (GILMA) DX PNEUMONIA M/S
[2019-06-14] MEDS ORDERED: ONDANSETRON ODT 4 MG TAB.RAPDIS ONE (00:25)
--- NOTE | 2019-06-14 00:36 | NUR ---
Pt. admitted to Med/Surg , under care of Dr. Holder. Diagnosis: Pneumonia. Belongs List completed
[2019-06-14] MEDS ORDERED: HYDROCODONE/APAP 5-325MG TABLET PO PRN (00:45)
[2019-06-14] MEDS ORDERED: Z GUARD REMEDY PASTE 57 GM TUBE TOP PRN (00:45)
[2019-06-14] MEDS ORDERED: ONDANSETRON ODT 4 MG TAB.RAPDIS SL ONE (00:45)
[2019-06-14] MEDS ORDERED: MAGNESIUM HYDROXIDE 30 ML LIQUID UDC PO PRN (00:45)
[2019-06-14] MEDS ORDERED: ACETAMINOPHEN 325 MG TABLET PO PRN (00:45)
--- NOTE | 2019-06-14 00:48 | NUR ---
Pt & family refused to have ammonia blood sample drawn, states they want to have it drawn when PICC line placed. Pt's daughter also refuses to have pressure sores checked. States they have home nurse who just put dressing and doesnt want it to be checked at this time. Addendum: 06/14/19 at [address] Brown of refusal of pt & family for blood draw.
[2019-06-14] MEDS ORDERED: VANCOMYCIN IV 750 MG in IV DEXTROSE 5% 250 ML IV ONE ×2 (01:00→08:00)
[2019-06-14 01:13] VITALS: BP 112/59
--- NOTE | 2019-06-14 01:25 | NUR ---
PATIENT ARRIVE ON UNIT VIA GURNEY. MEDICAL SURGICAL PATIENT. ALERT AND ORIENTED X 3. FARSI SPEAKING. NO C/O PAIN AT THIS TIME. ORDER FOR MIDLINE INSERTION PENDING. PATIENT HAS SKIN ULCER X 4 OF BACK THAT FAMILY AND PATIENT REFUSE TO ALLOW THIS NURSE TO REMOVE THE DRESSING OF TO TAKE PICTURES. FAMILY STATES THAT THEY TOOK PATIENT TO "WOUND CARE CLINIC TODAY, AND THAT THEY DO NOT WANT THE DRESSING REMOVED TO BE CLEANED FOR AT LEAVE 3 DAYS". THIS NURSE IS UNABLE TO IDENTIFY THE DEPTH AND SEVERITY OF THE ULCER AT THIS TIME. THE PATIENT HAS TWO ULCER ON EITHER HIP, ONE ON HER SACRUM, AND A FORTH ON HER MID BACK. PATIENT IS NAUSEOUS AND SPIT UP BILE DURING ASSESSMENT. ZOFRAN GIVEN IN ER. WILL CONTINUE TO MONITOR. AIR MATRESS ORDERED DUE TO PATIENT IMMOBILITY. DAUGHTER AND BEDSIDE. STATES THAT HER MOM IS NOT TO BE GIVEN NORCO 5/325 BECAUSE IT MAKES HER MOM "UNCOMFORTABLE". SIDE RAILS UP BILATERALLY. WILL CONTINUE TO MONITOR.
[2019-06-14] MEDS ORDERED: TRAZODONE 100 MG TABLET PO PRN (02:00)
[2019-06-14 04:30] VITALS: BP 104/54
[2019-06-14] MEDS ORDERED: CEFEPIME HCL 2 G in IV DEXTROSE 5% 100 ML IV SCH ×2 (06:00→09:00)
--- NOTE | 2019-06-14 06:27 | NUR ---
Patient slept well during the night. No emesis during the night. Midline insertion pending. No C/O pain at this time. Will continue to monitor.
[2019-06-14 07:01] LABS: HEMATOCRIT 36.1 % (31.2-41.9); HEMOGLOBIN 10.7 g/dL (10.9-14.3); MEAN CORPUSCULAR HEMOGLOBIN 26.1 uug (24.7-32.8); MEAN CORPUSCULAR HGB CONC 30 g/dL (32.3-35.6); MEAN CORPUSCULAR VOLUME 88.2 fL (75.5-95.3); PLATELET COUNT (AUTO) 322 K/uL (179-408); RED BLOOD CELL COUNT(AUTO) 4.09 MIL/uL (3.63-4.92); WHITE BLOOD COUNT (AUTO) 11.6 K/uL (3.8-11.8)
[2019-06-14 07:13] LABS: ALANINE AMINOTRANSFERASE 12 U/L (14-59); ALKALINE PHOSPHATASE 538 U/L (50-136); ASPARTATE AMINOTRANSFERASE 25 U/L (15-37); BILIRUBIN,TOTAL 0.5 mg/dL (0.2-1.0); CARBON DIOXIDE 29 mmol/L (21-32); CHLORIDE 108 mmol/L (98-107); CREATININE 0.5 mg/dL (0.6-1.3); GLUCOSE 72 mg/dL (74-106); POTASSIUM 4.3 mmol/L (3.5-5.1); TOTAL PROTEIN, SERUM 5.8 g/dL (6.4-8.2)
[2019-06-14 07:24] LABS: UREA NITROGEN, BLOOD 20 mg/dL (7-18)
--- NOTE | 2019-06-14 07:30 | NUR ---
RECEIVED PATIENT IN BED AWAKE, AOX2. AT BEDSIDE. DENIES SOB AT THIS TIME. COMPLAINS OF GENERALIZED PAIN. WILL GIVE PRN MEDICATION ORDERED. NO IV ACCES AT THIS TIME. PATIENT HAS ORDER FOR MIDLINE INSERTION. ANTIBIOTICS WILL BE GIVEN SOON IV ACCESS IS IN PLACE. PATIENT AND REFUSED DRESSING CHANGE TO MULTIPLE PRESSURE WOUNDS AND REFUSED TO HAVE PICTURE. THERE IS A DRESSING OVER THE SACRUM, BILATERAL HIPS AND MID BACK IN PLACE. STATED THAT THE WOUNDS HAVE BEEN CHANGED YESTERDAY AT HOME. SAFETY AND FALL PRECAUTIONS IN PLACE. CALL LIGHT IN REACH. BED IN LOW POSITION AND LOCKED. WILL CONTINUE TO MONITOR.
[2019-06-14 08:27] LABS: EOSINOPHILS % (MANUAL) 3 % (0-8); LYMPHOCYTES % (MANUAL) 15 % (20-40); MONOCYTES % (MANUAL) 8 % (2-10); NEUTROPHILS % (MANUAL) 74 % (42-75)
--- NOTE | 2019-06-14 09:05 | NUR ---
Clinical Pharmacy Note: Vancomycin Dosing per Pharmacy Subjective: Vancomycin IV to start on this 73 yo female patient for empiric tx (per ER MD note- pna) Objective: BUN 20/Scr 0.5 WBC 11.6 Temperature 98.7 Assessment/Plan: Will start vancomycin 500mg IVPB Q32hr for a predicted vancomycin steady state trough level of 16 mcg/ml. 1st dose today at 1000. Will draw a vancomycin trough level prior to the 4th dose of vancomycin (not ordered yet). Will monitor renal function and adjust vancomycin dose, if needed, should renal function change significantly. Will follow daily.
[2019-06-14] MEDS ORDERED: VANCOMYCIN IV 500 MG in IV DEXTROSE 5% 100 ML IV SCH (10:00)
[2019-06-14 11:45] VITALS: BP 104/63
--- NOTE | 2019-06-14 13:08 | NUR ---
AM VANCO AND MAXEPINE VIA IVPB NOT ADMINISTERED BECAUSE PATIENT DOES NOT HAVE AN IV LINE. MIDLINE TO BE INSERTED. DR. CARTER AWARE.
[2019-06-14] MEDS ORDERED: PIPERACILLIN SODIUM/TAZOBACTAM 3.375 G in IV DEXTROSE 5% 50 ML IV SCH (14:00)
[2019-06-14] MEDS: PIPERACILLIN/TAZOBACTAM/D5W 3.375 G in IV DEXTROSE 5% 50 ML IV SCH ×2 (15:05→21:47)
[2019-06-14] MEDS: ONDANSETRON 4 MG/2 ML VIAL IV PRN (15:06)
[2019-06-14 15:48] VITALS: BP 123/66
[2019-06-14] MEDS: LORAZEPAM 2 MG/1 ML VIAL IV PRN ×2 (16:07→16:59)
--- NOTE | 2019-06-14 19:02 | NUR ---
PATIENT AOX1-2. DAUGHTER AT BEDSIDE. PATIENT VITAL SIGNS STABLE THROUGHOUT THE SHIFT. PRM MEDICATIONS GIVEN ORDERED. PATIENT UA AND C AND S WAS ABLE TO OBTAIN AND SENT TO LAB. PICTURE OF THE VAGINAL AREA TAKEN OF WOUND. FAMILY IS STILL REFUSING TO TAKE THE PRESSURE ULCER DRESINGS X4 OFF TO INSPECT AND TAKE PICTURE OF THE WOUNDS. WILL REPORT TO CULTURAL HISTORIAN NURSE.
[2019-06-14 19:24] LABS: *BILIRUBIN,URIN 1+ (NEGATIVE); *CLARITY,URINE CLOUDY (CLEAR); *KETONES,URINE TRACE (NEGATIVE); *UROBILINOGEN,URINE 0.2 E.U./dl (NORMAL); LEUKOCYTE ESTERASE ,URINE 1+ (NEGATIVE); NITRITE, URINE NEGATIVE (NEGATIVE); PH,URINE 5.5 (5.0-8.0); UGLUCOSE NEGATIVE (NEGATIVE)
[2019-06-14 19:44] LABS: *BLOOD, URINE TRACE (NEGATIVE); *COLOR,URINE DARK YELLOW (YELLOW)
[2019-06-14 19:46] LABS: BACTERIA,URINE MANY /HPF (NONE SEEN); SQUAMOUS EPITHELIAL CELL,UR MANY /HPF (NONE SEEN); WBC,URINE 50-80 /HPF (0-3)
[2019-06-14 20:13] VITALS: BP 130/70
--- NOTE | 2019-06-14 20:30 | NUR ---
Patient seen and examined by Dr. Timmons w/ n.o placed. Patient's 2 daughters were at bedside and spoke w/ . Patient placed on Tele monitor and kept NPO. IVF started. Patient's daughter informed me that her mom is also constipated. Will give PRN Dulcolax supp.
[2019-06-14] MEDS: IV D5/ 0.9% NACL 1,000 ML IV PRN (21:04)
[2019-06-14] MEDS: BISACODYL 10 MG SUPP.RECT RC PRN (21:22)
[2019-06-15] VITALS (7 sets, daily range): BP systolic 118–151; BP diastolic 56–94
--- NOTE | 2019-06-15 | NUR ---
Patient's at bedside and informed me that he doesn't want his to be turned and repositioned on her L side because he noticed that patient's O2 sat level drops in this position. Risks and benefits explained to
[2019-06-15] MEDS: PIPERACILLIN/TAZOBACTAM/D5W 3.375 G in IV DEXTROSE 5% 50 ML IV SCH ×3 (05:59→21:13)
[2019-06-15 06:38] LABS: BASOPHILS # (AUTO) 0.1 K/uL (0.0-8.0); BASOPHILS % (AUTO) 1.1 % (0.0-2.0); EOSINOPHILS # (AUTO) 0.2 K/uL (0.0-0.7); EOSINOPHILS % (AUTO) 1.2 % (0.0-7.0); HEMATOCRIT 37.1 % (31.2-41.9); HEMOGLOBIN 10.6 g/dL (10.9-14.3); LYMPHOCYTES # (AUTO) 0.9 K/uL (20.0-40.0); LYMPHOCYTES % (AUTO) 6.5 % (20.5-51.5); MEAN CORPUSCULAR HEMOGLOBIN 25.8 uug (24.7-32.8); MEAN CORPUSCULAR HGB CONC 29 g/dL (32.3-35.6); MONOCYTES # (AUTO) 1.4 K/uL (2.0-10.0); MONOCYTES % (AUTO) 10.6 % (0.0-11.0); NEUTROPHILS # (AUTO) 10.7 K/uL (1.8-8.9); NEUTROPHILS % (AUTO) 80.6 % (38.5-71.5); PLATELET COUNT (AUTO) 321 K/uL (179-408); RED BLOOD CELL COUNT(AUTO) 4.12 MIL/uL (3.63-4.92); WHITE BLOOD COUNT (AUTO) 13.3 K/uL (3.8-11.8)
--- NOTE | 2019-06-15 06:53 | NUR ---
Patient slept well. On O2 at 2lpm via NC saturating at 97%. Midline on HASMUKH intact and patent w/ IVF infusing. Sinus tachy on Tele monitor at 103 bpm. All needs attended. Will endorse accordingly
[2019-06-15 07:13] LABS: BILIRUBIN,TOTAL 0.5 mg/dL (0.2-1.0); CREATININE 0.7 mg/dL (0.6-1.3); MAGNESIUM 1.8 mg/dL (1.8-2.4); PHOSPHOROUS 3.9 mg/dL (2.5-4.9); POTASSIUM 3.9 mmol/L (3.5-5.1); TOTAL PROTEIN, SERUM 5.8 g/dL (6.4-8.2)
[2019-06-15 07:44] LABS: LYMPHOCYTES % (MANUAL) 9 % (20-40); METAMYELOCYTES % 1 % (0-1); MONOCYTES % (MANUAL) 12 % (2-10); MYELOCYTES % 2 % (0-0); NEUTROPHILS % (MANUAL) 76 % (42-75)
--- NOTE | 2019-06-15 08:00 | NUR ---
Received pt. resting in bed with family at bedside. Pt. is on tele monitor sinus rhythm with HR in 90s. Pt. on 2 L NC. Saturating at 95. Family states pt. is in pain and would like tylenol and suppository as pt. has not had large BM. Pt has HASMUKH midline running prescribed fluids. Safety measures in place. call light within reach. will continue to monitor pt.
[2019-06-15] MEDS ORDERED: ALBUTEROL SULFATE 2.5 MG/3 ML NEBU NEB PRN (09:45)
[2019-06-15] MEDS: ACETAMINOPHEN 650 MG SUPP.RECT RC PRN ×2 (10:00→16:20)
--- NOTE | 2019-06-15 10:00 | NUR ---
aware that pt.'s family wants pt. to have oral tylenol as pt. is able to drink water and ice. Dr. Valadez aware and gave telephone order for oral tylenol. However, when telling family Dr. kevined oral tylenol family stated pt. spit up water and wants to continue with suppository and no oral medication. Provided pt. with tylenol suppository and ducalox suppository
[2019-06-15] MEDS: BISACODYL 10 MG SUPP.RECT RC PRN (11:22)
--- NOTE | 2019-06-15 12:24 | NUR ---
Spoke to clinical technologist who stated when chest ultrasound done there is moderate pleural effusion; however not accessible due to lung. Called Dr. Rasmussen to report message and he stated for radiologist to document if unable to access it. digital field service technician called back and said waiting for radiologist to have final say, if they do want to proceed with thoracentesis to receive consent form DPOA. Spoke to daughter, who stated she wanted to speak with the doctor before giving consent. department director aware.
[2019-06-15] MEDS ORDERED: MAGNESIUM CITRATE 296 ML BOTTLE PO ONE (14:15)
--- NOTE | 2019-06-15 14:55 | NUR ---
doctor and technical manager at bedside. Not going to go forward with thoracentesis because not enough fluid via ultrasound. Will make family aware. New order for mag citrate orally to be given by daughter a little at a time Dr. Valadez's order.
[2019-06-15] MEDS: ONDANSETRON 4 MG/2 ML VIAL IV PRN (16:20)
--- NOTE | 2019-06-15 17:55 | NUR ---
Pt. resting in bed with family at bedside. Repositioned pt. throughout the day; however family does not want to change wound dressings as they have their own wound nurse. Safety measures in place. Call light within reach. Will continue to monitor pt.
[2019-06-16] MEDS: ACETAMINOPHEN 650 MG SUPP.RECT RC PRN ×3 (00:13→19:04)
[2019-06-16] MEDS: IV D5/ 0.9% NACL 1,000 ML IV PRN ×2 (01:44→20:26)
[2019-06-16 01:51] VITALS: BP 146/65
[2019-06-16] MEDS: PIPERACILLIN/TAZOBACTAM/D5W 3.375 G in IV DEXTROSE 5% 50 ML IV SCH ×3 (05:23→22:18)
[2019-06-16 06:25] VITALS: BP 110/56
[2019-06-16 06:47] LABS: BASOPHILS % (AUTO) 0.3 % (0.0-2.0); EOSINOPHILS # (AUTO) 0.1 K/uL (0.0-0.7); EOSINOPHILS % (AUTO) 0.9 % (0.0-7.0); HEMATOCRIT 35.2 % (31.2-41.9); HEMOGLOBIN 10.3 g/dL (10.9-14.3); LYMPHOCYTES # (AUTO) 4.3 K/uL (20.0-40.0); LYMPHOCYTES % (AUTO) 53.1 % (20.5-51.5); MEAN CORPUSCULAR HEMOGLOBIN 26.4 uug (24.7-32.8); MEAN CORPUSCULAR HGB CONC 29 g/dL (32.3-35.6); MEAN CORPUSCULAR VOLUME 90.2 fL (75.5-95.3); MONOCYTES # (AUTO) 0.6 K/uL (2.0-10.0); MONOCYTES % (AUTO) 6.9 % (0.0-11.0); NEUTROPHILS # (AUTO) 3.2 K/uL (1.8-8.9); NEUTROPHILS % (AUTO) 38.8 % (38.5-71.5); PLATELET COUNT (AUTO) 251 K/uL (179-408); WHITE BLOOD COUNT (AUTO) 8.2 K/uL (3.8-11.8)
[2019-06-16 07:05] LABS: BILIRUBIN,TOTAL 0.4 mg/dL (0.2-1.0); CREATININE 0.6 mg/dL (0.6-1.3); MAGNESIUM 2.1 mg/dL (1.8-2.4); PHOSPHOROUS 3.4 mg/dL (2.5-4.9); POTASSIUM 3.4 mmol/L (3.5-5.1); TOTAL PROTEIN, SERUM 5.6 g/dL (6.4-8.2)
--- NOTE | 2019-06-16 08:00 | NUR ---
Received pt. resting in bed with family at bedside. no acute distress or sob noted. Pt. is on tele monitor sinus rhythm . Pt. on 1L/M NC. Saturating at 95. Pt has HASMUKH midline running prescribed fluids. Safety measures in place. call light within reach. will continue to monitor pt.
--- NOTE | 2019-06-16 08:00 | NUR ---
ATTEMPTED ABG PUNCTURE. UNABLE TO OBTAIN AFTER 1 TRY. FAMILY MEMBER REFUSED TO RETRY PUNCTURE. NURSE AWARE.
[2019-06-16 10:09] LABS: HEPATITIS B SURFACE AB Non Reactive (.)
[2019-06-16] MEDS ORDERED: POTASSIUM CHLORIDE 50 ML IV SCH (11:00)
[2019-06-16 11:36] VITALS: BP 113/60
--- NOTE | 2019-06-16 12:00 | NUR ---
pt resting comfortably in bed. no acute distress or sob noted. pain meds administered. family at bedside. iv line patent and flushed. pt remains npo. wpt on tele monitoring sinus rhythm. will continue to monitor for safety and comfort.
[2019-06-16 16:00] VITALS: BP 141/69
--- NOTE | 2019-06-16 18:00 | NUR ---
pt resting in bed. pt reposition. pain meds administered. no acute distress or sob noted. pt on o2 at 1l/m with sats of 93%. family at bedside. pt had 2 bms.bed locked and in low position. no wound care per family. will give report accordingly to incoming shift nurse.
[2019-06-16 20:45] VITALS: BP 139/62
[2019-06-16] MEDS ORDERED: BENZOCAINE/MENTH/CETYLPYRD LOZENGE MM PRN (22:00)
[2019-06-16] MEDS ORDERED: FAMOTIDINE. 20 MG/2 ML VIAL IV SCH (22:00)
[2019-06-16] MEDS: FAMOTIDINE. 20 MG/2 ML VIAL IV SCH (22:17)
[2019-06-17 00:27] VITALS: BP 143/92
[2019-06-17] MEDS: LORAZEPAM 2 MG/1 ML VIAL IV PRN (01:20)
[2019-06-17 04:00] VITALS: BP_SYST 107; BP_SYST 134; BP_DIAS 49; BP_DIAS 68
[2019-06-17] MEDS: PIPERACILLIN/TAZOBACTAM/D5W 3.375 G in IV DEXTROSE 5% 50 ML IV SCH ×3 (05:36→21:19)
--- NOTE | 2019-06-17 05:37 | NUR ---
Patient tolerated vanilla pudding twice, had 4 BM, slept well. ID hospitalist came to see the patient and will continue on Zosyn until full course is finished. Patient is now on pureed diet after dr Sherwood checked the patient.
--- NOTE | 2019-06-17 08:00 | NUR ---
Received pt. resting in bed with at bedside. no acute distress or sob noted. Pt. is on tele monitor sinus rhythm . Pt. on 1L/M NC. Saturating at 95%. Pt has HASMUKH midline running prescribed fluids. Safety measures in place. call light within reach. will continue to monitor pt for safety and comfort.
[2019-06-17 11:12] VITALS: BP 94/54
[2019-06-17] MEDS: ONDANSETRON 4 MG/2 ML VIAL IV PRN ×2 (11:26→16:32)
[2019-06-17] MEDS: ACETAMINOPHEN 650 MG SUPP.RECT RC PRN (11:26)
[2019-06-17] MEDS ORDERED: SUCRALFATE 1 G TABLET PO SCH ×2 (14:00→16:30)
[2019-06-17] MEDS ORDERED: MORPHINE SULFATE 2 MG/1 ML DISP.SYRIN IV PRN (14:15)
[2019-06-17] MEDS ORDERED: ACETAMINOPHEN 325 MG TABLET PO PRN (14:15)
[2019-06-17] MEDS: SUCRALFATE 1 G/10 ML LIQUID UDC GT SCH ×3 (14:22→21:17)
[2019-06-17] MEDS: DULOXETINE 60 MG CAPSULE.DR PO SCH (14:25)
[2019-06-17 15:08] VITALS: BP 157/82
[2019-06-17] MEDS: GABAPENTIN 100 MG CAPSULE PO SCH (16:23)
[2019-06-17] MEDS: IV D5/ 0.9% NACL 1,000 ML IV PRN (16:42)
--- NOTE | 2019-06-17 18:00 | NUR ---
PT RESTING COMFORTABLY IN BED. PAIN MEDS GIVEN PO AND VIA SUPPOSITORY. IV ABX GIVEN. IVF RUNNING. HASMUKH MIDLINE FLUSHED AND PATENT. PT ON PUREED DIET. PT ON 1 L/M O2 VIA NC SATS OF 92%. FAMILY AT BEDSIDE. PT HAD 3 BMS. NO ACUTE DISTRESS NOTED. NO SOB NOTED. UPDATED MED LIST FOR COMFORT. BED LOCKED AND IN LOW POSITION. CALL LIGHT WITHIN REACH. WILL GIVE REPORT TO INCOMING SHIFT RN.
[2019-06-17 20:43] VITALS: BP 147/51
[2019-06-17] MEDS ORDERED: TRAZODONE 50 MG TABLET PO SCH (21:00)
[2019-06-17] MEDS ORDERED: LATANOPROST OPHT DROP 2.5 ML BOTTLE EACHEYE SCH (21:00)
[2019-06-17] MEDS ORDERED: ATORVASTATIN 10 MG TABLET PO SCH (21:00)
[2019-06-17] MEDS: FAMOTIDINE. 20 MG/2 ML VIAL IV SCH (21:18)
[2019-06-18 00:38] VITALS: BP 148/73
[2019-06-18] MEDS: PIPERACILLIN/TAZOBACTAM/D5W 3.375 G in IV DEXTROSE 5% 50 ML IV SCH ×2 (05:12→15:07)
[2019-06-18 05:43] VITALS: BP 100/51
[2019-06-18] MEDS: SUCRALFATE 1 G/10 ML LIQUID UDC GT SCH ×2 (06:38→12:27)
[2019-06-18 06:40] LABS: BILIRUBIN,TOTAL 0.3 mg/dL (0.2-1.0); CREATININE 0.7 mg/dL (0.6-1.3); MAGNESIUM 1.8 mg/dL (1.8-2.4); PHOSPHOROUS 2.3 mg/dL (2.5-4.9); TOTAL PROTEIN, SERUM 5.2 g/dL (6.4-8.2)
[2019-06-18 06:56] LABS: POTASSIUM 2.7 mmol/L (3.5-5.1)
--- NOTE | 2019-06-18 07:47 | NUR ---
Potassium is 2.7, Spoke with dr Honeycutt, received order for 60Meq of K one time. Endorsed to Tala DA SILVA, order placed.
[2019-06-18 08:00] LABS: MEAN CORPUSCULAR HEMOGLOBIN 26.5 uug (24.7-32.8); MEAN CORPUSCULAR HGB CONC 29 g/dL (32.3-35.6); PLATELET COUNT (AUTO) 197 K/uL (179-408); RED BLOOD CELL COUNT(AUTO) 4.37 MIL/uL (3.63-4.92)
[2019-06-18] MEDS ORDERED: POTASSIUM CHLORIDE 10 MEQ TAB.PRT.SR PO ONE (08:00)
[2019-06-18] MEDS ORDERED: POTASSIUM CHLORIDE 20 MEQ POWDER PACKET GT ONE ×2 (08:00→12:00)
--- NOTE | 2019-06-18 08:00 | NUR ---
Received patient awake, resting in bed. at bedside. Midline on HASMUKH intact and patent with IVF running. No n/v noted at this time. No s/s of acute distress. Safety measures implemented. Will continue to monitor.
[2019-06-18 08:04] LABS: HEMATOCRIT 39.8 % (31.2-41.9); HEMOGLOBIN 11.6 g/dL (10.9-14.3)
[2019-06-18] MEDS: GABAPENTIN 100 MG CAPSULE PO SCH (09:09)
[2019-06-18] MEDS: DULOXETINE 60 MG CAPSULE.DR PO SCH (09:09)
[2019-06-18 09:58] LABS: BASOPHILS % (MANUAL) 2 % (0-2); EOSINOPHILS % (MANUAL) 2 % (0-8); LYMPHOCYTES % (MANUAL) 7 % (20-40); METAMYELOCYTES % 1 % (0-1); MONOCYTES % (MANUAL) 10 % (2-10); NEUTROPHILS % (MANUAL) 78 % (42-75)
[2019-06-18] MEDS: POTASSIUM PHOSPHATE MM 5 MMOL in IV DEXTROSE 5% 100 ML IV SCH ×3 (10:58→13:17)
[2019-06-18 12:05] VITALS: BP 119/64
[2019-06-18] MEDS ORDERED: ACID1TAB4 PO (14:56)
[2019-06-18] MEDS ORDERED: SUCR1ORA GT (14:56)
[2019-06-18] MEDS ORDERED: DOCU-141 PO (14:56)
[2019-06-18] MEDS ORDERED: MAGN296S70 PO (14:56)
[2019-06-18] MEDS ORDERED: HYDR25SU33 RC (16:31)
--- NOTE | 2019-06-18 17:15 | NUR ---
Discharge orders in place. Patient to be discharged back to home. No s/s of acute distress. No SOB noted. No n/v episode. Discharge instructions and exit care regarding new prescriptions and continuity of care given to daughter at bedside. Family verbalized understanding. Vital signs are stable. Tolerated food orally. ID, midline and tele box removed. Discharged via ambulance.
--- NOTE | 2019-06-18 18:30 | NUR ---
Patient daughter, Annalee called regarding concern where midline was removed. Pictures sent to nursing station. Reviewed and advised to apply pressure and elevate. Charge nurse aware.
== END 2019-06-18 17:15 | disposition home or self-care (01) | DRG 177 ==
LOC: ER 20:47 → MEDSURG3 06-14 00:42 → TELE3 06-14 20:55
PROVIDERS: ADMIT Internal Medicine; ATTEND Internal Medicine
PROC: 05H933Z Insertion of Infusion Device into Right Brachial Vein, Percutaneous Approach (ICD-10-PCS; principal; 2019-06-14)
DX: J69.0 Pneumonitis due to inhalation of food and vomit (principal); L89.94 Pressure ulcer of unspecified site, stage 4; R53.2 Functional quadriplegia; G92 Toxic encephalopathy; J96.21 Acute and chronic respiratory failure with hypoxia; J96.22 Acute and chronic respiratory failure with hypercapnia; E43 Unspecified severe protein-calorie malnutrition; I50.33 Acute on chronic diastolic (congestive) heart failure; A04.9 Bacterial intestinal infection, unspecified; R18.8 Other ascites; E87.0 Hyperosmolality and hypernatremia; N39.0 Urinary tract infection, site not specified; D68.59 Other primary thrombophilia; J98.11 Atelectasis; G35 Multiple sclerosis; J44.9 Chronic obstructive pulmonary disease, unspecified; E87.6 Hypokalemia; M80.852D Other osteoporosis with current pathological fracture, left femur, subsequent encounter for fracture with routine healing; M80.851D Other osteoporosis with current pathological fracture, right femur, subsequent encounter for fracture with routine healing; I25.2 Old myocardial infarction; I34.0 Nonrheumatic mitral (valve) insufficiency; I25.10 Atherosclerotic heart disease of native coronary artery without angina pectoris; D64.9 Anemia, unspecified; M06.9 Rheumatoid arthritis, unspecified; D32.9 Benign neoplasm of meninges, unspecified; Z98.2 Presence of cerebrospinal fluid drainage device; Z87.440 Personal history of urinary (tract) infections; Z90.710 Acquired absence of both cervix and uterus; Z74.01 Bed confinement status; Z79.899 Other long term (current) drug therapy; K74.60 Unspecified cirrhosis of liver; Z87.891 Personal history of nicotine dependence; G89.29 Other chronic pain; M24.50 Contracture, unspecified joint; I51.7 Cardiomegaly; K59.00 Constipation, unspecified
CPT/HCPCS: 36415; 70030-TC; 70450; 71045; 82105; 83690; 83735; 84100; 85025; 85730; 86704; 86706; 86803; 87070; 87086; 93005; 93880; 94664; A4663; C1758; G0378; J0692; J2060; J2405; J2543; J3370; J3480; J3490; J7030; J7040; J7042; J7050; J7060; Q0162